=== PATIENT | male | born 1950 | race Caucasian/White ===

== ENCOUNTER → 2016-05-21 | Outpatient (CLI) | payer MEDICARE ==
--- NOTE | 2016-05-21 08:18 | US ---
EXAMINATION TYPE: US liver DATE OF EXAM: 05/21/2016 7:58 AM COMPARISON: CT on PACS CLINICAL HISTORY: elevated liver enzymes. EXAM MEASUREMENTS: Liver Length: 8.5 cm Gallbladder Wall: surgically absent CBD: 0.4 cm Right Kidney: 10.3 x 5.9 x 5.9 cm ANATOMY: Pancreas: visualized portions wnl Liver: wnl Gallbladder: Surgically absent CBD: Within normal limits Right Kidney: No hydronephrosis or masses seen 5.1 x 2.6 x 2.6 cm echogenic lesion between liver and superior pole right kidney, corresponds to fat containing adrenal tumor described on CT's. IMPRESSION: 1. Myolipoma of the right adrenal gland. 2. Changes of prior cholecystectomy.
[2016-05-21 09:16] LABS: ALT 169 U/L (21-72); AST 47 U/L (17-59); Alkaline Phosphatase 251 U/L (38-126); Amylase 94 U/L (30-110); Anion Gap 11 mmol/L; Blood Urea Nitrogen 12 mg/dL (9-20); Calcium 9.4 mg/dL (8.4-10.2); Carbon Dioxide 25 mmol/L (22-30); Chloride 106 mmol/L (98-107); Glucose 102 mg/dL (74-99); Non-African American GFR(MDRD) >60 (>60 ml/min/1.73 sqM); Potassium 3.7 mmol/L (3.5-5.1); Sodium 142 mmol/L (137-145); Total Bilirubin 0.6 mg/dL (0.2-1.3); Total Protein 6.2 g/dL (6.3-8.2)
== END | disposition home or self-care (01) ==
LOC: RADUSWWP 07:38
PROVIDERS: ATTEND Family Medicine
DX: D17.79 Benign lipomatous neoplasm of other sites (principal); Z90.49 Acquired absence of other specified parts of digestive tract
CPT/HCPCS: 76705; 80053; 82150; 83690

== ENCOUNTER 2016-06-07 09:58 | Emergency (ER) | payer MEDICARE ==
[2016-06-07] MEDS ORDERED: MORPHINE SULFATE 4 MG/ML SYRINGE IV STA ×2 (10:20→11:41)
[2016-06-07] MEDS ORDERED: SODIUM CHLORIDE 0.9% 1,000 ML IV STA (10:20)
[2016-06-07] MEDS ORDERED: ONDANSETRON 4 MG/2 ML VIAL IVP STA ×2 (10:20→11:41)
--- NOTE | 2016-06-07 10:23 | ED ---
General Adult HPI - General Chief complaint: Abdominal Pain Stated complaint: LIVER PROBLEMS Time Seen by Provider: 06/07/16 10:15 Source: patient, RN notes reviewed Mode of arrival: wheelchair Limitations: no limitations - History of Present Illness Initial comments: Patient 65-year-old male who presents emergency room today with a chief complaint of symptoms of nausea vomiting over the last 2-3 days. Patient admits to history of cannabinoid hyperemesis syndrome. Patient states that he' s also has a history of chronic pain due to a fall that occurred over 20 years ago. States he is working at home. States been unable to keep this down. Patient denies any abdominal pain currently. He denies any other complaints or associated symptoms. Patient denies any recent fever, chills, shortness of breath, chest pain, back pain, numbness or tingling, dysuria or hematuria, constipation or diarrhea, headaches or visual changes, or any other complaints. - Related Data Home Medications Medication Instructions Recorded Confirmed Morphine Sulfate Ir [Msir] 15 mg PO Q6H 06/07/16 06/07/16 amLODIPine BESYLATE/BENAZEPRIL 1 cap PO DAILY 06/07/16 06/07/16 [Lotrel 10-40 mg Capsule] Previous Rx's Medication Instructions Recorded Ondansetron Odt [Zofran ODT] 4 mg PO Q8HR PRN #15 tab 06/07/16 Allergies Allergy/AdvReac Type Severity Reaction Status Date / Time chloramphenicol Allergy Confusion Verified 06/07/16 11:21 [From Chloromycetin] chloramphenicol sod succ Allergy Confusion Verified 06/07/16 11:21 [From Chloromycetin] Penicillins Allergy Unknown Verified 06/07/16 11:21 Childhood quinine Allergy Unknown Verified 06/07/16 11:21 Childhood Review of Systems ROS Statement: Those systems with pertinent positive or pertinent negative responses have been documented in the HPI. ROS Other: All systems not noted in ROS Statement are negative. Past Medical History Past Medical History: GERD/Reflux, Hypertension, Liver Disease Additional Past Medical History / Comment(s): hip pain, History of Any Multi-Drug Resistant Organisms: None Reported Past Surgical History: Cholecystectomy Additional Past Surgical History / Comment(s): right hip, shoulder, elbows Past Psychological History: No Psychological Hx Reported Smoking Status: Never smoker Past Alcohol Use History: None Reported Past Drug Use History: Marijuana General Exam - General Exam Comments Initial Comments: General: The patient is awake and alert, in no distress, and does not appear acutely ill. Eye: Pupils are equal, round and reactive to light, extra-ocular movements are intact. No nystagmus. There is normal conjunctiva bilaterally. No signs of icterus. Ears, nose, mouth and throat: There are moist mucous membranes and no oral lesions. Neck: The neck is supple, there is no tenderness or JVD. Cardiovascular: There is a regular rate and rhythm. No murmur, rub or gallop is appreciated. Respiratory: Lungs are clear to auscultation, respirations are non-labored, breath sounds are equal. No wheezes, stridor, rales, or rhonchi. Gastrointestinal: Soft, non-distended, non-tender abdomen without masses or organomegaly noted. There is no rebound or guarding present. No CVA tenderness. Bowel sounds are unremarkable. Musculoskeletal: Normal ROM, no tenderness. Strength 5/5. Sensation intact. Pulses equal bilaterally 2+. Neurological: A&O x 3. CN II-XII intact, There are no obvious motor or sensory deficits. Coordination appears grossly intact. Speech is normal. Skin: Skin is warm and dry and no rashes or lesions are noted. Psychiatric: Cooperative, appropriate mood & affect, normal judgment. Limitations: no limitations Course Vital Signs 06/07/16 06/07/16 10:00 12:11 Temperature 97.0 F L 100.5 F H Pulse Rate 122 H 100 Respiratory 18 20 Rate Blood Pressure 172/93 140/80 O2 Sat by Pulse 99 97 Oximetry Medical Decision Making - Medical Decision Making Patient reexamined at this time shows no signs of distress. Patient. Better here in the emergency room. Patient will be discharged home with nausea medication. Advised to continue oral fluids. His mid to some history of constipation. Magnesium citrate. Advised to follow-up family doctor over the next 2 days or return here to emergency room if any symptoms increase or worsen or for any other concerns. - Lab Data Result diagrams: 06/07/16 10:40 06/07/16 10:40 Lab Results 06/07/16 06/07/16 06/07/16 Range/Units 10:40 10:40 11:35 WBC 9.0 (3.8-10.6) k/uL RBC 5.15 (4.30-5.90) m/uL Hgb 16.0 (13.0-17.5) gm/dL Hct 47.1 (39.0-53.0) % MCV 91.5 (80.0-100.0) fL MCH 31.2 (25.0-35.0) pg MCHC 34.0 (31.0-37.0) g/dL RDW 12.9 (11.5-15.5) % Plt Count 271 (150-450) k/uL Neutrophils % 90 % Lymphocytes % 7 % Monocytes % 3 % Eosinophils % 0 % Basophils % 0 % Neutrophils # 8.1 H (1.3-7.7) k/uL Lymphocytes # 0.6 L (1.0-4.8) k/uL Monocytes # 0.2 (0-1.0) k/uL Eosinophils # 0.0 (0-0.7) k/uL Basophils # 0.0 (0-0.2) k/uL Sodium 147 H (137-145) mmol/L Potassium 3.6 (3.5-5.1) mmol/L Chloride 103 (98-107) mmol/L Carbon Dioxide 28 (22-30) mmol/L Anion Gap 16 mmol/L BUN 18 (9-20) mg/dL Creatinine 0.90 (0.66-1.25) mg/dL Est GFR (MDRD) Af Amer >60 (>60 ml/min/1.73 sqM) Est GFR (MDRD) Non-Af >60 (>60 ml/min/1.73 sqM) Glucose 168 H (74-99) mg/dL Calcium 11.3 H (8.4-10.2) mg/dL Total Bilirubin 0.8 (0.2-1.3) mg/dL AST 44 (17-59) U/L ALT 134 H (21-72) U/L Alkaline Phosphatase 249 H (38-126) U/L Total Protein 7.0 (6.3-8.2) g/dL Albumin 4.3 (3.5-5.0) g/dL Amylase 48 (30-110) U/L Lipase 53 (23-300) U/L Urine Color Yellow Urine Appearance Turbid (Clear) Urine pH 8.5 H (5.0-8.0) Ur Specific [place] 1.017 (1.001-1.035) Urine Protein Trace H (Negative) Urine Glucose (UA) Negative (Negative) Urine Ketones Negative (Negative) Urine Blood Negative (Negative) Urine Nitrate Negative (Negative) Urine Bilirubin Negative (Negative) Urine Urobilinogen <2.0 (<2.0) mg/dL Ur Leukocyte Esterase Negative (Negative) Amorphous Sediment Occasional H (None) /hpf Urine Mucus Occasional H (None) /hpf Disposition Clinical Impression: Nausea & vomiting Disposition: HOME SELF-CARE Condition: Good Instructions: Acute Nausea and Vomiting (ED) Additional Instructions: Please use medication as discussed. Please follow-up with family doctor in the next 2 days of symptoms have not improved. Please return to emergency room if the symptoms increase or worsen or for any other concerns. Prescriptions: Ondansetron Odt [Zofran ODT] 4 mg PO Q8HR PRN #15 tab PRN Reason: Nausea Time of Disposition: 12:24
[2016-06-07] MEDS: SODIUM CHLORIDE 0.9% 1,000 ML IV STA ×2 (10:48→12:03)
[2016-06-07 11:04] LABS: Basophils % (A) 0 %; CH 32.5; CHCM 35.6; Eosinophils % (A) 0 %; HCT 47.1 % (39.0-53.0); HDW 2.63; Luc # (Auto) 0.03; Luc % (Auto) 0; Lymphocytes # (A) 0.6 k/uL (1.0-4.8); Lymphocytes % (A) 7 %; MCH 31.2 pg (25.0-35.0); MCV 91.5 fL (80.0-100.0); Mean Platelet Volume 6.4; Monocytes # (A) 0.2 k/uL (0-1.0); Monocytes % (A) 3 %; Neutrophils # (A) 8.1 k/uL (1.3-7.7); Neutrophils % (A) 90 %; RBC 5.15 m/uL (4.30-5.90); RDW 12.9 % (11.5-15.5); WBC (Perox) 9.26
--- NOTE | 2016-06-07 11:08 | XR ---
EXAMINATION TYPE: XR KUB DATE OF EXAM: 06/07/2016 11:03 AM CLINICAL HISTORY: Abdominal pain with vomiting and constipation for 4 days. TECHNIQUE: 2 upright KUB images of the abdomen are obtained. COMPARISON: CT abdomen and pelvis July 15, 2014 FINDINGS: Scattered gas is seen in non-distended small bowel loops. Gas and fecal material is seen in non-distended colon and rectum. Lung bases are clear. Cholecystectomy clips are redemonstrated. Osseous structures are demineralized. Surgical changes from right pelvic fracture and repair are redemonstrated. Advanced arthropathy righ t hip joint with lateral subluxation and advanced joint space loss with subchondral cystic change and ossific bridging is all redemonstrated. Healed fracture left pubic symphysis is again seen. IMPRESSION: Overall nonobstructive bowel gas pattern.
[2016-06-07 11:09] LABS: ALT 134 U/L (21-72); AST 44 U/L (17-59); Alkaline Phosphatase 249 U/L (38-126); Amylase 48 U/L (30-110); Anion Gap 16 mmol/L; Blood Urea Nitrogen 18 mg/dL (9-20); Calcium 11.3 mg/dL (8.4-10.2); Carbon Dioxide 28 mmol/L (22-30); Chloride 103 mmol/L (98-107); Glucose 168 mg/dL (74-99); Non-African American GFR(MDRD) >60 (>60 ml/min/1.73 sqM); Potassium 3.6 mmol/L (3.5-5.1); Sodium 147 mmol/L (137-145); Total Bilirubin 0.8 mg/dL (0.2-1.3)
[2016-06-07] MEDS ORDERED: FAMOTIDINE 20 MG/2 ML VIAL IV STA (11:53)
[2016-06-07 12:12] VITALS: BP 140/80; PULSE 100; RESP 20; TEMP 100.5
[2016-06-07 12:12] LABS: Amorphous Sediment,Urine Occasional /hpf; Appearance,Urine Turbid (Clear); Bilirubin,Urine Negative (Negative); Glucose,Urine (UA) Negative (Negative); Ketones,Urine Negative (Negative); Leukocyte Esterase,Urine Negative (Negative); Mucus,Urine Occasional /hpf; Nitrite,Urine Negative (Negative); PH, Urine 8.5 (5.0-8.0); Particle Count 48063; Protein,Urine Trace (Negative); Specific Gravity,Urine 1.017 (1.001-1.035); UA Billing (MACRO vs. MICRO) MICRO; Urobilinogen,Urine <2.0 mg/dL (<2.0)
[2016-06-07] MEDS ORDERED: MAGNESIUM CITRATE 296 ML BOTTLE PO ONE (12:25)
== END 2016-06-07 12:44 | disposition home or self-care (01) ==
LOC: EC 09:58
DX: R11.2 Nausea with vomiting, unspecified (principal); I10 Essential (primary) hypertension; G89.29 Other chronic pain; Z79.891 Long term (current) use of opiate analgesic; Z79.899 Other long term (current) drug therapy; Z88.0 Allergy status to penicillin; Z88.8 Allergy status to other drugs, medicaments and biological substances
CPT/HCPCS: 96374; 96375 ×2; 96376 ×2; 96361 ×3; 36415; 80053; 82150; 83690; 85025; 81001; 74000; 99284; J2270; J2405

== ENCOUNTER → 2017-05-12 | Outpatient (CLI) | payer MEDICARE ==
--- NOTE | 2017-05-12 16:04 | CT ---
EXAMINATION TYPE: CT abdomen wo/w con DATE OF EXAM: 05/12/2017 COMPARISON: 12/19/2014 CT scan, ultrasound 04/07/2017 HISTORY: Elevated liver enzymes CT DLP: 1746 mGycm Automated exposure control for dose reduction was used. TECHNIQUE: Helical acquisition of images was performed from the lung bases through the top of iliac crest to include entire abdomen. CONTRAST: 100 cc Omnipaque [id number] FINDINGS: LUNG BASES: No significant abnormality is appreciated. LIVER/GB: Liver demonstrates intrahepatic and extrahepatic biliary dilation with postcholecystectomy changes.. PANCREAS: No significant abnormality is seen. SPLEEN: No significant abnormality is seen. ADRENALS: Large fat containing mass measuring 5.8 cm in the right adrenal gland is most typical of a myelo lipoma.. Thickening left left adrenal gland be seen with adrenal hyperplasia. KIDNEYS: There are numerous hypodense lesions within the kidneys some of which are too small to kevon cterize. Larger lesions compatible simple cyst. Is a least one lesion within the mid to lower pole po sterior cortex which does not meet the criteria of a simple cyst measuring 1.2 cm and should be corre lated with MRI. BOWEL: No significant abnormality is seen. LYMPH NODES: No significant abnormality is seen. OSSEOUS STRUCTURES: Degenerative changes spine noted. Extensive previous surgery involving the pelvi c bones.. FREE AIR: No free air is visualized. OTHER: Atherosclerotic change aorta. No evidence of aneurysm. Small hiatal hernia incidentally noted IMPRESSION: 1. There is moderate intrahepatic and extra hepatic biliary dilation. Findings likely are related to postsurgical cholecystectomy changes. The common bile duct does measure greater than 1 cm at 1.6 cm w hich does appear to be dilated for postcholecystectomy patients. This could be correlated with MRCP o r ERCP as clinically warranted. 2. Large right adrenal mass appears stable and most typical myelo lipoma. 3. Numerous renal lesions most likely in the basis of hepatic cysts. There is a single lesion within the mid to lower pole right renal cortex which does not meet the criteria of a simple cyst by Hounsfi eld unit measurement. This could be correlated with MRI.
== END | disposition home or self-care (01) ==
LOC: RADCTMAIN 14:42
DX: K83.8 Other specified diseases of biliary tract (principal); E27.8 Other specified disorders of adrenal gland; N28.89 Other specified disorders of kidney and ureter
CPT/HCPCS: 74170; Q9967

== ENCOUNTER → 2017-07-14 | Outpatient (CLI) | payer MEDICARE ==
--- NOTE | 2017-07-15 00:06 | MR ---
EXAMINATION TYPE: MR abdomen wo/w con DATE OF EXAM: 07/14/2017 COMPARISON: NONE HISTORY: Abnormal findings follow-up abnormal renal CT scan. CONTRAST: Standard multiplanar, multisequence MRI departmental protocol utilizing 10 mL intravenous Gadavist ga dolinium contrast. FINDINGS: There is mild ectasia of the biliary tree. Cholecystectomy is noted. Common bile duct is 1. 5 cm. There is no evidence of pancreatic mass. Spleen appears normal. I see no discrete liver mass. There are bilateral renal cortical cysts and more on the left side. The largest is on the left side a nd measures 2.4 cm. I see no evidence of an intestinal mass. There is no sign of ascites. There is no sign of pleural effusion. There is no evidence of retroperitoneal adenopathy. There is a fat signal mass involving the right adrenal gland. This is probably a lipoma or myelolipoma. There is a small mi xed signal 1 cm somewhat exophytic cortical lesion on the posterior right kidney. This appears nonenh ancing. IMPRESSION: Renal cortical cysts. Atypical nonenhancing small lesion on the posterior right kidney is not changed in size compared to CT scan of 05/12/2017 and is probably a complex cyst. I think this lesion is prese nt on the old CT scan of 07/15/2014 and not changed in size and therefore no further surveillance is n eeded. There is stable fat signal mass on the right adrenal gland consistent with benign disease.
== END | disposition home or self-care (01) ==
LOC: RADMRIMAIN 10:26
DX: N28.1 Cyst of kidney, acquired (principal); N28.89 Other specified disorders of kidney and ureter; E27.8 Other specified disorders of adrenal gland
CPT/HCPCS: 74183; A9581

== ENCOUNTER → 2019-10-18 | Outpatient (CLI) | payer MEDICARE ==
--- NOTE | 2019-10-18 13:06 | US ---
EXAMINATION TYPE: US liver DATE OF EXAM: 10/18/2019 COMPARISON: CT 05/12/2017 CLINICAL HISTORY: 69-year-old male R74.8 Abn liver enzymes. Elevated liver enzymes, history of cholec ystectomy TECHNIQUE: Multiple sonographic images of the right upper quadrant are obtained. FINDINGS: EXAM MEASUREMENTS: Liver Length: 15.0 cm CBD: 1.4 cm Right Kidney: 10.6 x 5.7 x 5.5 cm Pancreas: obscured by overlying midline bowel gas Liver: mildly heterogeneous. No focal lesion is identified. Gallbladder: surgically absent Evidence for sonographic Briones's sign: no CBD: dilated, limited by overlying bowel gas . This measures about 1.7 cm on the prior CT. Right Kidney: 0.7cm echogenic focus mid pole most suggestive of a vascular calcification when correl ating with CT, 1.3cm cystic area lateral superior pole, 1.1cm cystic area lateral mid pole 4.1 x 2.9 x 3.9cm echogenic area superior to right kidney, seen on previous scan. When correlated w ith CT, most compatible with a benign myelolipoma. IMPRESSION: 1. Dilated bile duct at 1.4 cm seems to be unchanged back to 2018. Correlate with alkaline phosphatas e and bilirubin levels. 2. Status post cholecystectomy. 3. Known, benign 4.1 cm right-sided adrenal myelolipoma.
[2019-10-18 13:29] LABS: Albumin 4.7 g/dL (3.5-5.0); Calcium 9.8 mg/dL (8.4-10.2); Potassium 4.5 mmol/L (3.5-5.1); Total Bilirubin 0.6 mg/dL (0.2-1.3); Total Protein 7.7 g/dL (6.3-8.2)
[2019-10-18 17:35] LABS: Protein, Total 7.2 g/dL (6.2-8.2)
[2019-10-18 18:01] LABS: % Iron Saturation 23.01 (15.00-50.00)
[2019-10-18 18:09] LABS: Ferritin 57.4 ng/mL (22.0-322.0)
[2019-10-19 13:29] LABS: Ceruloplasmin 23.3 mg/dL (20.0-60.0)
[2019-10-20 12:31] LABS: Liver/Kidney Microsome Antibod 1.3 UNITS (<=20)
[2019-10-21 10:27] LABS: Albumin 4.51 g/dL (3.80-4.90); Gamma Globulin 0.94 g/dL (0.70-1.50)
== END | disposition home or self-care (01) ==
LOC: RADUSWWP 10:33
PROVIDERS: ATTEND Internal Medicine Gastroenterology
DX: K83.8 Other specified diseases of biliary tract (principal); D17.79 Benign lipomatous neoplasm of other sites; Z90.49 Acquired absence of other specified parts of digestive tract
CPT/HCPCS: 36415; 76705; 80053; 81596; 82103; 82150; 82390; 82728; 83516; 83540; 83550; 83690; 84165; 84481; 86376

== ENCOUNTER 2022-01-20 12:22 | Inpatient (IN) | payer MEDICARE ==
[2022-01-20 12:50] LABS: Glucose,Whole Blood 142 mg/dL (70-110)
[2022-01-20 12:54] LABS: Appearance,Urine Clear (Clear); Bilirubin,Urine Negative (Negative); Blood,Urine Small (Negative); Color,Urine Light Yellow; Glucose,Urine (UA) Negative (Negative); Ketones,Urine 1+ (Negative); Leukocyte Esterase,Urine Negative (Negative); Mucus,Urine Rare /hpf; Nitrite,Urine Negative (Negative); Protein,Urine 1+ (Negative); RBC,Urine <1 /hpf (0-5); Specific Gravity,Urine 1.014 (1.001-1.035); Squamous Epithelial Cell,Urine <1 /hpf (0-4); Urobilinogen,Urine <2.0 mg/dL (<2.0); WBC,Urine <1 /hpf (0-5)
[2022-01-20 13:06] LABS: Amphetamine Screen,Urine Not Detected (NotDetected); Barbiturate Screen,Urine Not Detected (NotDetected); Benzodiazepines Screen,Urine Not Detected (NotDetected); Cocaine Screen,Urine Not Detected (NotDetected); Methadone Screen, Urine Not Detected (NotDetected); Opiate Screen,Urine Not Detected (NotDetected); Oxycodone Screen, Urine Detected (NotDetected); Phencyclidine Screen,Urine Not Detected (NotDetected); Tricyclic Antidepressant,Urine Not Detected (NotDetected); Urn Cannabinoid Scrn Detected (NotDetected)
[2022-01-20 13:21] LABS: Basophils % (A) 0 %; Eosinophils # (A) 0.2 k/uL (0-0.7); Eosinophils % (A) 1 %; HCT 52.1 % (39.0-53.0); HGB 17.1 gm/dL (13.0-17.5); Lymphocytes % (A) 15 %; MCH 31.5 pg (25.0-35.0); MCHC 32.9 g/dL (31.0-37.0); MCV 95.9 fL (80.0-100.0); Mean Platelet Volume 7.8; Monocytes # (A) 0.5 k/uL (0-1.0); Monocytes % (A) 4 %; Neutrophils # (A) 10.2 k/uL (1.3-7.7); Neutrophils % (A) 79 %; Platelet Count 186 k/uL (150-450); RBC 5.43 m/uL (4.30-5.90); RDW 12.3 % (11.5-15.5)
--- NOTE | 2022-01-20 13:28 | CT ---
EXAMINATION TYPE: CT brain renny wo con DATE OF EXAM: 01/20/2022 COMPARISON: None HISTORY: 70-year-old male with pain after unwitnessed fall CT DLP: 1504.2 mGycm Automated exposure control for dose reduction was used. Technique: Examination of the head was done in axial plane without intravenous contrast. Coronal and sagittal reconstructions performed. CT of the cervical spine was obtained in axial plane without intravenous injection of contrast mater ial. Coronal and sagittal reformatted images were obtained from the axial views for evaluation of f ractures, spinal alignment and canal. FINDINGS: Head: There is no evidence of acute intracranial hemorrhage, acute ischemic changes, mass, mass-effect, or extra-axial fluid collection. There is no effacement of cerebral sulci or basal subarachnoid cister ns. There is no hydrocephalus. There is no midline shift. Honeycutt-white matter distinction is preserv ed. Mild patchy white matter hypodensities in the surgical hemispheres. Rightward nasal septal deviation. Mild mucosal thickening ethmoid air cells. Mastoid air cells are we ll pneumatized. Orbits and globes are intact. Cervical spine: No craniocervical junction abnormality, predental space widening, or prevertebral soft tissue swellin g. Degenerative change of the C1 dens articulation. Mild multilevel degenerative disc disease throughout the cervical spine. Advanced hypertrophic facet and uncovertebral joint arthropathy throughout. Some degenerative bony an kylosis of the facet joints says that C3-C4 on the right and C4-C5 on the left. No acute fracture of the cervical spine. Alignment is maintained. Variable mild to moderate bilateral neuroforaminal stenoses. Sagittal and coronal reformatted images confirm above findings. COMBINED IMPRESSION: 1. No acute intracranial abnormality seen. Mild patchy burden of chronic small vessel ischemic diseas e. 2. Moderate multilevel spondylotic change. No acute fracture or malalignment of the cervical spine.
--- NOTE | 2022-01-20 13:30 | XR ---
EXAMINATION TYPE: XR chest 2V, XR pelvis AP view DATE OF EXAM: 01/20/2022 COMPARISON: None HISTORY: 71-year-old male fall, confusion, pain FINDINGS: Chest: Heart mildly enlarged. Mild interstitial prominence of the chronic appearance. No consolidation, pneu mothorax, or pleural effusion. The cardiomediastinal silhouette, aorta, and pulmonary vasculature are within normal limits. Lungs and pleural spaces are clear. Pelvis: Osteopenia. Pelvis is rotated towards the right. Degenerative changes left SI joint. Extensive previo us fracture fixation throughout the right side of the pelvis. There is end-stage [id number] degener ative change at the right hip with bony remodeling. There appears to be a chronic healed fracture def ormity of the right femoral neck. No displaced fracture otherwise seen. IMPRESSION: 1. Chest: Mild cardiomegaly. There are chronic appearing changes. No focal infiltrate or pleural effu cintia. 2. Pelvis: Limited by osteopenia and rotation. Previous internal fixation of fracture deformities inv olving the right hemipelvis. There is posttraumatic end-stage, [id number] right hip OA with bony re modeling. Suspect old healed fracture of the right femoral neck as well. No new displaced fracture cl early identified.
[2022-01-20 13:37] LABS: ALT 29 U/L (4-49); AST 29 U/L (17-59); African American GFR (CKD) >90 (>60 ml/min/1.73 sqM); Albumin 4.5 g/dL (3.5-5.0); Alcohol <10 mg/dL; Alkaline Phosphatase 122 U/L (38-126); Anion Gap 15 mmol/L; Blood Urea Nitrogen 14 mg/dL (9-20); Calcium 8.9 mg/dL (8.4-10.2); Carbon Dioxide 21 mmol/L (22-30); Chloride 103 mmol/L (98-107); Glucose 152 mg/dL (74-99); Non-African American GFR(CKD) 80 (>60 ml/min/1.73 sqM); Potassium 3.7 mmol/L (3.5-5.1); Sodium 139 mmol/L (137-145); Total Bilirubin 0.8 mg/dL (0.2-1.3)
[2022-01-20 13:46] LABS: Partial Thromboplastin Time 21.3 sec (22.0-30.0)
--- NOTE | 2022-01-20 13:46 | ED ---
General Adult HPI - General Chief complaint: Altered Mental Status Stated complaint: AMS Time Seen by Provider: 01/20/22 12:24 Source: patient, family, EMS, RN notes reviewed, old records reviewed Mode of arrival: EMS Limitations: altered mental status - History of Present Illness Initial comments: 71-year-old male who presents with altered level consciousness, agitation. Patient had been found by family members after falling off the couch. He was p reviously sleeping on the couch paramedics were called. According to the daughter the patient had abnormal respirations. He was agitated and required Versed by paramedics. There was no witnessed seizure activity. The patient had no preceding illness or complaint. Upon arrival he is unable to give a history. He appears to be moving all things symmetrically. There is no external signs of head trauma. - Related Data Home Medications Medication Instructions Recorded Confirmed amLODIPine BESYLATE/BENAZEPRIL 1 cap PO DAILY 06/07/16 01/20/22 [Lotrel 10-40 mg Capsule] oxyCODONE-APAP 10-325MG [Percocet 1 tab PO QID 01/20/22 01/20/22 10-325 mg] Allergies Allergy/AdvReac Type Severity Reaction Status Date / Time chloramphenicol Allergy Confusion Verified 01/20/22 14:40 [From Chloromycetin] chloramphenicol sod succ Allergy Confusion Verified 01/20/22 14:40 [From Chloromycetin] Penicillins Allergy Unknown Verified 01/20/22 14:40 Childhood quinine Allergy Unknown Verified 01/20/22 14:40 Childhood Review of Systems ROS Statement: Those systems with pertinent positive or pertinent negative responses have been documented in the HPI. ROS Other: All systems not noted in ROS Statement are negative. Past Medical History Past Medical History: GERD/Reflux, Hypertension, Liver Disease Additional Past Medical History / Comment(s): hip pain, History of Any Multi-Drug Resistant Organisms: None Reported Past Surgical History: Cholecystectomy Additional Past Surgical History / Comment(s): right hip, shoulder, elbows Past Psychological History: No Psychological Hx Reported Past Alcohol Use History: None Reported Past Drug Use History: Marijuana General Exam Limitations: altered mental status General appearance: alert, in distress Head exam: Present: atraumatic, normocephalic Eye exam: Present: normal appearance, PERRL ENT exam: Present: mucous membranes dry Neck exam: Present: normal inspection. Absent: tenderness, meningismus Respiratory exam: Present: normal lung sounds bilaterally. Absent: respiratory distress, wheezes Cardiovascular Exam: Present: regular rate, normal rhythm GI/Abdominal exam: Present: soft. Absent: distended, tenderness, guarding Extremities exam: Present: normal capillary refill Neurological exam: Present: alert. Absent: oriented X3, motor sensory deficit Skin exam: Present: warm, dry, intact. Absent: cyanosis, diaphoretic Course Vital Signs 01/20/22 12:25 Temperature 98.2 F Pulse Rate 87 Respiratory 18 Rate Blood Pressure 132/81 O2 Sat by Pulse 100 Oximetry EKG Findings - EKG Comments: EKG Findings:: EKG: Sinus rhythm, rate of 60, CO interval 132, QRS duration 103, QTC [address] segment changes. Medical Decision Making - Medical Decision Making 71-year-old male with agitation, altered, concern for new onset seizure. Patient is in sinus rhythm. Head CT is negative for itch cream hemorrhage or mass effect, relatively normal laboratory testing. Patient given Keppra in the emergency department. He will be admitted with seizure precautions, monitored on telemetry. Case discussed with Dr. Santiago who will admit. - Lab Data Result diagrams: 01/20/22 12:52 01/20/22 12:52 Lab Results 01/20/22 01/20/22 01/20/22 Range/Units 12:44 12:49 12:52 WBC 13.0 H (3.8-10.6) k/uL RBC 5.43 (4.30-5.90) m/uL Hgb 17.1 (13.0-17.5) gm/dL Hct 52.1 (39.0-53.0) % MCV 95.9 (80.0-100.0) fL MCH 31.5 (25.0-35.0) pg MCHC 32.9 (31.0-37.0) g/dL RDW 12.3 (11.5-15.5) % Plt Count 186 (150-450) k/uL MPV 7.8 Neutrophils % 79 % Lymphocytes % 15 % Monocytes % 4 % Eosinophils % 1 % Basophils % 0 % Neutrophils # 10.2 H (1.3-7.7) k/uL Lymphocytes # 2.0 (1.0-4.8) k/uL Monocytes # 0.5 (0-1.0) k/uL Eosinophils # 0.2 (0-0.7) k/uL Basophils # 0.0 (0-0.2) k/uL PT (9.0-12.0) sec INR (<1.2) APTT (22.0-30.0) sec Sodium (137-145) mmol/L Potassium (3.5-5.1) mmol/L Chloride (98-107) mmol/L Carbon Dioxide (22-30) mmol/L Anion Gap mmol/L BUN (9-20) mg/dL Creatinine (0.66-1.25) mg/dL Est GFR (CKD-EPI)AfAm (>60 ml/min/1.73 sqM) Est GFR (CKD-EPI)NonAf (>60 ml/min/1.73 sqM) Glucose (74-99) mg/dL POC Glucose (mg/dL) 142 H (70-110) mg/dL POC Glu Insole Rasper ID Dayhoit, Rigoberto Calcium (8.4-10.2) mg/dL Total Bilirubin (0.2-1.3) mg/dL AST (17-59) U/L ALT (4-49) U/L Alkaline Phosphatase (38-126) U/L Ammonia (<30) umol/L Troponin I (0.000-0.034) ng/mL Total Protein (6.3-8.2) g/dL Albumin (3.5-5.0) g/dL Urine Color Light Yellow Urine Appearance Clear (Clear) Urine pH 5.0 (5.0-8.0) Ur Specific Moon 1.014 (1.001-1.035) Urine Protein 1+ H (Negative) Urine Glucose (UA) Negative (Negative) Urine Ketones 1+ H (Negative) Urine Blood Small H (Negative) Urine Nitrite Negative (Negative) Urine Bilirubin Negative (Negative) Urine Urobilinogen <2.0 (<2.0) mg/dL Ur Leukocyte Esterase Negative (Negative) Urine RBC <1 (0-5) /hpf Urine WBC <1 (0-5) /hpf Ur Squamous Epith Cells <1 (0-4) /hpf Urine Mucus Rare H (None) /hpf Urine Opiates Screen Not Detected (NotDetected) Ur Oxycodone Screen Detected H (NotDetected) Urine Methadone Screen Not Detected (NotDetected) Ur Propoxyphene Screen Not Detected (NotDetected) Ur Barbiturates Screen Not Detected (NotDetected) U Tricyclic Antidepress Not Detected (NotDetected) Ur Phencyclidine Scrn Not Detected (NotDetected) Ur Amphetamines Screen Not Detected (NotDetected) U Methamphetamines Scrn Not Detected (NotDetected) U Benzodiazepines Scrn Not Detected (NotDetected) Urine Cocaine Screen Not Detected (NotDetected) U Marijuana (THC) Screen Detected H (NotDetected) Serum Alcohol mg/dL 01/20/22 01/20/22 01/20/22 Range/Units 12:52 12:52 12:52 WBC (3.8-10.6) k/uL RBC (4.30-5.90) m/uL Hgb (13.0-17.5) gm/dL Hct (39.0-53.0) % MCV (80.0-100.0) fL MCH (25.0-35.0) pg MCHC (31.0-37.0) g/dL RDW (11.5-15.5) % Plt Count (150-450) k/uL MPV Neutrophils % % Lymphocytes % % Monocytes % % Eosinophils % % Basophils % % Neutrophils # (1.3-7.7) k/uL Lymphocytes # (1.0-4.8) k/uL Monocytes # (0-1.0) k/uL Eosinophils # (0-0.7) k/uL Basophils # (0-0.2) k/uL PT 11.0 (9.0-12.0) sec INR 1.0 (<1.2) APTT 21.3 L (22.0-30.0) sec Sodium 139 (137-145) mmol/L Potassium 3.7 (3.5-5.1) mmol/L Chloride 103 (98-107) mmol/L Carbon Dioxide 21 L (22-30) mmol/L Anion Gap 15 mmol/L BUN 14 (9-20) mg/dL Creatinine 0.97 (0.66-1.25) mg/dL Est GFR (CKD-EPI)AfAm >90 (>60 ml/min/1.73 sqM) Est GFR (CKD-EPI)NonAf 80 (>60 ml/min/1.73 sqM) Glucose 152 H (74-99) mg/dL POC Glucose (mg/dL) (70-110) mg/dL POC Glu Insole Rasper ID Calcium 8.9 (8.4-10.2) mg/dL Total Bilirubin 0.8 (0.2-1.3) mg/dL AST 29 (17-59) U/L ALT 29 (4-49) U/L Alkaline Phosphatase 122 (38-126) U/L Ammonia 22 (<30) umol/L Troponin I (0.000-0.034) ng/mL Total Protein 7.0 (6.3-8.2) g/dL Albumin 4.5 (3.5-5.0) g/dL Urine Color Urine Appearance (Clear) Urine pH (5.0-8.0) Ur Specific Moon (1.001-1.035) Urine Protein (Negative) Urine Glucose (UA) (Negative) Urine Ketones (Negative) Urine Blood (Negative) Urine Nitrite (Negative) Urine Bilirubin (Negative) Urine Urobilinogen (<2.0) mg/dL Ur Leukocyte Esterase (Negative) Urine RBC (0-5) /hpf Urine WBC (0-5) /hpf Ur Squamous Epith Cells (0-4) /hpf Urine Mucus (None) /hpf Urine Opiates Screen (NotDetected) Ur Oxycodone Screen (NotDetected) Urine Methadone Screen (NotDetected) Ur Propoxyphene Screen (NotDetected) Ur Barbiturates Screen (NotDetected) U Tricyclic Antidepress (NotDetected) Ur Phencyclidine Scrn (NotDetected) Ur Amphetamines Screen (NotDetected) U Methamphetamines Scrn (NotDetected) U Benzodiazepines Scrn (NotDetected) Urine Cocaine Screen (NotDetected) U Marijuana (THC) Screen (NotDetected) Serum Alcohol <10 mg/dL 01/20/22 Range/Units 12:52 WBC (3.8-10.6) k/uL RBC (4.30-5.90) m/uL Hgb (13.0-17.5) gm/dL Hct (39.0-53.0) % MCV (80.0-100.0) fL MCH (25.0-35.0) pg MCHC (31.0-37.0) g/dL RDW (11.5-15.5) % Plt Count (150-450) k/uL MPV Neutrophils % % Lymphocytes % % Monocytes % % Eosinophils % % Basophils % % Neutrophils # (1.3-7.7) k/uL Lymphocytes # (1.0-4.8) k/uL Monocytes # (0-1.0) k/uL Eosinophils # (0-0.7) k/uL Basophils # (0-0.2) k/uL PT (9.0-12.0) sec INR (<1.2) APTT (22.0-30.0) sec Sodium (137-145) mmol/L Potassium (3.5-5.1) mmol/L Chloride (98-107) mmol/L Carbon Dioxide (22-30) mmol/L Anion Gap mmol/L BUN (9-20) mg/dL Creatinine (0.66-1.25) mg/dL Est GFR (CKD-EPI)AfAm (>60 ml/min/1.73 sqM) Est GFR (CKD-EPI)NonAf (>60 ml/min/1.73 sqM) Glucose (74-99) mg/dL POC Glucose (mg/dL) (70-110) mg/dL POC Glu Insole Rasper ID Calcium (8.4-10.2) mg/dL Total Bilirubin (0.2-1.3) mg/dL AST (17-59) U/L ALT (4-49) U/L Alkaline Phosphatase (38-126) U/L Ammonia (<30) umol/L Troponin I <0.012 (0.000-0.034) ng/mL Total Protein (6.3-8.2) g/dL Albumin (3.5-5.0) g/dL Urine Color Urine Appearance (Clear) Urine pH (5.0-8.0) Ur Specific Moon (1.001-1.035) Urine Protein (Negative) Urine Glucose (UA) (Negative) Urine Ketones (Negative) Urine Blood (Negative) Urine Nitrite (Negative) Urine Bilirubin (Negative) Urine Urobilinogen (<2.0) mg/dL Ur Leukocyte Esterase (Negative) Urine RBC (0-5) /hpf Urine WBC (0-5) /hpf Ur Squamous Epith Cells (0-4) /hpf Urine Mucus (None) /hpf Urine Opiates Screen (NotDetected) Ur Oxycodone Screen (NotDetected) Urine Methadone Screen (NotDetected) Ur Propoxyphene Screen (NotDetected) Ur Barbiturates Screen (NotDetected) U Tricyclic Antidepress (NotDetected) Ur Phencyclidine Scrn (NotDetected) Ur Amphetamines Screen (NotDetected) U Methamphetamines Scrn (NotDetected) U Benzodiazepines Scrn (NotDetected) Urine Cocaine Screen (NotDetected) U Marijuana (THC) Screen (NotDetected) Serum Alcohol mg/dL Disposition Clinical Impression: Altered mental status, Seizure Disposition: ADMITTED IP TO THIS [facility] Condition: Stable Is patient prescribed a controlled substance at d/c from ED?: No Referrals: Volodymyr Franz MD [Primary Care Provider] - 1-2 days Time of Disposition: 14:56
[2022-01-20] MEDS ORDERED: levETIRAcetam IV 1,000 MG in SALINE 1 100ML.BAG IVPB STA (14:41)
[2022-01-20] MEDS ORDERED: ACETAMINOPHEN TAB 325 MG TAB PO PRN (14:42)
[2022-01-20] MEDS ORDERED: NALOXONE 0.4 MG/ML 1 ML VIAL IV PRN (14:42)
[2022-01-20] MEDS: SODIUM CHLORIDE 0.9% 1,000 ML IV SCH (15:10)
[2022-01-20] MEDS ORDERED: oxyCODONE-APAP 10-325MG 1 EACH TAB PO ONE (15:13)
--- NOTE | 2022-01-20 17:58 | P.HPIM ---
History of Present Illness H&P Date: 01/20/22 Chief Complaint: AMS 71-year-old male who presents with altered level consciousness, agitation. Patient had been found by family members after falling off the couch. He was previously sleeping on the couch paramedics were called. According to the daughter the patient had abnormal respirations. He was agitated and required Versed by paramedics. There was no witnessed seizure activity. The patient had no preceding illness or complaint. Upon arrival he is unable to give a history. He appears to be moving all things symmetrically. There is no external signs of head trauma. blood work completed in ED to be used WBC of 13, hemoglobin of 17.1, sodium 139, potassium 3.7, BUN/creatinine of 14/0.9, blood glucose of [address] is negative for intracranial hemorrhage or mass effect, relatively normal laboratory testing. Patient given Keppra in the emergency department. He will be admitted with seizure precautions, monitored on telemetry. Review of Systems REVIEW OF SYSTEMS: CONSTITUTIONAL: No fever, no malaise, no fatigue. HEENT: No recent visual problems or hearing problems. Denied any sore throat. CARDIOVASCULAR: No chest pain, orthopnea, PND, no palpitations, no syncope. PULMONARY: No shortness of breath, no cough, no hemoptysis. GASTROINTESTINAL: No diarrhea, no nausea, no vomiting, no abdominal pain. NEUROLOGICAL: No headaches, no weakness, no numbness. HEMATOLOGICAL: Denies any bleeding or petechiae. GENITOURINARY: Denies any burning micturition, frequency, or urgency. MUSCULOSKELETAL/RHEUMATOLOGICAL: Denies any joint pain, swelling, or any muscle pain. ENDOCRINE: Denies any polyuria or polydipsia. The rest of the 14-point review of systems is negative. Past Medical History Past Medical History: GERD/Reflux, Hypertension, Liver Disease Additional Past Medical History / Comment(s): hip pain, History of Any Multi-Drug Resistant Organisms: None Reported Past Surgical History: Cholecystectomy Additional Past Surgical History / Comment(s): right hip, shoulder, elbows Past Psychological History: No Psychological Hx Reported Past Alcohol Use History: None Reported Past Drug Use History: Marijuana Medications and Allergies Home Medications Medication Instructions Recorded Confirmed Type amLODIPine BESYLATE/BENAZEPRIL 1 cap PO DAILY 06/07/16 01/20/22 History [Lotrel 10-40 mg Capsule] oxyCODONE-APAP 10-325MG [Percocet 1 tab PO QID 01/20/22 01/20/22 History 10-325 mg] Allergies Allergy/AdvReac Type Severity Reaction Status Date / Time chloramphenicol Allergy Confusion Verified 01/20/22 14:40 [From Chloromycetin] chloramphenicol sod succ Allergy Confusion Verified 01/20/22 14:40 [From Chloromycetin] Penicillins Allergy Unknown Verified 01/20/22 14:40 Childhood quinine Allergy Unknown Verified 01/20/22 14:40 Childhood Physical Exam Vitals: Vital Signs Temp Pulse Resp BP Pulse Ox 01/20/22 12:25 98.2 F 87 18 132/81 100 Intake and Output 01/20/22 01/20/22 01/20/22 06:59 14:59 22:59 Other: Weight 99.79 kg General appearance: alert, in distress Head exam: Present: atraumatic, normocephalic Eye exam: Present: normal appearance, PERRL ENT exam: Present: mucous membranes dry Neck exam: Present: normal inspection. Absent: tenderness, meningismus Respiratory exam: Present: normal lung sounds bilaterally. Absent: respiratory distress, wheezes Cardiovascular Exam: Present: regular rate, normal rhythm GI/Abdominal exam: Present: soft. Absent: distended, tenderness, guarding Extremities exam: Present: normal capillary refill Neurological exam: Present: alert. Absent: oriented X3, motor sensory deficit Skin exam: Present: warm, dry, intact. Absent: cyanosis, diaphoretic Results CBC & Chem 7: 01/20/22 12:52 01/20/22 12:52 Labs: Abnormal Lab Results - Last 24 Hours (Table) 01/20/22 01/20/22 01/20/22 Range/Units 12:44 12:49 12:52 WBC 13.0 H (3.8-10.6) k/uL Neutrophils # 10.2 H (1.3-7.7) k/uL APTT (22.0-30.0) sec Carbon Dioxide (22-30) mmol/L Glucose (74-99) mg/dL POC Glucose (mg/dL) 142 H (70-110) mg/dL Urine Protein 1+ H (Negative) Urine Ketones 1+ H (Negative) Urine Blood Small H (Negative) Urine Mucus Rare H (None) /hpf Ur Oxycodone Screen Detected H (NotDetected) U Marijuana (THC) Screen Detected H (NotDetected) 01/20/22 01/20/22 Range/Units 12:52 12:52 WBC (3.8-10.6) k/uL Neutrophils # (1.3-7.7) k/uL APTT 21.3 L (22.0-30.0) sec Carbon Dioxide 21 L (22-30) mmol/L Glucose 152 H (74-99) mg/dL POC Glucose (mg/dL) (70-110) mg/dL Urine Protein (Negative) Urine Ketones (Negative) Urine Blood (Negative) Urine Mucus (None) /hpf Ur Oxycodone Screen (NotDetected) U Marijuana (THC) Screen (NotDetected) Assessment and Plan Assessment: 1. New onset seizures - Continue with Keppra 500 mg twice a day; patient will be placed on seizure precautions - Monitor electrolytes closely and supplement as needed - Consult neurology for further evaluation 2. Substance abuse; urine drug screen is positive for marijuana; counseling done 3. Leukocytosis; no signs of infection; likely reactive DVT prophylaxis; SCDs CODE STATUS; full code
[2022-01-20] MEDS: oxyCODONE-APAP 10-325MG 1 EACH TAB PO SCH ×2 (18:28→23:10)
[2022-01-21] MEDS ORDERED: MAG HYDROX/AL HYDROX/SIMETH 30 ML CUP PO PRN (03:22)
[2022-01-21 09:00] LABS: Glucose,Whole Blood 114 mg/dL (70-110)
[2022-01-21 09:19] LABS: African American GFR (CKD) 88.6 (60.0-200.0); Anion Gap 11.9 mmol/L (10.00-18.00); BUN/Creat Ratio 11.9 Ratio (12.00-20.00); Blood Urea Nitrogen 11.9 mg/dL (9.0-27.0); Calcium 8.8 mg/dL (8.7-10.3); Carbon Dioxide 23.1 mmol/L (20.0-27.5); Non-African American GFR(CKD) 76.5 (60.0-200.0); Potassium 3.7 mmol/L (3.5-5.5)
[2022-01-21] MEDS: amLODIPine 10 MG TAB PO SCH (09:29)
[2022-01-21] MEDS: lisinopriL 20 MG TAB PO SCH (09:29)
[2022-01-21] MEDS: oxyCODONE-APAP 10-325MG 1 EACH TAB PO SCH ×3 (09:31→17:38)
[2022-01-21 09:35] LABS: Basophils # (A) 0.03 X 10*3/uL (0.00-0.10); Basophils % (A) 0.3 %; Eosinophils # (A) 0.06 X 10*3/uL (0.04-0.35); Eosinophils % (A) 0.7 %; HCT 47.3 % (39.6-50.0); HGB 15.9 g/dL (13.0-17.0); Immature Grans, Automated 0.3 %; Lymphocytes # (A) 2.16 X 10*3/uL (0.90-5.00); Lymphocytes % (A) 23.5 %; MCH 31.4 pg (27.0-32.0); MCHC 33.6 g/dL (32.0-37.0); MCV 93.3 fL (80.0-97.0); Mean Platelet Volume 10.2 fL (9.5-12.2); Monocytes # (A) 1.06 X 10*3/uL (0.20-1.00); Monocytes % (A) 11.5 %; NRBC Per 100 WBC 0 /100 WBCS (0.0-0.0); Neutrophils # (A) 5.86 X 10*3/uL (1.80-7.70); Neutrophils % (A) 63.7 %; Platelet Count 153 X 10*3/uL (140-440); RBC 5.07 X 10*6/uL (4.40-5.60); RDW 12.1 % (11.5-14.5)
[2022-01-21] MEDS ORDERED: FAMOTIDINE 20 MG TAB PO SCH (09:45)
[2022-01-21] MEDS: SODIUM CHLORIDE 0.9% 1,000 ML IV SCH ×2 (10:54→18:54)
[2022-01-21] MEDS ORDERED: ONDANSETRON 4 MG in SODIUM CHLORIDE 0.9% 50 ML IVPB PRN (11:43)
[2022-01-21] MEDS: ONDANSETRON 4 MG/2 ML VIAL IVP PRN ×2 (12:32→17:59)
--- NOTE | 2022-01-21 13:39 | P.CNNES ---
History of Present Illness Consult date: 01/21/22 Requesting physician: Orlando Paulino Reason for Consult: Altered mental status, suspect new onset seizures History of Present Illness: Patient is a 71-year-old male came to the hospital by ambulance yesterday at 12: 22 PM for new onset seizures. EMS flow sheet not available in the chart. Per patient report, he suffered from Covid infection about 3 weeks ago. He has been feeling very exhausted, no energy even to walk around the house since then. Otherwise he had been feeling fine. Patient states that yesterday in the evening he was laying in the couch in usual state of health and the next thing he woke up in the hospital. He does not remember anything what happened in the house, or EMS ride or even his stay in the ER. He woke up in the floor in his bed. Patient apparently bit his tongue with this event, but no loss of control of urine. Per patient's report, patient's daughter found him on the floor in the family room, laying next to the couch and coffee table. He was breathing really abnormal, thrashing, his eyes were open, but staring off in space. He was quite agitated, thrashing, pulling clothes. He was not making sense. Patient's called EMS. When they arrived, he was still very agitated, throwing up blood, not making sense. 4 people had to hold him down. His mentation improved while he was being transported in the ambulance and when he arrived to the hospital. However patient does not remember ride to the hospital. Vitals in the arrival blood pressure 132/81 pulse rate 87, temperature 98.2. Blood test shows WBC 13.0 M 100.1, platelets 186. PT/PTT normal, lateral right side normal, renal functions normal, hepatic panel normal, ammonia negative, troponins negative. UA is negative. Urine drug screen positive for oxycodone and marijuana. Blood alcohol level negative. CT head showed no acute intracranial abnormality seen. Mild patchy burden of chronic small vessel ischemic disease. I personally reviewed CT head, agree with the findings CT of the cervical spine showed moderate multilevel spondylotic change. No acute fracture or malalignment of the cervical spine. Chest x-ray showed mild cardiomegaly. Chronic appearing changes. Pelvic x-ray revealed osteopenia. Previous internal fixation of fracture deformities involving the right hemipelvis. There is post traumatic end-stage [id number] right hip osteoarthritis with bone remodeling. Suspect old healed fracture of the right femoral neck as well. No new displaced fracture clearly identified. EKG shows sinus rhythm. Patient's medications include amlodipine, benazepril, oxycodone 10/325 mg 4 times a day. Patient has smoked 1 pack per day for 15-20 years, quit 30 years ago. He does not drink alcohol. He smoked marijuana a lot when he was younger, but now he smokes pot once in a while. No family history of epilepsy. Patient says that he fell 50 feet suffered from multiple bony injuries on his right wrist and right hip. This happened in 1987. He has 8 bolts in the hip. He denies concussion or loss of consciousness. Denies any history of seizures. Patient states that since this morning he has been feeling very nauseous, sweaty, cold but no fever. He has been vomiting, vomited 2 times in front of me. He denies any headache or any photophobia or phonophobia. He states his neck has been feeling stiff since he suffered from Covid 2-3 weeks ago. Patient denies any numbness tingling focal weakness, visual problems. Patient says that he is fully vaccinated and received 3 doses of moderna. He states his right arm feels stiff due to old injury. Per nurse report, today patient was standing up to urinate in the urinal, when he lost balance, almost fell, but caught himself on the counter. Did not fall. Review of Systems Constitutional: Reports chills, Reports malaise, Reports sweats, Denies fever Eyes: denies blurred vision, denies pain Ears: deny: decreased hearing Ears, nose, mouth and throat: Denies headache, Denies sore throat Cardiovascular: Denies chest pain, Denies shortness of breath Respiratory: Denies cough Gastrointestinal: Reports nausea, Reports vomiting, Denies abdominal pain, Denies diarrhea, Denies hematemesis Musculoskeletal: Reports low back pain, Reports neck stiffness, Denies myalgias Musculoskeletal: right: wrist stiffness Integumentary: Reports rash, Denies pruritus Neurological: Reports as per HPI Psychiatric: Denies anxiety, Denies depression Endocrine: Denies fatigue, Denies weight change Hematologic/Lymphatic: Reports easy bruising Allergic/Immunologic: Denies persistent infections Past Medical History Past Medical History: GERD/Reflux, Hypertension, Liver Disease Additional Past Medical History / Comment(s): hip pain, NECK PAIN , BACK PAIN History of Any Multi-Drug Resistant Organisms: None Reported Past Surgical History: Cholecystectomy Additional Past Surgical History / Comment(s): right hip, shoulder, elbows Past Psychological History: No Psychological Hx Reported Smoking Status: Former smoker Past Alcohol Use History: None Reported Past Drug Use History: Marijuana - Past Family History Mother Family Medical History: COPD Father Family Medical History: Unable to Obtain Medications and Allergies Home Medications Medication Instructions Recorded Confirmed Type amLODIPine BESYLATE/BENAZEPRIL 1 cap PO DAILY 06/07/16 01/20/22 History [Lotrel 10-40 mg Capsule] oxyCODONE-APAP 10-325MG [Percocet 1 tab PO QID 01/20/22 01/20/22 History 10-325 mg] Allergies Allergy/AdvReac Type Severity Reaction Status Date / Time chloramphenicol Allergy Confusion Verified 01/20/22 14:40 [From Chloromycetin] chloramphenicol sod succ Allergy Confusion Verified 01/20/22 14:40 [From Chloromycetin] Penicillins Allergy Unknown Verified 01/20/22 14:40 Childhood quinine Allergy Unknown Verified 01/20/22 14:40 Childhood Physical Examination - Vital Signs Vital Signs: Vital Signs Temp Pulse Pulse Resp BP BP Pulse Ox 01/21/22 04:04 98.4 F 54 L 14 153/74 96 01/20/22 17:57 98 F 60 16 154/71 97 01/20/22 15:26 57 L 18 140/62 99 01/20/22 12:25 98.2 F 87 18 132/81 100 Intake and Output 01/20/22 01/21/22 01/21/22 22:59 06:59 14:59 Intake Total 160 540 Output Total 600 Balance 160 -60 Intake: Oral 160 540 Output: Urine 600 Other: Voiding Method Urinal # Voids 2 Weight 99.79 kg Patient is an elderly male, in no acute distress, although he is frequently feeling nauseous, and vomited twice in front of me. Patient is alert awake oriented to time place and person. Speech and language functions are normal. Patient can name and repeat very well. No aphasia or dysarthria. Attention, concentration and fund of knowledge is adequate. On cranial nerve examination, pupils are equal, round and reacting to light, visual bower are full on confrontation, with no neglect on double simultaneous stimulation. Extraocular muscles are intact with no nystagmus. Face is symmetric, tongue protrudes to the midline. Palatal elevation and sensation normal, hearing and shoulder shrug normal, facial sensation normal. Patient has evidence of tongue bite abdi on both sides. On muscle strength testing, there is no pronator drift and the strength is normal in arms and legs distally and proximally. Deep tendon reflexes are symmetric biceps 1, brachioradialis 1, knees 2, ankles 0 and plantar is up on the right, down left. Sensory to touch is equal with no neglect on double simultaneous stimulation. Cerebellar function showed no ataxia for [id number]-po-nwyv testing. No dysdiadochokinesia. No ataxia for [id number]-hwfg testing on either side. Tone and bulk of muscles normal. Gait deferred.. On general examination, there is no carotid bruit or murmur, S1-S2 audible. Chest is clear on consultation. Abdomen is soft nontender. No organomegaly, bowel sounds present. Peripheral pulses are present. No edema. He has ecchymosis on his forearm and some in the leg. Results - Laboratory Findings CBC and BMP: 01/23/22 04:40 01/22/22 04:43 Abnormal Lab Findings: Abnormal Labs 01/20/22 01/20/22 01/20/22 12:44 12:49 12:52 WBC 13.0 H Neutrophils # 10.2 H APTT Carbon Dioxide BUN/Creatinine Ratio Glucose POC Glucose (mg/dL) 142 H Urine Protein 1+ H Urine Ketones 1+ H Urine Blood Small H Urine Mucus Rare H Ur Oxycodone Screen Detected H U Marijuana (THC) Screen Detected H 01/20/22 01/20/22 01/21/22 12:52 12:52 04:52 WBC Neutrophils # APTT 21.3 L Carbon Dioxide 21 L BUN/Creatinine Ratio 11.90 L Glucose 152 H POC Glucose (mg/dL) Urine Protein Urine Ketones Urine Blood Urine Mucus Ur Oxycodone Screen U Marijuana (THC) Screen 01/21/22 08:58 WBC Neutrophils # APTT Carbon Dioxide BUN/Creatinine Ratio Glucose POC Glucose (mg/dL) 114 H Urine Protein Urine Ketones Urine Blood Urine Mucus Ur Oxycodone Screen U Marijuana (THC) Screen Assessment and Plan Assessment: * New onset seizure, unclear etiology. No obvious provoking factor identified yet. * Nausea vomiting, with coffee-ground emesis, unclear cause. * Recent Covid infection, recovered 3 weeks ago. * Gait imbalance * Marijuana use. * History of fall in 1987 with some musculoskeletal injuries. * X tobacco use Plan: * EEG evaluate for any interictal epileptiform activity * MRI of the brain * Patient loaded with Keppra 1000 mg IV in the ER. We will await EEG. Hold off on maintenance dose for now. * Patient informed of [place] state law of not driving unless seizure free for 6 months, climbing ladders, operating dangerous machinery or unsupervised swimming. * Neurology will follow. Thank you for the consult. Time with Patient: Greater than 30
[2022-01-21 14:39] LABS: Basophils % (A) 0 %; Eosinophils % (A) 0 %; HCT 51.2 % (39.0-53.0); HGB 17.5 gm/dL (13.0-17.5); Lymphocytes # (A) 0.5 k/uL (1.0-4.8); Lymphocytes % (A) 4 %; MCH 32.6 pg (25.0-35.0); MCHC 34.2 g/dL (31.0-37.0); MCV 95.5 fL (80.0-100.0); Mean Platelet Volume 7.5; Monocytes # (A) 0.3 k/uL (0-1.0); Monocytes % (A) 2 %; Neutrophils # (A) 10.7 k/uL (1.3-7.7); Neutrophils % (A) 93 %; Platelet Count 160 k/uL (150-450); RBC 5.37 m/uL (4.30-5.90); RDW 12.7 % (11.5-15.5); WBC 11.5 k/uL (3.8-10.6)
[2022-01-21] MEDS: MORPHINE SULFATE 2 MG/ML SYRINGE IVP PRN (15:00)
--- NOTE | 2022-01-21 15:01 | XR ---
EXAMINATION TYPE: XR KUB portable DATE OF EXAM: 01/21/2022 CLINICAL DATA: 71-year-old male nausea and vomiting, [facility] COMPARISON: 01/20/2022 FINDINGS: Cholecystectomy clips. Supine imaging limited for assessment of free air. A single prominen t air-filled loop of small bowel left mid abdomen measuring 2.7 cm in caliber. There is moderate stoo l in the left side of the colon. No abnormally dilated small bowel is seen. Scattered colonic air is present. No suspicious calcifications seen. Extensive prior internal fixation right hemipelvis and en d-stage posttraumatic right hip OA. IMPRESSION: Nonspecific, nonobstructive bowel gas pattern. Moderate stool burden. End-stage posttraumatic OA righ t hip.
--- NOTE | 2022-01-21 15:35 | P.GSCN ---
History of Present Illness Consult date: 01/21/22 Reason for Consult: Hematemesis History of present illness: Is a 71-year-old male with multiple medical problems. Patient is being worked up for seizure disorder. Patient had hematemesis today. He's had several small vomits which had coffee grounds. His hemoglobin is actually elevated. Past Medical History Past Medical History: GERD/Reflux, Hypertension, Liver Disease Additional Past Medical History / Comment(s): hip pain, NECK PAIN , BACK PAIN History of Any Multi-Drug Resistant Organisms: None Reported Past Surgical History: Cholecystectomy Additional Past Surgical History / Comment(s): right hip, shoulder, elbows Past Psychological History: No Psychological Hx Reported Smoking Status: Former smoker Past Alcohol Use History: None Reported Past Drug Use History: Marijuana - Past Family History Mother Family Medical History: COPD Father Family Medical History: Unable to Obtain Medications and Allergies Home Medications Medication Instructions Recorded Confirmed Type amLODIPine BESYLATE/BENAZEPRIL 1 cap PO DAILY 06/07/16 01/20/22 History [Lotrel 10-40 mg Capsule] oxyCODONE-APAP 10-325MG [Percocet 1 tab PO QID 01/20/22 01/20/22 History 10-325 mg] Allergies Allergy/AdvReac Type Severity Reaction Status Date / Time chloramphenicol Allergy Confusion Verified 01/20/22 14:40 [From Chloromycetin] chloramphenicol sod succ Allergy Confusion Verified 01/20/22 14:40 [From Chloromycetin] Penicillins Allergy Unknown Verified 01/20/22 14:40 Childhood quinine Allergy Unknown Verified 01/20/22 14:40 Childhood Surgical - Exam Vital Signs Temp Pulse Resp BP Pulse Ox 98.2 F 87 18 132/81 100 01/20/22 12:25 01/20/22 12:25 01/20/22 12:25 01/20/22 12:25 01/20/22 12:25 - General well developed, well nourished, no distress - Eyes PERRL - ENT normal pinna - Neck no masses - Respiratory normal expansion - Cardiovascular Rhythm: regular - Abdomen Abdomen: soft, non tender Results - Labs 01/21/22 14:14 01/21/22 04:52 Abnormal Lab Results - Last 24 Hours (Table) 01/21/22 01/21/22 01/21/22 Range/Units 04:52 04:52 08:58 WBC (3.8-10.6) k/uL Neutrophils # (1.3-7.7) k/uL Lymphocytes # (1.0-4.8) k/uL Monocytes # 1.06 H (0.20-1.00) X 10*3/uL BUN/Creatinine Ratio 11.90 L (12.00-20.00) Ratio POC Glucose (mg/dL) 114 H (70-110) mg/dL 01/21/22 Range/Units 14:14 WBC 11.5 H (3.8-10.6) k/uL Neutrophils # 10.7 H (1.3-7.7) k/uL Lymphocytes # 0.5 L (1.0-4.8) k/uL Monocytes # (0.20-1.00) X 10*3/uL BUN/Creatinine Ratio (12.00-20.00) Ratio POC Glucose (mg/dL) (70-110) mg/dL Diabetes panel 01/21/22 Range/Units 04:52 Sodium 140 (135-145) mmol/L Potassium 3.7 (3.5-5.5) mmol/L Chloride 105 (96-109) mmol/L Carbon Dioxide 23.1 (20.0-27.5) mmol/L BUN 11.9 (9.0-27.0) mg/dL Creatinine 1.0 (0.6-1.5) mg/dL Glucose 100 (70-110) mg/dL Calcium 8.8 (8.7-10.3) mg/dL Calcium panel 01/21/22 Range/Units 04:52 Calcium 8.8 (8.7-10.3) mg/dL Pituitary panel 01/21/22 Range/Units 04:52 Sodium 140 (135-145) mmol/L Potassium 3.7 (3.5-5.5) mmol/L Chloride 105 (96-109) mmol/L Carbon Dioxide 23.1 (20.0-27.5) mmol/L BUN 11.9 (9.0-27.0) mg/dL Creatinine 1.0 (0.6-1.5) mg/dL Glucose 100 (70-110) mg/dL Calcium 8.8 (8.7-10.3) mg/dL Adrenal panel 01/21/22 Range/Units 04:52 Sodium 140 (135-145) mmol/L Potassium 3.7 (3.5-5.5) mmol/L Chloride 105 (96-109) mmol/L Carbon Dioxide 23.1 (20.0-27.5) mmol/L BUN 11.9 (9.0-27.0) mg/dL Creatinine 1.0 (0.6-1.5) mg/dL Glucose 100 (70-110) mg/dL Calcium 8.8 (8.7-10.3) mg/dL Assessment and Plan Assessment: Hematemesis with possible coffee-ground emesis. Patient will be scheduled for EGD tomorrow.
[2022-01-21] MEDS ORDERED: ACETAMINOPHEN TAB 325 MG TAB PO PRN (20:26)
--- NOTE | 2022-01-21 20:32 | P.PN ---
Subjective 71-year-old male who presents with altered level consciousness, agitation. Patient had been found by family members after falling off the couch. He was previously sleeping on the couch paramedics were called. According to the daughter the patient had abnormal respirations. He was agitated and required Versed by paramedics. There was no witnessed seizure activity. The patient had no preceding illness or complaint. Upon arrival he is unable to give a history. He appears to be moving all things symmetrically. There is no external signs of head trauma. blood work completed in ED to be used WBC of 13, hemoglobin of 17.1, sodium 139, potassium 3.7, BUN/creatinine of 14/0.9, blood glucose of [address] is negative for intracranial hemorrhage or mass effect, relatively normal laboratory testing. Patient given Keppra in the emergency department. He will be admitted with seizure precautions, monitored on telemetry. Review of Systems 01/21/2022 this is a pleasant 71 years old male with multiple medical problems presents because he was found on the ground and he received Versed by EMS because he was combative. He was admitted with suspected seizure. Today patient is more awake alert and oriented, he knows he is in [facility], the date and the name of the president. It looks like her mentation has improved, neurologist however recommended EEG and MRI of the brain which is pending. Today he was developing hematemesis, hemoglobin stable at 15, repeat hemoglobin 17.5. Vitals are stable. 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 Patient placed on Protonix with plan for EGD tomorrow We will add metoprolol for better blood pressure control Objective - Vital Signs Vital signs: Vital Signs Temp 99.3 F 01/21/22 17:35 Pulse 58 L 01/21/22 11:44 Resp 17 01/21/22 11:44 BP 175/80 01/21/22 11:44 Pulse Ox 97 01/21/22 11:44 FiO2 Intake & Output 01/21/22 01/21/22 01/22/22 06:59 18:59 06:59 Intake Total 540 Output Total 600 4 Balance -60 -4 Intake: Oral 540 Output: Urine 600 Emesis 4 Other: Voiding Method Urinal # Voids 6 # Bowel Movements 2 - Exam GENERAL: The patient is alert and oriented x3, not in any acute distress. Well developed, well nourished. HEENT: Pupils are round and equally reacting to light. EOMI. No scleral icterus. No conjunctival pallor. Normocephalic, atraumatic. No pharyngeal erythema. No thyromegaly. CARDIOVASCULAR: S1 and S2 present. No murmurs, rubs, or gallops. PULMONARY: Chest is clear to auscultation, no wheezing or crackles. ABDOMEN: Soft, nontender, nondistended, normoactive bowel sounds. No palpable organomegaly. MUSCULOSKELETAL: No joint swelling or deformity. EXTREMITIES: No cyanosis, clubbing, or pedal edema. NEUROLOGICAL: Gross neurological examination did not reveal any focal deficits. SKIN: No rashes. no petechiae. - Labs CBC & Chem 7: 01/21/22 14:14 01/21/22 04:52 Labs: Abnormal Lab Results - Last 24 Hours (Table) 01/21/22 01/21/22 01/21/22 Range/Units 04:52 04:52 08:58 WBC (3.8-10.6) k/uL Neutrophils # (1.3-7.7) k/uL Lymphocytes # (1.0-4.8) k/uL Monocytes # 1.06 H (0.20-1.00) X 10*3/uL BUN/Creatinine Ratio 11.90 L (12.00-20.00) Ratio POC Glucose (mg/dL) 114 H (70-110) mg/dL 01/21/22 Range/Units 14:14 WBC 11.5 H (3.8-10.6) k/uL Neutrophils # 10.7 H (1.3-7.7) k/uL Lymphocytes # 0.5 L (1.0-4.8) k/uL Monocytes # (0.20-1.00) X 10*3/uL BUN/Creatinine Ratio (12.00-20.00) Ratio POC Glucose (mg/dL) (70-110) mg/dL Assessment and Plan Assessment: 1. Altered mental status, present on admission. Most likely metabolic/structures encephalopathy. Ruled out intracranial lesion. Currently improved and patient back close to baseline - Neurology consult recommended EEG and MRI. - Hold on Keppra till EEG results - we recommend to limit the amount of narcotics,MAPS was checked he is on Percocet 10-to 320 5M every 6 hours, this is a to 7.5 mg, IV morphine when necessary when nothing by mouth 2. Hematemesis, with recurrent nausea vomiting, surgery team consult with plan for EGD tomorrow 3. Substance abuse; urine drug screen is positive for marijuana; counseling done 3. Leukocytosis; no signs of infection; likely reactive DVT prophylaxis; SCDs, No heparin because of possible hematemesis CODE STATUS; full code
[2022-01-21] MEDS: oxyCODONE-APAP 7.5-325MG 1 EACH TAB PO PRN (21:27)
[2022-01-22] MEDS: ONDANSETRON 4 MG/2 ML VIAL IVP PRN ×2 (01:57→23:34)
[2022-01-22] MEDS: MORPHINE SULFATE 2 MG/ML SYRINGE IVP PRN ×2 (01:58→23:34)
[2022-01-22] MEDS: PANTOPRAZOLE 40 MG/10 ML VIAL IVP SCH (08:19)
[2022-01-22] MEDS: amLODIPine 10 MG TAB PO SCH (08:20)
[2022-01-22] MEDS: lisinopriL 20 MG TAB PO SCH (08:21)
[2022-01-22] MEDS: SODIUM CHLORIDE 0.9% 1,000 ML IV SCH ×2 (08:22→20:15)
[2022-01-22] MEDS: oxyCODONE-APAP 7.5-325MG 1 EACH TAB PO PRN ×2 (08:33→18:44)
[2022-01-22 09:19] LABS: Basophils # (A) 0.02 X 10*3/uL (0.00-0.10); Basophils % (A) 0.2 %; Eosinophils # (A) 0 X 10*3/uL (0.04-0.35); Eosinophils % (A) 0 %; HGB 16.9 g/dL (13.0-17.0); Immature Grans, Automated 0.3 %; Lymphocytes # (A) 1.05 X 10*3/uL (0.90-5.00); Lymphocytes % (A) 8.1 %; MCH 31.5 pg (27.0-32.0); MCHC 33.8 g/dL (32.0-37.0); MCV 93.1 fL (80.0-97.0); Mean Platelet Volume 9.8 fL (9.5-12.2); Monocytes # (A) 0.99 X 10*3/uL (0.20-1.00); Monocytes % (A) 7.6 %; NRBC Per 100 WBC 0 /100 WBCS (0.0-0.0); Neutrophils # (A) 10.92 X 10*3/uL (1.80-7.70); Neutrophils % (A) 83.8 %; Platelet Count 163 X 10*3/uL (140-440); RBC 5.37 X 10*6/uL (4.40-5.60); RDW 12.2 % (11.5-14.5); WBC 13.02 X 10*3/uL (4.50-10.00)
[2022-01-22 09:31] LABS: African American GFR (CKD) 88.6 (60.0-200.0); Anion Gap 12.9 mmol/L (10.00-18.00); BUN/Creat Ratio 16.3 Ratio (12.00-20.00); Blood Urea Nitrogen 16.3 mg/dL (9.0-27.0); Calcium 9.2 mg/dL (8.7-10.3); Carbon Dioxide 26.1 mmol/L (20.0-27.5); Magnesium 2.1 mg/dL (1.5-2.4); Non-African American GFR(CKD) 76.5 (60.0-200.0)
[2022-01-22] MEDS ORDERED: PROPOFOL 10 MG/ML 20 ML VIAL IV ONE (12:40)
[2022-01-22] MEDS ORDERED: LIDOCAINE 2% INJ 20 MG/ML (2 ML VIAL) ONE (12:40)
[2022-01-22] MEDS ORDERED: IV FLUID CONTINUATION 1,000 ML IV ONE (12:49)
--- NOTE | 2022-01-22 12:50 | P.OP ---
Date of Procedure: 01/22/22 Preoperative Diagnosis: Gastritis Postoperative Diagnosis: Antral gastritis Moderate size hiatal hernia Mild esophagitis Procedure(s) Performed: EGD Anesthesia: MAC Surgeon: Layo English Pathology: other (Antrum, esophagus) Condition: stable Disposition: PACU Description of Procedure: The patient's placed on the endoscopy table in the lateral position. He received IV sedation. The gastroscope placed oropharynx passed in the esophagus and stomach. Scope was then placed through the pylorus. The first and second portion of the duodenum appeared normal. Scope was then brought back the antrum this was inflamed. Biopsies performed. Scope was then retroflexed and remainder the stomach appeared normal. There was a moderate size hiatal hernia. The GE junction was at 37 cm. The distal esophagus appeared mildly inflamed. Biopsies performed. The proximal esophagus appeared normal. Scope withdrawn for patient.
--- NOTE | 2022-01-22 13:58 | P.PN ---
Subjective Progress Note Date: 01/22/22 Patient was seen for a follow-up. Patient states that he has no nausea or vomiting. He just woke up. He feels much better. Denies any headache. No double vision. Objective - Vital Signs Vital signs: Vital Signs Temp 98.4 F 01/22/22 04:23 Pulse 65 01/22/22 08:25 Resp 16 01/22/22 08:37 BP 192/85 01/22/22 08:25 Pulse Ox 97 01/22/22 04:23 FiO2 Intake & Output 01/21/22 01/22/22 01/22/22 18:59 06:59 18:59 Output Total 4 100 Balance -4 -100 Output: Urine 100 Emesis 4 Other: Voiding Method Urinal Toilet Urinal # Voids 6 # Bowel Movements 2 - Exam Patient's mental status, speech and language functions are normal. Cranial nerves are normal. Muscle strength is normal. No ataxia. - Labs CBC & Chem 7: 01/22/22 04:43 01/22/22 04:43 Labs: Abnormal Lab Results - Last 24 Hours (Table) 01/21/22 01/22/22 01/22/22 Range/Units 14:14 04:43 04:43 WBC 11.5 H 13.02 H (3.8-10.6) k/uL Neutrophils # 10.7 H 10.92 H (1.3-7.7) k/uL Lymphocytes # 0.5 L (1.0-4.8) k/uL Eosinophils # 0 L (0.04-0.35) X 10*3/uL Glucose 129 H (70-110) mg/dL Assessment and Plan Assessment: * New onset seizure, unclear etiology. No obvious provoking factor identified yet. * Nausea vomiting, with coffee-ground emesis, unclear cause. * Gait imbalance * Marijuana use. * X tobacco use Plan: * Await EEG evaluate for any interictal epileptiform activity * Await MRI of the brain * Patient undergoing EGD today for hematemesis, nausea vomiting. * Patient loaded with Keppra 1000 mg IV in the ER. We will await EEG, before starting maintenance treatment, if indicated. * Patient informed of [place] state law of not driving unless seizure free for 6 months, climbing ladders, operating dangerous machinery or unsupervised swimming. * Neurology will follow.
--- NOTE | 2022-01-22 14:56 | MR ---
EXAMINATION TYPE: MR brain wo/w con DATE OF EXAM: 01/22/2022 COMPARISON: CT brain 01/20/2022 HISTORY: Seizure TECHNIQUE: Multiplanar, multisequence images of the brain and brainstem is performed without and with IV contras t, utilizing 10 mL intravenous Gadavist . FINDINGS: Diffusion weighted images demonstrate no evidence of a recent infarct or other diffusion ab normality. There is no extra-axial fluid collection . Scattered deep white matter changes with high T2 signal foci scattered throughout the deep white matter. The ventricular system and cisternal space s are normal in size and appearance. The brain volume is age appropriate. Midline structures demonstrate normal morphology. The craniocervical junction appears within normal limits. Post contrast images demonstrate no abnormal enhancement. The dural venous sinuses appear pa tent. The visualized sinuses are clear and the globes are intact. There is a small right mastoid air cell effusion. IMPRESSION: 1. No evidence of intracranial mass or acute/subacute infarct no abnormal postcontrast enhancement. 2. Nonspecific white matter changes, likely secondary to small vessel ischemic disease.
--- NOTE | 2022-01-22 19:04 | P.PN ---
Subjective 71-year-old male who presents with altered level consciousness, agitation. Patient had been found by family members after falling off the couch. He was previously sleeping on the couch paramedics were called. According to the daughter the patient had abnormal respirations. He was agitated and required Versed by paramedics. There was no witnessed seizure activity. The patient had no preceding illness or complaint. Upon arrival he is unable to give a history. He appears to be moving all things symmetrically. There is no external signs of head trauma. blood work completed in ED to be used WBC of 13, hemoglobin of 17.1, sodium 139, potassium 3.7, BUN/creatinine of 14/0.9, blood glucose of [address] is negative for intracranial hemorrhage or mass effect, relatively normal laboratory testing. Patient given Keppra in the emergency department. He will be admitted with seizure precautions, monitored on telemetry. Review of Systems 01/21/2022 this is a pleasant 71 years old male with multiple medical problems presents because he was found on the ground and he received Versed by EMS because he was combative. He was admitted with suspected seizure. Today patient is more awake alert and oriented, he knows he is in [facility], the date and the name of the president. It looks like her mentation has improved, neurologist however recommended EEG and MRI of the brain which is pending. Today he was developing hematemesis, hemoglobin stable at 15, repeat hemoglobin 17.5. Vitals are stable. 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 Patient placed on Protonix with plan for EGD tomorrow We will add metoprolol for better blood pressure control 01/22/2022 Patient underwent EGD today: moderate size hiatal hernia. The GE junction was at 37 cm. The distal esophagus appeared mildly inflamed Patient is still nothing by mouth, we will keep monitoring. A biter and hemoglobin. Hemoglobin still normal His altered mental status improved and today he is oriented to time place and person. he follows all commands. EEG and MRI of the brain are pending Objective - Vital Signs Vital signs: Vital Signs Temp 98.4 F 01/22/22 04:23 Pulse 65 01/22/22 08:25 Resp 16 01/22/22 08:37 BP 192/85 01/22/22 08:25 Pulse Ox 97 01/22/22 04:23 FiO2 Intake & Output 01/21/22 01/22/22 01/22/22 18:59 06:59 18:59 Output Total 4 100 Balance -4 -100 Output: Urine 100 Emesis 4 Other: Voiding Method Urinal Toilet Urinal # Voids 6 # Bowel Movements 2 - Exam GENERAL: The patient is alert and oriented x3, not in any acute distress. Well developed, well nourished. HEENT: Pupils are round and equally reacting to light. EOMI. No scleral icterus. No conjunctival pallor. Normocephalic, atraumatic. No pharyngeal erythema. No thyromegaly. CARDIOVASCULAR: S1 and S2 present. No murmurs, rubs, or gallops. PULMONARY: Chest is clear to auscultation, no wheezing or crackles. ABDOMEN: Soft, nontender, nondistended, normoactive bowel sounds. No palpable organomegaly. MUSCULOSKELETAL: No joint swelling or deformity. EXTREMITIES: No cyanosis, clubbing, or pedal edema. NEUROLOGICAL: Gross neurological examination did not reveal any focal deficits. SKIN: No rashes. no petechiae. - Labs CBC & Chem 7: 01/22/22 04:43 01/22/22 04:43 Labs: Abnormal Lab Results - Last 24 Hours (Table) 01/21/22 01/22/22 01/22/22 Range/Units 14:14 04:43 04:43 WBC 11.5 H 13.02 H (3.8-10.6) k/uL Neutrophils # 10.7 H 10.92 H (1.3-7.7) k/uL Lymphocytes # 0.5 L (1.0-4.8) k/uL Eosinophils # 0 L (0.04-0.35) X 10*3/uL Glucose 129 H (70-110) mg/dL Assessment and Plan Assessment: 1. Altered mental status, present on admission. Most likely metabolic/structures encephalopathy. Ruled out intracranial lesion. Currently improved and patient back close to baseline - Neurology consult recommended EEG and MRI. - Hold on Keppra till EEG results - we recommend to limit the amount of narcotics,MAPS was checked he is on Percocet 10-to 320 5M every 6 hours, this is a to 7.5 mg, IV morphine when necessary when nothing by mouth 2. Hematemesis, with recurrent nausea vomiting, surgery team consult with plan for EGD: Moderate hiatal hernia and mild esophagitis in the distal esophagus. Improved 3. Substance abuse; urine drug screen is positive for marijuana; counseling done 3. Leukocytosis; no signs of infection; likely reactive DVT prophylaxis; SCDs, No heparin because of possible hematemesis CODE STATUS; full code
[2022-01-23] MEDS: oxyCODONE-APAP 7.5-325MG 1 EACH TAB PO PRN ×4 (02:04→22:28)
--- NOTE | 2022-01-23 03:32 | EEG ---
ELECTROENCEPHALOGRAM REPORT PREAMBLE: This is a 71-year-old male with new onset seizure. This study is performed to evaluate for any epileptiform activity. EEG FINDINGS: This is a 21-channel digital EEG recorded with video component, utilizing 10/20 international system with referential and bipolar montages. Background consists of well developed, well regulated moderate voltage activity in 10 hertz alpha. Background is posterior dominant and is reactive to eye opening and closing. Photic driving response was not clearly seen. Hyperventilation was not performed. Drowsiness was seen with appearance of bilaterally symmetric theta frequency rhythm. Deeper stages of sleep were not attained. Some left anterior and temporal dysrhythmic activity was seen intermittently with some sharp appearing waves, which did not appear clearly epileptiform. EKG channel showed no obvious arrhythmia. IMPRESSION: This is probably a normal awake and drowsy EEG. No definitive focal or generalized epileptiform activity was seen. I recommend prolonged EEG for further evaluation of any interictal epileptiform activity. MMJULIA / CLAUDETTEN: [id number] / [facility] CENTERJackie
[2022-01-23 05:08] LABS: Appearance,Urine Clear (Clear); Bilirubin,Urine Negative (Negative); Blood,Urine Trace (Negative); Color,Urine Yellow; Glucose,Urine (UA) Negative (Negative); Ketones,Urine 2+ (Negative); Leukocyte Esterase,Urine Negative (Negative); Mucus,Urine Occasional /hpf; Nitrite,Urine Negative (Negative); Protein,Urine Trace (Negative); RBC,Urine 1 /hpf (0-5); WBC,Urine 1 /hpf (0-5)
[2022-01-23] MEDS: PANTOPRAZOLE 40 MG/10 ML VIAL IVP SCH (07:54)
[2022-01-23] MEDS: amLODIPine 10 MG TAB PO SCH (07:55)
[2022-01-23] MEDS: lisinopriL 20 MG TAB PO SCH (07:55)
[2022-01-23 09:07] LABS: Basophils # (A) 0.01 X 10*3/uL (0.00-0.10); Basophils % (A) 0.1 %; Eosinophils # (A) 0 X 10*3/uL (0.04-0.35); Eosinophils % (A) 0 %; HCT 44.6 % (39.6-50.0); HGB 14.8 g/dL (13.0-17.0); Immature Grans, Automated 0.6 %; Lymphocytes # (A) 1.29 X 10*3/uL (0.90-5.00); Lymphocytes % (A) 9.6 %; MCH 31.4 pg (27.0-32.0); MCHC 33.2 g/dL (32.0-37.0); MCV 94.7 fL (80.0-97.0); Mean Platelet Volume 10.1 fL (9.5-12.2); Monocytes # (A) 0.91 X 10*3/uL (0.20-1.00); Monocytes % (A) 6.8 %; NRBC Per 100 WBC 0 /100 WBCS (0.0-0.0); Neutrophils # (A) 11.17 X 10*3/uL (1.80-7.70); Neutrophils % (A) 82.9 %; Platelet Count 147 X 10*3/uL (140-440); RBC 4.71 X 10*6/uL (4.40-5.60); RDW 12.1 % (11.5-14.5); WBC 13.46 X 10*3/uL (4.50-10.00)
--- NOTE | 2022-01-23 10:17 | XR ---
EXAMINATION TYPE: XR chest 1V DATE OF EXAM: 01/23/2022 HISTORY: Shortness of breath. COMPARISON: 01/20/2022 TECHNIQUE: Single view of the chest is submitted. FINDINGS: Demonstrated are scattered senescent parenchymal change. There is no evidence for focal infiltrate. The heart is stable. Hilar and mediastinal structures are within normal limits. Degenerative changes are seen of the dorsal spine. IMPRESSION: 1. Chronic changes without evidence for acute pulmonary disease.
--- NOTE | 2022-01-23 11:50 | P.PN ---
Subjective 71-year-old male who presents with altered level consciousness, agitation. Patient had been found by family members after falling off the couch. He was previously sleeping on the couch paramedics were called. According to the daughter the patient had abnormal respirations. He was agitated and required Versed by paramedics. There was no witnessed seizure activity. The patient had no preceding illness or complaint. Upon arrival he is unable to give a history. He appears to be moving all things symmetrically. There is no external signs of head trauma. blood work completed in ED to be used WBC of 13, hemoglobin of 17.1, sodium 139, potassium 3.7, BUN/creatinine of 14/0.9, blood glucose of [address] is negative for intracranial hemorrhage or mass effect, relatively normal laboratory testing. Patient given Keppra in the emergency department. He will be admitted with seizure precautions, monitored on telemetry. Review of Systems 01/21/2022 this is a pleasant 71 years old male with multiple medical problems presents because he was found on the ground and he received Versed by EMS because he was combative. He was admitted with suspected seizure. Today patient is more awake alert and oriented, he knows he is in [facility], the date and the name of the president. It looks like her mentation has improved, neurologist however recommended EEG and MRI of the brain which is pending. Today he was developing hematemesis, hemoglobin stable at 15, repeat hemoglobin 17.5. Vitals are stable. 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 Patient placed on Protonix with plan for EGD tomorrow We will add metoprolol for better blood pressure control 01/22/2022 Patient underwent EGD today: moderate size hiatal hernia. The GE junction was at 37 cm. The distal esophagus appeared mildly inflamed Patient is still nothing by mouth, we will keep monitoring. A biter and hemoglobin. Hemoglobin still normal His altered mental status improved and today he is oriented to time place and person. he follows all commands. EEG and MRI of the brain are pending 01/23/2022 Patient mentation still improved, looks his stable. Patient awakened oriented 3, he has insight and follow commands. He denies confusion or hallucinations. MRI of the brain showing no acute process. EKG is negative for epileptiform discharge, prolonged EEG is recommended which could be done as an outpatient. Neurologist on the case Recommend to hold on seizure medication for now. Patient had EGD was showing moderate hiatal hernia and mild distal esophagitis. Patient remains on Protonix, no more vomiting or hematemesis. Patient did not start Diet yet, encourage patient to eat patient says that he wasn't eating because he has some left lung ulcer from his suspected seizure on admission. Discussed with bed side nurse to provide local treatment for his lung ulcer. Possible discharge in 24-48 hrs Objective - Vital Signs Vital signs: Vital Signs Temp 98.5 F 01/23/22 05:00 Pulse 50 L 01/23/22 05:00 Resp 18 01/23/22 05:00 BP 146/72 01/23/22 05:00 Pulse Ox 95 01/23/22 05:00 FiO2 Intake & Output 01/22/22 01/23/22 01/23/22 18:59 06:59 18:59 Intake Total 100 1979 Balance 100 1979 Intake: IV 100 Intake, IV Titration 900 Amount Sodium Chloride 0.9% 1, 900 000 ml @ 75 mls/hr IV . [id number] [facility] Rx#:[id number] Oral 1080 Other: Voiding Method Toilet Toilet Urinal Urinal # Voids 2 4 - Exam GENERAL: The patient is alert and oriented x3, not in any acute distress. Well developed, well nourished. HEENT: Pupils are round and equally reacting to light. EOMI. No scleral icterus. No conjunctival pallor. Normocephalic, atraumatic. No pharyngeal erythema. No thyromegaly. CARDIOVASCULAR: S1 and S2 present. No murmurs, rubs, or gallops. PULMONARY: Chest is clear to auscultation, no wheezing or crackles. ABDOMEN: Soft, nontender, nondistended, normoactive bowel sounds. No palpable organomegaly. MUSCULOSKELETAL: No joint swelling or deformity. EXTREMITIES: No cyanosis, clubbing, or pedal edema. NEUROLOGICAL: Gross neurological examination did not reveal any focal deficits. SKIN: No rashes. no petechiae. - Labs CBC & Chem 7: 01/23/22 04:40 01/22/22 04:43 Labs: Abnormal Lab Results - Last 24 Hours (Table) 01/23/22 01/23/22 Range/Units 04:40 04:51 WBC 13.46 H (4.50-10.00) X 10*3/uL Immature Gran # 0.08 H (0.00-0.04) X 10*3/uL Neutrophils # 11.17 H (1.80-7.70) X 10*3/uL Eosinophils # 0 L (0.04-0.35) X 10*3/uL Urine Protein Trace H (Negative) Urine Ketones 2+ H (Negative) Urine Blood Trace H (Negative) Urine Mucus Occasional H (None) /hpf Assessment and Plan Assessment: 1. Altered mental status, present on admission. Most likely metabolic/structures encephalopathy. Ruled out intracranial lesion. Currently improved and patient back close to baseline - Neurology consult recommended EEG and MRI Which were unremarkable - Hold on Keppra till EEG results - we recommend to limit the amount of narcotics,MAPS was checked he is on Percocet 10-to 320 5M every 6 hours, this is a to 7.5 mg, IV morphine when necessary when nothing by mouth 2. Hematemesis, with recurrent nausea vomiting, surgery team consult with plan for EGD: Moderate hiatal hernia and mild esophagitis in the distal esophagus. Improved 3. Substance abuse; urine drug screen is positive for marijuana; counseling done 3. Leukocytosis; no signs of infection; likely reactive DVT prophylaxis; SCDs, No heparin because of possible hematemesis CODE STATUS; full code
[2022-01-23 12:39] VITALS: RESP 16
[2022-01-23] MEDS: SODIUM CHLORIDE 0.9% 1,000 ML IV SCH (12:44)
[2022-01-23] MEDS: CHLORHEXIDINE GLUCONATE 15 ML CUP MUCOUS MEM SCH (14:50)
--- NOTE | 2022-01-23 15:47 | P.PN ---
Subjective Progress Note Date: 01/23/22 CHIEF COMPLAINT: Coffee-ground emesis HISTORY OF PRESENT ILLNESS: Patient status post EGD revealing antral gastritis, moderate size hiatal hernia and mild esophagitis. Patient denies any abdominal pain. Denies any nausea or vomiting. Hemoglobin remaining stable 14.8. PHYSICAL EXAM: VITAL SIGNS: Reviewed. GENERAL: Well-developed in no acute distress. HEENT: No sclera icterus. Extraocular movements grossly intact. Moist buccal mucosa. Head is atraumatic, normocephalic. ABDOMEN: Soft. Nondistended. Nontender. NEUROLOGIC: Alert and oriented. Cranial nerves II through XII grossly intact. ASSESSMENT: 1. Coffee-ground emesis status post EGD revealing antral gastritis, moderate size hiatal hernia and mild esophagitis PLAN: -Continue regular diet -Continue PPI -Seizure workup per neurology Physician Ointment Mill Tender note has been reviewed by physician. Signing provider agrees with the documented findings, assessment, and plan of care. Objective - Vital Signs Vital signs: Vital Signs Temp 97.7 F 01/23/22 12:38 Pulse 61 01/23/22 12:38 Resp 16 01/23/22 12:38 BP 147/78 01/23/22 12:38 Pulse Ox 95 01/23/22 12:38 FiO2 Intake & Output 01/22/22 01/23/22 01/23/22 18:59 06:59 18:59 Intake Total 100 1979 Balance 100 1979 Intake: IV 100 Intake, IV Titration 900 Amount Sodium Chloride 0.9% 1, 900 000 ml @ 75 mls/hr IV . [id number] [facility] Rx#:[id number] Oral 1080 Other: Voiding Method Toilet Toilet Urinal Urinal # Voids 2 4 - Labs CBC & Chem 7: 01/23/22 04:40 01/22/22 04:43 Labs: Abnormal Lab Results - Last 24 Hours (Table) 01/23/22 01/23/22 Range/Units 04:40 04:51 WBC 13.46 H (4.50-10.00) X 10*3/uL Immature Gran # 0.08 H (0.00-0.04) X 10*3/uL Neutrophils # 11.17 H (1.80-7.70) X 10*3/uL Eosinophils # 0 L (0.04-0.35) X 10*3/uL Urine Protein Trace H (Negative) Urine Ketones 2+ H (Negative) Urine Blood Trace H (Negative) Urine Mucus Occasional H (None) /hpf
--- NOTE | 2022-01-23 17:11 | P.PN ---
Subjective Progress Note Date: 01/23/22 Patient was seen for a follow-up. Patient denies any nausea or vomiting. Offers no complaints. Denies any headache. No double vision. Patient says that he smokes marijuana about once a week. He denies any alcohol, no excessive caffeine. He only drinks green tea. He has smoked more than one pack per day for 30 years, quit 30 years ago. Patient denies any illicit drug use. Exact cause of seizure remains uncertain. Objective - Vital Signs Vital signs: Vital Signs Temp 97.7 F 01/23/22 12:38 Pulse 61 01/23/22 12:38 Resp 16 01/23/22 12:38 BP 147/78 01/23/22 12:38 Pulse Ox 95 01/23/22 12:38 FiO2 Intake & Output 01/22/22 01/23/22 01/23/22 18:59 06:59 18:59 Intake Total 100 1979 Balance 100 1979 Intake: IV 100 Intake, IV Titration 900 Amount Sodium Chloride 0.9% 1, 900 000 ml @ 75 mls/hr IV . [id number] [facility] Rx#:[id number] Oral 1080 Other: Voiding Method Toilet Toilet Urinal Urinal # Voids 2 4 - Exam Patient's mental status, speech and language functions are normal. Cranial n erves are normal. Muscle strength is normal. No ataxia. Patient has peripheral edema. - Labs CBC & Chem 7: 01/23/22 04:40 01/22/22 04:43 Labs: Abnormal Lab Results - Last 24 Hours (Table) 01/23/22 01/23/22 Range/Units 04:40 04:51 WBC 13.46 H (4.50-10.00) X 10*3/uL Immature Gran # 0.08 H (0.00-0.04) X 10*3/uL Neutrophils # 11.17 H (1.80-7.70) X 10*3/uL Eosinophils # 0 L (0.04-0.35) X 10*3/uL Urine Protein Trace H (Negative) Urine Ketones 2+ H (Negative) Urine Blood Trace H (Negative) Urine Mucus Occasional H (None) /hpf Assessment and Plan Assessment: * New onset seizure, unclear etiology. No obvious provoking factor identified yet. * Nausea vomiting, with coffee-ground emesis, due to erosive gastritis. * Gait imbalance * Marijuana use. * X tobacco use Plan: * Routine EEG was essentially normal. No definitive epileptiform activity. * MRI of the brain with and without contrast revealed no evidence of intracranial mass, or acute/subacute infarct, no abnormal postcontrast enhancement. Nonspecific white matter changes, likely secondary to small vessel ischemic disease. I personally reviewed MRI, agree with the findings. * Patient underwent EGD, which revealed mild reactive gastritis. Hiatal hernia. 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 * Patient to undergo 2.5 hours EEG. This can be performed outpatient if patient is ready for discharge. If patient stays overnight, then can be performed in the morning. * No indication for antiepileptic medication, as patient's EEG and MRI are negative. * Patient informed of [place] state law of not driving unless seizure free for 6 months, climbing ladders, operating dangerous machinery or unsupervised swimming. * Neurologically clear. Patient recommended to follow-up with a neurologist as an outpatient.
[2022-01-24] MEDS: CHLORHEXIDINE GLUCONATE 15 ML CUP MUCOUS MEM SCH ×2 (00:03→08:16)
[2022-01-24] MEDS: SODIUM CHLORIDE 0.9% 1,000 ML IV SCH ×2 (00:03→08:28)
[2022-01-24] MEDS: ONDANSETRON 4 MG/2 ML VIAL IVP PRN ×2 (00:25→09:47)
[2022-01-24 05:30] VITALS: TEMP 98.7
[2022-01-24] MEDS: PANTOPRAZOLE 40 MG/10 ML VIAL IVP SCH (08:16)
[2022-01-24] MEDS: amLODIPine 10 MG TAB PO SCH (08:16)
[2022-01-24] MEDS: lisinopriL 20 MG TAB PO SCH (08:16)
[2022-01-24 08:22] VITALS: PULSE 99
[2022-01-24] MEDS: oxyCODONE-APAP 7.5-325MG 1 EACH TAB PO PRN ×2 (08:27→13:55)
[2022-01-24 09:07] LABS: HCT 45.6 % (39.6-50.0); HGB 15.8 g/dL (13.0-17.0); MCH 31.5 pg (27.0-32.0); MCHC 34.6 g/dL (32.0-37.0); Mean Platelet Volume 10.2 fL (9.5-12.2); NRBC Per 100 WBC 0 /100 WBCS (0.0-0.0); Platelet Count 169 X 10*3/uL (140-440); RBC 5.01 X 10*6/uL (4.40-5.60); RDW 11.7 % (11.5-14.5); WBC 12.39 X 10*3/uL (4.50-10.00)
--- NOTE | 2022-01-24 14:29 | P.PN ---
Subjective Progress Note Date: 01/24/22 CHIEF COMPLAINT: Coffee-ground emesis HISTORY OF PRESENT ILLNESS: Patient status post EGD revealing antral gastritis, moderate size hiatal hernia and mild esophagitis. Patient denies any abdominal pain. Patient did complain of nausea this morning and required Zofran. No vomiting. He is scheduled for EGD today. Hemoglobin is up at 15.8 PHYSICAL EXAM: VITAL SIGNS: Reviewed. GENERAL: Well-developed in no acute distress. HEENT: No sclera icterus. Extraocular movements grossly intact. Moist buccal mucosa. Head is atraumatic, normocephalic. ABDOMEN: Soft. Nondistended. Nontender. NEUROLOGIC: Alert and oriented. Cranial nerves II through XII grossly intact. ASSESSMENT: 1. Coffee-ground emesis status post EGD revealing antral gastritis, moderate size hiatal hernia and mild esophagitis PLAN: -Continue regular diet -Continue PPI -Continue antiemetics -Seizure workup per neurology Physician Bottom Precipitator Operator note has been reviewed by physician. Signing provider agrees with the documented findings, assessment, and plan of care. Objective - Vital Signs Vital signs: Vital Signs Temp 98.7 F 01/24/22 05:00 Pulse 99 01/24/22 08:21 Resp 16 01/24/22 05:00 BP 179/99 01/24/22 08:21 Pulse Ox 95 01/24/22 05:00 FiO2 Intake & Output 01/23/22 01/24/22 01/24/22 18:59 06:59 18:59 Intake Total 590 Balance 590 Intake: Oral 590 Other: Voiding Method Toilet Urinal # Voids 2 - Labs CBC & Chem 7: 01/24/22 05:10 01/22/22 04:43 Labs: Abnormal Lab Results - Last 24 Hours (Table) 01/24/22 Range/Units 05:10 WBC 12.39 H (4.50-10.00) X 10*3/uL
[2022-01-24 16:07] VITALS: BP 158/74
--- NOTE | 2022-01-24 21:25 | P.DS ---
Providers Date of admission: 01/20/22 14:42 Attending physician: Jordana Santiago MD Consults: 01/20/22 14:42 Consult Physician Routine Consulting Provider: Rob Jeter Consult Reason/Comments: AMS, suspect new onset seizure Do you want consulting provider notified?: Yes 01/21/22 13:50 Consult Physician Urgent Consulting Provider: Layo English Consult Reason/Comments: possilbe coffee ground vomitus Do you want consulting provider notified?: Yes Primary care physician: Volodymyr Oleaqvi Hospital Course: Diagnoses: 1. Altered mental status, present on admission. Most likely metabolic/structures encephalopathy. Related to substance abuse with marijuana . And opioids medication 2. Hematemesis, EGD: Moderate hiatal hernia and mild esophagitis in the distal esophagus. Biopsy showing Ward's esophagus. A patient informed about the importance of treatment and follow-up and he agrees 3. Substance abuse; urine drug screen is positive for marijuana; counseling done 3. Leukocytosis; no signs of infection; likely reactive. Could be Chronic too Hospital course: 71-year-old male who presents with altered level consciousness, agitation. Patient had been found by family members after falling off the couch. He was previously sleeping on the couch paramedics were called. According to the daughter the patient had abnormal respirations. He was agitated and required Versed by paramedics. There was no witnessed seizure activity. Patient was admitted with altered mental status, seizure was suspected but EEG was unremarkable for epileptiform discharge neurologist or following the patient daily. No antiseizure medication required or restarted, no seizure activity recorded, patient mentation back to normal and remained stable over several days prior to discharge. Repeat prolonged EEG done on the day of discharge, neurologist however cleared the patient for discharge and Dr. Mascorro states if he notice any abnormality he will call the patient by himself to address it with him. Patient also developed hematemesis, he had EGD showing gastric antral inflammation however biopsy did not confirm this diagnosis. However the biopsy showing Ward's esophagus with no dysplastic changes, also there was evidence of esophagitis on EGD. Patient informed as well as with the treatment with Protonix. Patient has follow-up appointment with Dr. Rosenberg in one week on 01/30, both patient and know about the appointment and will and for him to follow-up and they know about the precancerous nature of this lesion and they understand the importance of follow-up. Patient was tolerating diet 25-50% is still of some nausea and Zofran as provided for him. Patient was eager for discharge since yesterday, he agreed to stay one more night but today he is more consistent to be discharged. Patient however looks medically stable. He denies chest pain or dyspnea area no vomiting or diarrhea. No urinary complaints. No fever. No headache or other neurological complaints Patient was cleared for discharge by both surgeon and neurology service. Patient was counseled extensively to avoid marijuana. Problems and management plan were discussed with the patient and at bedside over the phone and they verbalized understanding and acceptance Patient was found stable and can be discharged home however he needs follow-up as an outpatient. Patient was instructed to follow up with PCP Dr. Franz within one week and patient agrees with the appointments made for him on 02/06 and stated and told me he would follow up. Also he said he will follow-up with the surgeon as above Physical exam Gen: patient is a AAOx3, no distress CVS: S1-S2, RRR, no murmur Lungs: B/L CTA, no wheezing Abdomen: soft, no distention, no tenderness, positive bowel sounds Extremity: no leg edema or induration Time spent more than 35 minutes Patient Condition at Discharge: Stable Plan - Discharge Summary Discharge Rx Participant: No New Discharge Prescriptions: New Acetaminophen Tab [Tylenol] 325 mg PO Q6HR PRN tab PRN Reason: Mild Pain Or Fever > 100.5 Chlorhexidine Gluconate [Peridex] 15 ml MUCOUS MEM BID 3 Days #480 ml Pantoprazole Sodium [Protonix] 40 mg PO DAILY #30 tab Ondansetron [Zofran] 4 mg PO Q8HR PRN 3 Days #12 tab PRN Reason: Nausea And Vomiting Continue amLODIPine BESYLATE/BENAZEPRIL [Lotrel 10-40 MG] 1 cap PO DAILY Changed oxyCODONE-APAP 10-325MG [Percocet 10-325 mg] 0.5 tab PO QID PRN #0 PRN Reason: Pain Discharge Medication List amLODIPine BESYLATE/BENAZEPRIL [Lotrel 10-40 MG] 1 cap PO DAILY 06/07/16 [History] Acetaminophen Tab [Tylenol] 325 mg PO Q6HR PRN tab 01/24/22 [Rx] Chlorhexidine Gluconate [Peridex] 15 ml MUCOUS MEM BID 3 Days #480 ml 01/24/22 [Rx] Ondansetron [Zofran] 4 mg PO Q8HR PRN 3 Days #12 tab 01/24/22 [Rx] Pantoprazole Sodium [Protonix] 40 mg PO DAILY #30 tab 01/24/22 [Rx] oxyCODONE-APAP 10-325MG [Percocet 10-325 mg] 0.5 tab PO QID PRN #0 01/24/22 [Rx] Follow up Appointment(s)/Referral(s): Volodymyr Farnz MD [Primary Care Provider] - 02/06/22 12:20 pm Keny Garner MD [Medical Doctor] - 10 Days (neurologist Doctors office will call patient to schedule an appointment) Layo English MD [STAFF PHYSICIAN] - 01/31/22 2:30 pm Patient Instructions/Handouts: New-Onset Seizure in Adults (DC) Activity/Diet/Wound Care/Special Instructions: Heart healthy diet activity is restricted till you see your doctor Prolonged EEG is recommended as an outpatient we recommend for you to avoid marijuana ( cannabis) Discharge Disposition: HOME SELF-CARE
--- NOTE | 2022-01-24 23:47 | P.PN ---
Subjective Progress Note Date: 01/24/22 Patient was seen for a follow-up. Patient denies any nausea or vomiting. Offers no complaints. Denies any headache. No double vision. Patient admits to smoking marijuana, but does not believe is producing any symptoms, as he has been smoking marijuana since he was very young. However patient's has different opinion as mentioned yesterday. Patient says that he smokes marijuana about once a week. He denies any alcohol, no excessive caffeine. He only drinks green tea. He has smoked more than one pack per day for 30 years, quit 30 years ago. Patient denies any illicit drug use. Objective - Vital Signs Vital signs: Vital Signs Temp 98.7 F 01/24/22 05:00 Pulse 99 01/24/22 08:21 Resp 16 01/24/22 05:00 BP 179/99 01/24/22 08:21 Pulse Ox 95 01/24/22 05:00 FiO2 Intake & Output 01/23/22 01/24/22 01/24/22 18:59 06:59 18:59 Intake Total 590 Balance 590 Intake: Oral 590 Other: Voiding Method Toilet Urinal # Voids 2 - Exam Patient's mental status, speech and language functions are normal. Cranial nerves are normal. Muscle strength is normal. No ataxia. Patient has peripheral edema. - Labs CBC & Chem 7: 01/24/22 05:10 01/22/22 04:43 Labs: Abnormal Lab Results - Last 24 Hours (Table) 01/24/22 Range/Units 05:10 WBC 12.39 H (4.50-10.00) X 10*3/uL Assessment and Plan Assessment: * New onset seizure, perhaps related to recent Covid infection and marijuana use. * Nausea vomiting, with coffee-ground emesis, related to hiatal hernia and erosive gastritis, resolved. * Recent Covid infection, recovered 3 weeks ago. * Gait imbalance * Marijuana use. * History of fall in 1987 with some musculoskeletal injuries. * X tobacco use Plan: * Routine EEG was essentially normal. No definitive epileptiform activity. * Prolonged, 2.5 hour EEG completed, results pending. * MRI of the brain with and without contrast revealed no evidence of intracranial mass, or acute/subacute infarct, no abnormal postcontrast enhancement. Nonspecific white matter changes, likely secondary to small ve ssel ischemic disease. I personally reviewed MRI, agree with the findings. * EGD, which revealed mild reactive gastritis. Hiatal hernia. Esophageal biopsy revealed benign glandular mucosa with focal intestinal/goblet cell metaplasia. * No indication for antiepileptic medication, as patient's EEG and MRI are negative, and seizure felt to be related to use of marijuana/recent Covid. * Patient informed of [place] state law of not driving unless seizure free for 6 months, climbing ladders, operating dangerous machinery or unsupervised swimming. * Report of prolonged EEG pending. I will call patient home with the results. At the prolonged EEG is abnormal, then he may be a candidate for AED.
== END 2022-01-24 17:30 | disposition home or self-care (01) | DRG 917 ==
LOC: EC 12:22 → 5NMEDONC 14:42
PROVIDERS: ADMIT Internal Medicine; ATTEND Internal Medicine
PROC: 0DB78ZX Excision of Stomach, Pylorus, Via Natural or Artificial Opening Endoscopic, Diagnostic (ICD-10-PCS; 2022-01-22)
PROC: 0DB38ZX Excision of Lower Esophagus, Via Natural or Artificial Opening Endoscopic, Diagnostic (ICD-10-PCS; principal; 2022-01-22 07:50)
DX: T40.2X1A Poisoning by other opioids, accidental (unintentional), initial encounter (principal); G92.8 Other toxic encephalopathy; K21.01 Gastro-esophageal reflux disease with esophagitis, with bleeding; K29.71 Gastritis, unspecified, with bleeding; K92.0 Hematemesis; G40.89 Other seizures; I11.9 Hypertensive heart disease without heart failure; F12.10 Cannabis abuse, uncomplicated; K44.9 Diaphragmatic hernia without obstruction or gangrene; T40.711A Poisoning by cannabis, accidental (unintentional), initial encounter; K22.70 Barrett's esophagus without dysplasia; D72.828 Other elevated white blood cell count; R60.0 Localized edema; R94.01 Abnormal electroencephalogram [EEG]; M16.51 Unilateral post-traumatic osteoarthritis, right hip; U09.9 Post COVID-19 condition, unspecified; M85.80 Other specified disorders of bone density and structure, unspecified site; W08.XXXA Fall from other furniture, initial encounter; Z87.891 Personal history of nicotine dependence; Z88.8 Allergy status to other drugs, medicaments and biological substances; Z88.0 Allergy status to penicillin; Z91.048 Other nonmedicinal substance allergy status; Z87.81 Personal history of (healed) traumatic fracture; Y92.009 Unspecified place in unspecified non-institutional (private) residence as the place of occurrence of the external cause; Z79.891 Long term (current) use of opiate analgesic; Z91.81 History of falling
CPT/HCPCS: 36415; 43239; 70450; 70553; 71045; 71046; 72125; 72170; 74018; 80048; 80053; 80306; 80320; 81001; 82140; 82271; 83735; 84484; 85025; 85027; 85610; 85730; 88305; 93005; 95713; 95816; 96361; 96365; 99285

== ENCOUNTER → 2022-01-31 | Outpatient (CLI) | payer MEDICARE ==
[2022-01-31 23:14] LABS: Basophils # (A) 0.04 X 10*3/uL (0.00-0.10); Basophils % (A) 0.3 %; Eosinophils # (A) 0.11 X 10*3/uL (0.04-0.35); Eosinophils % (A) 0.9 %; HCT 48.4 % (39.6-50.0); HGB 16.8 g/dL (13.0-17.0); Immature Grans, Automated 0.5 %; Lymphocytes # (A) 2.39 X 10*3/uL (0.90-5.00); Lymphocytes % (A) 19.4 %; MCH 32.4 pg (27.0-32.0); MCHC 34.7 g/dL (32.0-37.0); MCV 93.3 fL (80.0-97.0); Mean Platelet Volume 10.6 fL (9.5-12.2); Monocytes # (A) 1.07 X 10*3/uL (0.20-1.00); Monocytes % (A) 8.7 %; NRBC Per 100 WBC 0 /100 WBCS (0.0-0.0); Neutrophils # (A) 8.62 X 10*3/uL (1.80-7.70); Neutrophils % (A) 70.2 %; Platelet Count 186 X 10*3/uL (140-440); RBC 5.19 X 10*6/uL (4.40-5.60); RDW 12.1 % (11.5-14.5); WBC 12.29 X 10*3/uL (4.50-10.00)
== END | disposition home or self-care (01) ==
LOC: LABPAT 15:17
PROVIDERS: ATTEND Surgery
DX: Z01.818 Encounter for other preprocedural examination (principal); I49.5 Sick sinus syndrome; K21.00 Gastro-esophageal reflux disease with esophagitis, without bleeding
CPT/HCPCS: 85025; 93005

== ENCOUNTER 2022-03-08 07:46 | Day surgery (SDC) | payer MEDICARE ==
[2022-03-05 10:27] VITALS: BMI 28.8
[~2022-03-08 07:46] MED LIST: ACETAMINOPHEN TAB 500 MG TAB PO PRN; DEXAMETHASONE SOD PHOSPHATE 4 MG/ML 1 ML VIAL IV ONE; HEPARIN SODIUM,PORCINE/PF 5,000 UNIT/0.5 ML SYRINGE SQ PRN; LIDOCAINE 1% (10MG/ML) FOR IV START INTRADERMA PRN; MORPHINE SULFATE 4 MG/ML SYRINGE IV PRN; ONDANSETRON 4 MG/2 ML VIAL IVP ONE; ONDANSETRON 4 MG/2 ML VIAL IVP PRN
[2022-03-08] MEDS: LACTATED RINGERS 1,000 ML IV SCH (08:46)
--- NOTE | 2022-03-08 08:58 | P.GSHP ---
History of Present Illness H&P Date: 03/08/22 Chief Complaint: GERD This a 71-year-old male presents today for laparoscopic Jazmine fundal plication. Patient has developed a moderate size hiatal hernia. Patient's had issues with GERD. Past Medical History Past Medical History: GERD/Reflux, Hypertension, Osteoarthritis (OA) Additional Past Medical History / Comment(s): 01/20/22 IP ADM FOR SEIZURE- UNKNOWN ETIOLOGY(none since). POSITIVE FOR COVID 12/09/21, .hip pain, NECK PAIN and BACK PAIN from a work injury in 1987 (fell > 40 feet). hiatal hernia, History of Any Multi-Drug Resistant Organisms: None Reported Past Surgical History: Cholecystectomy, Orthopedic Surgery Additional Past Surgical History / Comment(s): BENOIT CATARACT WITH LENS IMPLANT. 1987 right hip, shoulder, elbows repair from fall injury Past Anesthesia/Blood Transfusion Reactions: No Reported Reaction Smoking Status: Former smoker - Past Family History Mother Family Medical History: No Reported History Father Family Medical History: Unable to Obtain Medications and Allergies Home Medications Medication Instructions Recorded Confirmed Type amLODIPine BESYLATE/BENAZEPRIL 1 cap PO QAM 06/07/16 03/05/22 History [Lotrel 10-40 MG] Omeprazole [PriLOSEC] 40 mg PO DAILY 03/05/22 03/05/22 History oxyCODONE-APAP 10-325MG [Percocet 0.5 tab PO QID 03/05/22 03/05/22 History 10-325 mg] Allergies Allergy/AdvReac Type Severity Reaction Status Date / Time shellfish derived [Shrimp] Allergy Rash/Hives Verified 03/08/22 08:14 Surgical - Exam Vital Signs Temp Pulse Resp BP Pulse Ox 96.7 F L 63 17 165/83 97 03/08/22 08:19 03/08/22 08:19 03/08/22 08:19 03/08/22 08:19 03/08/22 08:19 - General well developed, well nourished, no distress - Eyes PERRL - ENT normal pinna - Neck no masses - Respiratory normal expansion - Cardiovascular Rhythm: regular - Abdomen Abdomen: soft, non tender Assessment and Plan Assessment: GERD. We'll perform laparoscopic Jazmine fundoplication..
[2022-03-08] MEDS ORDERED: ROCURONIUM 10 MG/ML (5 ML VIAL) IV ONE (09:20)
[2022-03-08] MEDS ORDERED: LIDOCAINE 2% INJ 20 MG/ML (2 ML VIAL) ONE (09:20)
[2022-03-08] MEDS ORDERED: PROPOFOL 10 MG/ML 20 ML VIAL IV ONE (09:20)
[2022-03-08] MEDS ORDERED: HYDROmorphone (PF) 1 MG/ML ONE (09:20)
[2022-03-08] MEDS ORDERED: MIDAZOLAM 2 MG/2 ML VIAL ONE (09:20)
[2022-03-08] MEDS ORDERED: fentaNYL (PF) 50 MCG/ML 2 ML AMP ONE (09:20)
[2022-03-08] MEDS ORDERED: SUCCINYLCHOLINE CHLORIDE 200 MG/10 ML VIAL IV ONE (09:20)
[2022-03-08] MEDS ORDERED: BUPIVACAINE (PF) 0.25% 30 ML VIAL SQ ONE ×2 (09:43→09:46)
[2022-03-08] MEDS ORDERED: LACTATED RINGERS 1,000 ML IV ONE (10:16)
--- NOTE | 2022-03-08 10:21 | P.OP ---
Date of Procedure: 03/08/22 Preoperative Diagnosis: GERD Postoperative Diagnosis: GERD Procedure(s) Performed: Laparoscopic Jazmine fundoplication Anesthesia: BROOKE Surgeon: Layo English Estimated Blood Loss (ml): 5 Pathology: other Condition: stable Disposition: PACU Description of Procedure: Oseihe patient was placed on the operating table in the supine position. The patient received general anesthesia. And was placed in dorsal lithotomy position. The patient was prepped and draped in the usual sterile fashion. The skin incision sites were anesthetized with 1% local Xylocaine. The skin was incised in the left periumbilical area and then using a blade less 5 mm trocar under direct visualization panel cavity was entered. After adequate insufflation the laparoscope was then placed into the peritoneal cavity. Next a 5 mm trochars placed in the right epigastric position. Another 5 millimeter trocar the right lateral position. Another 5 millimeter trocar in the left lateral position a 5 mm trocar is placed in the left epigastric position. And then the initial 5 mm trocar was exchanged for a 10 mm trocar. The left lateral lobe liver was retracted. The hernia was seen. The crural defect was then dissected using the Harmonic scissors device. A 360 crural dissection was performed the esophagus stomach was reduced back into the peritoneal Cavity. The crural defect was then closed using 2-0 Ethibond suture. Next the fundus of the stomach was mobilized using the [place] scissors device. and then a 58- Mongolian bougie dilator was placed oropharynx passed into the esophagus and stomach the fundal plication wrap was then performed by grasping the fundus posteriorly and bringing it around the esophagus and stomach fundoplication was then performed using 2-0 Ethibond suture. Care was taken that the fundal location rested over top of the intra-abdominal esophagus. There was no injury seen to the stomach or esophagus. The dilator was then withdrawn. The abdomen was irrigated there is no bleeding seen. The trochars were then withdrawn and then skin incision sites were closed using 3-0 Monocryl suture Steri-Strips are applied. Patient thought procedure well and sent to recovery room in stable condition.
[2022-03-08] MEDS ORDERED: HYDROmorphone 0.5 MG/0.5 ML SYRINGE IVP ONE ×4 (10:44→11:53)
[2022-03-08] MEDS ORDERED: ONDANSETRON 4 MG/2 ML VIAL IVP ONE (11:09)
[2022-03-08] MEDS: HYDROmorphone 1 MG/ML 1 ML SYRINGE IVP PRN ×3 (13:24→20:27)
[2022-03-08] MEDS ORDERED: NON FORMULARY DRUG (Amlodipine Besylate/Benazepril [Lotrel 10-40 Mg] 1 EACH Capsule) PO SCH (15:00)
[2022-03-08] MEDS: amLODIPine 10 MG TAB PO SCH (16:43)
[2022-03-08] MEDS: lisinopriL 20 MG TAB PO SCH (16:43)
[2022-03-08] MEDS ORDERED: TAMSULOSIN 0.4 MG CAP.ER.24H PO SCH (18:30)
[2022-03-08 20:41] VITALS: BP 155/82; PULSE 76; RESP 17; TEMP 97.7
--- NOTE | 2022-03-08 23:29 | P.CONS ---
History of Present Illness - Reason for Consult Consult date: 03/08/22 Medical management - Chief Complaint Status post laparoscopic Jazmine fundoplication - History of Present Illness Patient is a 71-year-old male with a known history of severe GERD, hypertension, osteoarthritis and history of COVID-19 infection and history of back pain from work injury and prior history of smoking was admitted to the hospital for elective laparoscopic Jazmine fundoplication. Patient was found to have moderate sized hiatal hernia and chronic symptoms of GERD. Patient also had cardiac work-up done with recent stress test. Patient tolerated the procedure well. Currently sitting on the side of the bed. Awake alert and oriented x3. No nausea vomiting or abdominal pain. No complaints of chest pain or shortness of breath. No cough or sputum production. Laboratory data is not available at this time. Review of Systems Constitutional: Patient denies any fever or chills . No generalized weakness or weight loss. Abdomen: Patient denied nausea vomiting and diarrhea and abdominal pain. Cardiovascular: Patient denies any chest pain or short of breath no palpitations. Respiratory: patient denied any cough is from production. No shortness of breath Neurologic: Patient denied any numbness or tingling headache. Musculoskeletal: Patient denies any complaints of joint swelling or deformity. Skin: Negative Psychiatric: Negative Endocrine: No heat or cold intolerance. No recent weight gain. Genitourinary: No dysuria or hematuria. All other 14 point ROS negative except the above Past Medical History Past Medical History: GERD/Reflux, Hypertension, Osteoarthritis (OA) Additional Past Medical History / Comment(s): 01/20/22 IP ADM FOR SEIZURE- UNKN OWN ETIOLOGY(none since). POSITIVE FOR COVID 12/09/21, .hip pain, NECK PAIN and BACK PAIN from a work injury in 1987 (fell > 40 feet). hiatal hernia, History of Any Multi-Drug Resistant Organisms: None Reported Past Surgical History: Cholecystectomy, Orthopedic Surgery Additional Past Surgical History / Comment(s): BENOIT CATARACT WITH LENS IMPLANT. 1987 right hip, shoulder, elbows repair from fall injury Past Anesthesia/Blood Transfusion Reactions: No Reported Reaction Past Psychological History: No Psychological Hx Reported Smoking Status: Former smoker Past Alcohol Use History: None Reported Additional Past Alcohol Use History / Comment(s): QUIT SMOKING ABOUT 25 YRS. 1PPD. Past Drug Use History: None Reported - Past Family History Mother Family Medical History: No Reported History Father Family Medical History: Unable to Obtain Medications and Allergies Home Medications Medication Instructions Recorded Confirmed Type amLODIPine BESYLATE/BENAZEPRIL 1 cap PO QAM 06/07/16 03/05/22 History [Lotrel 10-40 MG] Omeprazole [PriLOSEC] 40 mg PO DAILY 03/05/22 03/05/22 History oxyCODONE-APAP 10-325MG [Percocet 0.5 tab PO QID 03/05/22 03/05/22 History 10-325 mg] Allergies Allergy/AdvReac Type Severity Reaction Status Date / Time shellfish derived [Shrimp] Allergy Rash/Hives Verified 03/08/22 08:14 Physical Exam Vitals: Vital Signs Temp Pulse Resp BP Pulse Ox 03/08/22 14:23 98.2 F 73 18 150/77 95 03/08/22 13:33 66 16 120/60 97 03/08/22 13:25 55 L 16 160/70 98 03/08/22 12:49 65 16 136/63 97 03/08/22 12:21 64 16 127/60 97 03/08/22 11:46 64 16 143/65 99 03/08/22 11:19 65 16 144/60 99 03/08/22 11:04 61 16 148/62 100 03/08/22 10:49 66 16 181/85 100 03/08/22 10:30 96.8 F L 74 16 183/91 100 03/08/22 08:19 96.7 F L 63 17 165/83 97 Intake and Output 03/07/22 03/08/22 03/08/22 22:59 06:59 14:59 Intake Total 1550 Output Total 205 Balance 1345 Intake: IV 1550 Output: Urine 200 Estimated Blood Loss 5 Other: Weight 90.4 kg PHYSICAL EXAMINATION: Patient is lying in the bed comfortably, no acute distress, awake alert and oriented.. HEENT: Normocephalic. Neck is supple. Pupils reactive. Nostrils clear. Oral cavity is moist. Neck reveals no JVD, carotid bruits, or thyromegaly. CHEST EXAMINATION: Trachea is central. Symmetrical expansion. Lung bower clear to auscultation and percussion. CARDIAC: Normal S1, S2 with no gallops. No murmurs ABDOMEN: Soft. Bowel sounds normal. No organomegaly. No abdominal bruits. Extremities: reveal no edema. No clubbing or cyanosis Neurologically awake, alert, oriented x3 with well-coordinated movements. No f ocal deficits noted Skin: No rash or skin lesions. Psychiatric: Coperative. Nonsuicidal Musculoskeletal: No joint swelling or deformity. Normal range of motion. Assessment and Plan Assessment: Status post laparoscopic Jazmine fundoplication. Postoperative day 0 Hypertension uncontrolled. Chronic GERD symptoms Moderate hiatal hernia Osteoarthritis History of neck pain and back pain from work injury DVT prophylaxis Plan: Patient currently on pain management, bowel regimen and encourage incentive spirometry. Currently on IV hydration and started on clear liquid diet. Patient restarted back on home blood pressure medications and follow-up closely. Follow-up CBC and BMP tomorrow. Further recommendations based on the clinical course. Thank you for your consult. Time with Patient: Greater than 30
[2022-03-08] MEDS: D5-0.45% NACL WITH KCL 20MEQ/L 1,000 ML IV SCH ×2 (23:53)
[2022-03-09] MEDS: HYDROmorphone 1 MG/ML 1 ML SYRINGE IVP PRN ×2 (01:46→12:26)
[2022-03-09] MEDS ORDERED: ENOXAPARIN 40 MG/0.4 ML SYRINGE SQ SCH (09:00)
[2022-03-09] MEDS: D5-0.45% NACL WITH KCL 20MEQ/L 1,000 ML IV SCH (10:49)
[2022-03-09] MEDS: lisinopriL 20 MG TAB PO SCH (12:06)
[2022-03-09] MEDS: amLODIPine 10 MG TAB PO SCH (12:06)
[2022-03-09] MEDS: LACTATED RINGERS 1,000 ML IV SCH (12:07)
--- NOTE | 2022-03-09 12:36 | P.DS ---
Providers Expected date of discharge: 03/09/22 Attending physician: Layo English Consults: 03/08/22 10:21 Consult Physician Routine Consulting Provider: Tomás Phillips Consult Reason/Comments: Medical management Do you want consulting provider notified?: Yes Primary care physician: [facility] Course: Patient underwent elective Jazmine fundoplication yesterday. Doing well today. Tolerating liquid diet. He would like to go home today. His vital signs of and stable. Abdomen soft nondistended with minimal incisional tenderness. We'll discharge. Continue full liquid Jazmine diet post discharge. Follow-up with Dr. English 1 week. Plan - Discharge Summary Discharge Rx Participant: No New Discharge Prescriptions: No Action amLODIPine BESYLATE/BENAZEPRIL [Lotrel 10-40 MG] 1 cap PO QAM Omeprazole [PriLOSEC] 40 mg PO DAILY oxyCODONE-APAP 10-325MG [Percocet 10-325 mg] 0.5 tab PO QID Discharge Medication List amLODIPine BESYLATE/BENAZEPRIL [Lotrel 10-40 MG] 1 cap PO QAM 06/07/16 [History] Omeprazole [PriLOSEC] 40 mg PO DAILY 03/05/22 [History] oxyCODONE-APAP 10-325MG [Percocet 10-325 mg] 0.5 tab PO QID 03/05/22 [History] Follow up Appointment(s)/Referral(s): Layo English MD [STAFF PHYSICIAN] - 1 Week Patient Instructions/Handouts: *Surgery [facility] - ([facility]) Lap Jazmine Fundiplication Post-Op Instructions, Clear Liquid Diet (DC) Activity/Diet/Wound Care/Special Instructions: Jazmine clears No straws , no carbonation
--- NOTE | 2022-03-09 20:58 | P.PN ---
Subjective Progress Note Date: 03/09/22 Patient is a 71-year-old male with a known history of severe GERD, hypertension, osteoarthritis and history of COVID-19 infection and history of back pain from work injury and prior history of smoking was admitted to the hospital for elective laparoscopic Jazmine fundoplication. Patient was found to have moderate sized hiatal hernia and chronic symptoms of GERD. Patient also had cardiac work-up done with recent stress test. Patient tolerated the procedure well. Currently sitting on the side of the bed. Awake alert and oriented x3. No nausea vomiting or abdominal pain. No complaints of chest pain or shortness of breath. No cough or sputum production. Laboratory data is not available at this time. 03/09/2022 Patient is currently sitting on the chair. Comfortably. Awake alert [place] x3. No complaints of abdominal pain. Symptomatically improved. No nausea vomiting or diarrhea. No cough or sputum production. No other acute overnight issues. Patient is tolerating oral diet. Patient is being discharged home today. Discharge medication reconciliation was done. Current medications reviewed. Objective - Vital Signs Vital signs: Vital Signs Temp 97.7 F 03/08/22 19:04 Pulse 76 03/08/22 19:04 Resp 17 03/08/22 19:04 BP 155/82 03/08/22 19:04 Pulse Ox 95 03/08/22 19:04 FiO2 Intake & Output 03/09/22 03/09/22 03/10/22 06:59 18:59 05:59 Output Total 775 1280 Balance -775 -1280 Output: Urine 775 1280 Other: Voiding Method Toilet Urinal Urinal - Exam PHYSICAL EXAMINATION: Patient is lying in the bed comfortably, no acute distress, awake alert and oriented.. HEENT: Normocephalic. Neck is supple. Pupils reactive. Nostrils clear. Oral cavity is moist. Neck reveals no JVD, carotid bruits, or thyromegaly. CHEST EXAMINATION: Trachea is central. Symmetrical expansion. Lung bower clear to auscultation and percussion. CARDIAC: Normal S1, S2 with no gallops. No murmurs ABDOMEN: Soft. Bowel sounds present. Nontender. No organomegaly. No abdominal bruits. Extremities: reveal no edema. No clubbing or cyanosis Neurologically awake, alert, oriented x3 with well-coordinated movements. No focal deficits noted Skin: No rash or skin lesions. Psychiatric: Coperative. Nonsuicidal, Musculoskeletal: No joint swelling or deformity. Normal range of motion. Assessment and Plan Assessment: Status post laparoscopic Jazmine fundoplication. Postoperative day 1 Hypertension uncontrolled. Chronic GERD symptoms Moderate hiatal hernia Osteoarthritis History of neck pain and back pain from work injury DVT prophylaxis Plan: Patient will be continued incentive spirometry and increase oral intake. Improved. Tolerating oral diet. Patient is being discharged home today. Follow-up with general surgery and primary care physician.
== END 2022-03-09 14:21 | disposition home or self-care (01) ==
LOC: OR 07:46 → 4SSUR 13:40 → OR 03-09 14:21
PROVIDERS: ATTEND Surgery
DX: K21.9 Gastro-esophageal reflux disease without esophagitis (principal); K44.9 Diaphragmatic hernia without obstruction or gangrene; I10 Essential (primary) hypertension; M19.90 Unspecified osteoarthritis, unspecified site; Z90.49 Acquired absence of other specified parts of digestive tract; Z87.891 Personal history of nicotine dependence
CPT/HCPCS: 43280; J1100; J0690; J2405; J1170 ×3; J1644

== ENCOUNTER 2022-08-12 12:40 | Inpatient (IN) | payer MEDICARE ==
[2022-08-12] MEDS ORDERED: SODIUM CHLORIDE 0.9% 1,000 ML IV STA (13:15)
[2022-08-12] MEDS ORDERED: levETIRAcetam IV 1,500 MG in SALINE 1 100ML.BAG IVPB STA (13:16)
--- NOTE | 2022-08-12 13:24 | ED ---
Seizure HPI - General Chief Complaint: Seizure Stated Complaint: Seizure Time Seen by Provider: 08/12/22 12:58 Source: patient, EMS, RN notes reviewed Mode of arrival: EMS Limitations: no limitations - History of Present Illness Initial Comments: 71-year-old male history of being diagnosed with a seizure disorder prostate 5 months ago he states he had EEGs CT workup is currently not on any medication who apparently had a seizure prior to arrival he did bite the front side of his tongue he states that earlier before the episode she did have some chest pain. Currently he feels back to normal he denies any head neck or back pain just tongue pain. He states he may have bitten it with a appliance he has and the upper part of his mouth. No reported fevers chills sweats palpitations no focal deficits no complaints of headache blurry vision or other symptoms. MD Complaint: possible seizure - Related Data Home Medications Medication Instructions Recorded Confirmed amLODIPine BESYLATE/BENAZEPRIL 1 cap PO DAILY 06/07/16 08/12/22 [Lotrel 10-40 MG] oxyCODONE-APAP 10-325MG [Percocet 1 tab PO QID PRN 03/05/22 08/12/22 10-325 mg] Allergies Allergy/AdvReac Type Severity Reaction Status Date / Time shellfish derived [Shrimp] Allergy Rash/Hives Verified 08/12/22 14:37 Review of Systems ROS Statement: Those systems with pertinent positive or pertinent negative responses have been documented in the HPI. ROS Other: All systems not noted in ROS Statement are negative. Past Medical History Past Medical History: GERD/Reflux, Hypertension, Osteoarthritis (OA) Additional Past Medical History / Comment(s): 01/20/22 IP ADM FOR SEIZURE- UNKNOWN ETIOLOGY(none since). POSITIVE FOR COVID 12/09/21, .hip pain, NECK PAIN and BACK PAIN from a work injury in 1987 (fell > 40 feet). hiatal hernia, History of Any Multi-Drug Resistant Organisms: None Reported Past Surgical History: Cholecystectomy, Orthopedic Surgery Additional Past Surgical History / Comment(s): BENOIT CATARACT WITH LENS IMPLANT. 1987 right hip, shoulder, elbows repair from fall injury Past Anesthesia/Blood Transfusion Reactions: No Reported Reaction Past Psychological History: No Psychological Hx Reported Smoking Status: Former smoker Past Alcohol Use History: None Reported Past Drug Use History: None Reported - Past Family History Mother Family Medical History: No Reported History Father Family Medical History: Unable to Obtain General Exam - General Exam Comments Initial Comments: This is a well-developed well-nourished awake alert oriented 4 male Limitations: no limitations General appearance: alert, in no apparent distress Head exam: Present: atraumatic, normocephalic, normal inspection Eye exam: Present: normal appearance, PERRL, EOMI. Absent: scleral icterus, conjunctival injection, periorbital swelling ENT exam: Present: other (Admission oral cavity demonstrates an abrasion to the right anterior tip of the tongue evidence of a bite no active bleeding at this time. No other injury noted.) Neck exam: Present: normal inspection, full ROM, other. Absent: tenderness, meningismus, lymphadenopathy Respiratory exam: Present: normal lung sounds bilaterally. Absent: respiratory distress, wheezes, rales, rhonchi, stridor Cardiovascular Exam: Present: regular rate, normal rhythm, normal heart sounds. Absent: systolic murmur, diastolic murmur, rubs, gallop, clicks GI/Abdominal exam: Present: soft, normal bowel sounds. Absent: distended, tenderness, guarding, rebound, rigid Extremities exam: Present: normal inspection, full ROM, normal capillary refill. Absent: tenderness, pedal edema, joint swelling, calf tenderness Back exam: Present: normal inspection Neurological exam: Present: alert, oriented X3, CN II-XII intact Psychiatric exam: Present: normal affect, normal mood Skin exam: Present: warm, dry, intact, normal color. Absent: rash Course Vital Signs 08/12/22 08/12/22 08/12/22 12:43 13:25 17:10 Temperature 97.0 F L Pulse Rate 61 57 L 67 Respiratory 18 18 18 Rate Blood Pressure 176/101 161/98 161/102 O2 Sat by Pulse 97 98 98 Oximetry - Reevaluation(s) Reevaluation #1: 08/12/22 17:56 Evaluation patient finds no further activity. I did discuss the findings with the patient's who didn't witness the activity today the seizure activity last approximate 20 minutes. No injury reported. Medical Decision Making - Medical Decision Making Patient has had no further seizure activity at did discuss findings the patient family also with Dr. Esteves. Patient will be admitted with evaluation by neurology. He was initially given Keppra. This will be continued until evaluation by neurology.Was pt. sent in by a medical professional or institution ([facility], MARINE REPORTER, urgent care, hospital, or usp...) When possible be specific @ -[No] Did you speak to anyone other than the patient for history (EMS, parent, family, police, friend...)? What history was obtained from this source @ -[Paramedics, family] Did you review nursing and triage notes (agree or disagree)? Why? @ -[I reviewed and agree with nursing and triage notes] Were old charts reviewed (outside hosp., previous admission, EMS record, old EKG, old radiological studies, urgent care reports/EKG's, usp records)? Report findings @ -[Previous admission old charts were reviewed] Differential Diagnosis (chest pain, altered mental status, abdominal pain women, abdominal pain men, vaginal bleeding, weakness, fever, dyspnea, syncope, headache, dizziness, GI bleed, back pain, seizure, CVA, palpatations, mental health, musculoskeletal)? @ -[Seizure] EKG interpreted by me (3pts min.). @ -[As above] X-rays interpreted by me (1pt min.). @ -[None done] CT interpreted by me (1pt min.). @ -[As above] U/S interpreted by me (1pt. min.). @ -[None done] What testing was considered but not performed or refused? (CT, X-rays, U/S, labs)? Why? @ -[None] What meds were considered but not given or refused? Why? @ -[None] Did you discuss the management of the patient with other professionals (professionals i.e. [facility], MARINE REPORTER, lab, RT, psych nurse, social insurance specialist, quill skinner, teacher, biological technical officer, special education case manager)? Give summary @ -[After nerves II] Was smoking cessation discussed for >3mins.? @ -[No] Was critical care preformed (if so, how long)? @ -[No] Were there social determinants of health that impacted care today? How? (Homelessness, low income, unemployed, alcoholism, drug addiction, transportation, low edu. Level, literacy, decrease access to med. care, residential, rehab)? @ -[No] Was there de-escalation of care discussed even if they declined (Discuss DNR or withdrawal of care, Hospice)? DNR status @ -[No] What co-morbidities impacted this encounter? (DM, HTN, Smoking, COPD, CAD, Cancer, CVA, ARF, Chemo, Hep., AIDS, mental health diagnosis, sleep apnea, morbid obesity)? @ -[Seizure disorder] Was patient admitted / discharged? Hospital course, mention meds given and route, prescriptions, significant lab abnormalities, going to OR and other pertinent info. @ -[Patient was ] admitted for inpatient evaluation and treatment by neurology for this recurrent seizure disorder. Patient was initially placed on IV Keppra and will have seizure precautions. Tongue laceration noted no repair indicated. Undiagnosed new problem with uncertain prognosis? @ -[No] Drug Therapy requiring intensive monitoring for toxicity (Heparin, Nitro, Insulin, Cardizem)? @ -[No] Were any procedures done? @ -[No] Diagnosis/symptom? @ -[Acute seizure, recurrent seizure disorder, tongue laceration] Acute, or Chronic, or Acute on Chronic? @ -[Acute] Uncomplicated (without systemic symptoms) or Complicated (systemic symptoms)? @ -[default] Side effects of treatment? @ -[No] Exacerbation, Progression, or Severe Exacerbation? @ -[No] Poses a threat to life or bodily function? How? (Chest pain, [place], VA, pneumonia, PE, COPD, DKA, ARF, appy, cholecystitis, CVA, Diverticulitis, Homicidal, Suicidal, threat to staff... and all critical care pts) @ -[Seizure disorder if not fully evaluated] - Lab Data Result diagrams: 08/12/22 13:31 08/12/22 13:31 Lab Results 08/12/22 08/12/22 08/12/22 Range/Units 13:31 13:31 13:31 WBC 10.8 H (3.8-10.6) k/uL RBC 5.73 (4.30-5.90) m/uL Hgb 18.0 H (13.0-17.5) gm/dL Hct 51.9 (39.0-53.0) % MCV 90.5 (80.0-100.0) fL MCH 31.4 (25.0-35.0) pg MCHC 34.6 (31.0-37.0) g/dL RDW 12.1 (11.5-15.5) % Plt Count 166 (150-450) k/uL MPV 7.4 Neutrophils % 88 % Lymphocytes % 7 % Monocytes % 5 % Eosinophils % 0 % Basophils % 0 % Neutrophils # 9.5 H (1.3-7.7) k/uL Lymphocytes # 0.7 L (1.0-4.8) k/uL Monocytes # 0.5 (0-1.0) k/uL Eosinophils # 0.0 (0-0.7) k/uL Basophils # 0.0 (0-0.2) k/uL D-Dimer 1.28 H (<0.60) mg/L FEU Sodium 136 L (137-145) mmol/L Potassium 4.5 (3.5-5.1) mmol/L Chloride 102 (98-107) mmol/L Carbon Dioxide 24 (22-30) mmol/L Anion Gap 10 mmol/L BUN 17 (9-20) mg/dL Creatinine 0.87 (0.66-1.25) mg/dL Est GFR (CKD-EPI)AfAm >90 (>60 ml/min/1.73 sqM) Est GFR (CKD-EPI)NonAf 88 (>60 ml/min/1.73 sqM) Glucose 132 H (74-99) mg/dL Plasma Lactic Acid Uziel (0.7-2.0) mmol/L Calcium 9.1 (8.4-10.2) mg/dL Magnesium 2.1 (1.6-2.3) mg/dL Total Bilirubin 1.3 (0.2-1.3) mg/dL AST 120 H (17-59) U/L ALT 165 H (4-49) U/L Alkaline Phosphatase 170 H (38-126) U/L Creatine Kinase 90 (55-170) U/L Troponin I (0.000-0.034) ng/mL Total Protein 7.8 (6.3-8.2) g/dL Albumin 4.7 (3.5-5.0) g/dL Lipase 558 H (23-300) U/L Serum Alcohol <10 mg/dL 08/12/22 08/12/22 Range/Units 13:31 13:31 WBC (3.8-10.6) k/uL RBC (4.30-5.90) m/uL Hgb (13.0-17.5) gm/dL Hct (39.0-53.0) % MCV (80.0-100.0) fL MCH (25.0-35.0) pg MCHC (31.0-37.0) g/dL RDW (11.5-15.5) % Plt Count (150-450) k/uL MPV Neutrophils % % Lymphocytes % % Monocytes % % Eosinophils % % Basophils % % Neutrophils # (1.3-7.7) k/uL Lymphocytes # (1.0-4.8) k/uL Monocytes # (0-1.0) k/uL Eosinophils # (0-0.7) k/uL Basophils # (0-0.2) k/uL D-Dimer (<0.60) mg/L FEU Sodium (137-145) mmol/L Potassium (3.5-5.1) mmol/L Chloride (98-107) mmol/L Carbon Dioxide (22-30) mmol/L Anion Gap mmol/L BUN (9-20) mg/dL Creatinine (0.66-1.25) mg/dL Est GFR (CKD-EPI)AfAm (>60 ml/min/1.73 sqM) Est GFR (CKD-EPI)NonAf (>60 ml/min/1.73 sqM) Glucose (74-99) mg/dL Plasma Lactic Acid Uziel 1.1 (0.7-2.0) mmol/L Calcium (8.4-10.2) mg/dL Magnesium (1.6-2.3) mg/dL Total Bilirubin (0.2-1.3) mg/dL AST (17-59) U/L ALT (4-49) U/L Alkaline Phosphatase (38-126) U/L Creatine Kinase (55-170) U/L Troponin I <0.012 (0.000-0.034) ng/mL Total Protein (6.3-8.2) g/dL Albumin (3.5-5.0) g/dL Lipase (23-300) U/L Serum Alcohol mg/dL - EKG Data -: EKG Interpreted by Me EKG Comments: Sinus rhythm of 61 appear interval 112 QRS duration 102 QT/QTC 419/[address] configuration short OH interval noted - Radiology Data Interpreted by me: I did evaluate the imaging interpreted by me. No evidence of pulmonary embolus seen. Disposition Clinical Impression: Seizure, Tongue laceration, Elevated d-dimer Disposition: ADMITTED IP TO THIS HOSP Condition: Stable Referrals: Volodymyr Franz MD [STAFF PHYSICIAN] - 1-2 days Decision Date: 08/12/22 Decision Time: 17:00
[2022-08-12 13:46] LABS: Basophils % (A) 0 %; Eosinophils % (A) 0 %; HCT 51.9 % (39.0-53.0); Lymphocytes # (A) 0.7 k/uL (1.0-4.8); Lymphocytes % (A) 7 %; MCH 31.4 pg (25.0-35.0); MCHC 34.6 g/dL (31.0-37.0); MCV 90.5 fL (80.0-100.0); Mean Platelet Volume 7.4; Monocytes # (A) 0.5 k/uL (0-1.0); Monocytes % (A) 5 %; Neutrophils # (A) 9.5 k/uL (1.3-7.7); Neutrophils % (A) 88 %; Platelet Count 166 k/uL (150-450); RBC 5.73 m/uL (4.30-5.90); RDW 12.1 % (11.5-15.5); WBC 10.8 k/uL (3.8-10.6)
[2022-08-12 13:54] LABS: ALT 165 U/L (4-49); African American GFR (CKD) >90 (>60 ml/min/1.73 sqM); Albumin 4.7 g/dL (3.5-5.0); Alcohol <10 mg/dL; Anion Gap 10 mmol/L; Blood Urea Nitrogen 17 mg/dL (9-20); Calcium 9.1 mg/dL (8.4-10.2); Carbon Dioxide 24 mmol/L (22-30); Chloride 102 mmol/L (98-107); Creatine Kinase 90 U/L (55-170); Glucose 132 mg/dL (74-99); Lipase 558 U/L (23-300); Non-African American GFR(CKD) 88 (>60 ml/min/1.73 sqM); Sodium 136 mmol/L (137-145); Total Bilirubin 1.3 mg/dL (0.2-1.3); Total Protein 7.8 g/dL (6.3-8.2)
[2022-08-12 13:56] LABS: AST 120 U/L (17-59); Alkaline Phosphatase 170 U/L (38-126); Magnesium 2.1 mg/dL (1.6-2.3); Potassium 4.5 mmol/L (3.5-5.1)
--- NOTE | 2022-08-12 17:39 | CT ---
CT CHEST FOR PULMONARY EMBOLISM. EXAMINATION TYPE: CT angio chest DATE OF EXAM: 08/12/2022 INDICATION: Seizure, elevated d-dimer CT DLP: 590.80 mGycm, Automated exposure control for dose reduction was used. CONTRAST: Patient injected with 100 mL of Isovue 370. COMPARISON: None TECHNIQUE: CT of the chest is performed on a spiral scan at 2 mm thick sections. Study is performed with intravenous contrast timed for evaluation for pulmonary embolism. This will limit additional po rtions of the evaluation. 3-D MIP images reconstructed by the technologist are reviewed on the compu ter in the coronal and sagittal planes. FINDINGS: No persistent filling defects are evident to suggest an acute pulmonary embolism. No mediastinal or hilar adenopathy enlarged by CT criteria is evident. The ascending aorta diameter at the level of the main pulmonary artery is 3.3 cm. The main pulmonary artery diameter at the bifur cation is 2.5 cm. Lung windows are clear. Limited CT section through the upper abdomen. Left renal cysts are present.. IMPRESSIONS: 1. No acute pulmonary embolism.
[2022-08-12] MEDS ORDERED: NALOXONE 0.4 MG/ML 1 ML VIAL IV PRN (18:07)
[2022-08-12] MEDS: oxyCODONE-APAP 10-325MG 1 EACH TAB PO PRN (18:36)
[2022-08-12] MEDS: SODIUM CHLORIDE 0.9% 1,000 ML IV SCH (18:36)
[2022-08-12] MEDS: FAMOTIDINE 20 MG/2 ML VIAL IV SCH (20:14)
[2022-08-12] MEDS ORDERED: LORazepam 2 MG/ML INJ IV PRN (21:36)
[2022-08-13] MEDS: oxyCODONE-APAP 10-325MG 1 EACH TAB PO PRN ×4 (01:43→21:41)
--- NOTE | 2022-08-13 08:05 | US ---
EXAMINATION TYPE: US abdomen limited DATE OF EXAM: 08/13/2022 COMPARISON: US 2019, CT, MR CLINICAL HISTORY: Elevated liver enzymes. Elevated liver enzymes. Hx cholecystectomy. TECHNIQUE: Multiple sonographic images of the right upper quadrant are obtained. FINDINGS: EXAM MEASUREMENTS: Liver Length: 14.7 cm Gallbladder Wall: Surgically absent CBD: 1.47 cm Right Kidney: 11.1 x 5.7 x 5.8 cm IRRIGATION EQUIPMENT MECHANIC NOTES: Limited due to gas. Pancreas: Not well seen. Duct measures 0.4 cm at body. Liver: Appears coarse in echotexture. Ducts appear dilated. Gallbladder: Surgically absent. Evidence for sonographic Briones's sign: No CBD: Appears dilated. Right Kidney: Very limited visibility. Hyperechoic area seen superior to the right kidney within the RUQ adjacent to the liver. Area measu res: 3.8 x 4.1 x 4.6 and is within the right adrenal gland This area was seen on prior exam. IMPRESSION: 1. Coarsened echotexture to liver suggestive of hepatocellular disease. 2. 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 This is unchanged from at [facility] 2015.
[2022-08-13] MEDS: SODIUM CHLORIDE 0.9% 1,000 ML IV SCH (08:42)
--- NOTE | 2022-08-13 10:38 | P.CNNES ---
History of Present Illness Consult date: 08/13/22 Requesting physician: Orlando Harmon Reason for Consult: seizure disorder History of Present Illness: This is a 71-year-old gentleman who presented emergency department because of the seizure associate with tongue bite. Some of the history is obtained from medical record. Patient states that it's he does not recall the entire episode which was prior to yesterday. But he was told he had a seizure. He denies any loss of consciousness to his knowledge and remembers the EMS coming to his house in talking to him. He does have a tongue bite over the right anterior side. He denies any urinary or bowel incontinence. Again he does not recall the episode what transpired. He's feeling back to baseline. She denies of any headache. Denies any recent sickness. It seems the patient had a seizure in January 2022 and was in our facility and had extensive workup which was negative for seizure and was not laced on any antiseizure medication since it was a one-time seizure episode. Patient denies any further seizure after that that was witnessed by family members or anybody else. Does acknowledge that he's been having memory issues to his progressive for the last 1 year. He denies any alcohol use any illicit drug use. Patient denies any family history of seizures. Of note in January 2022 patient presented to our facility for seizure and had extensive workup. This seems during that time patient had a recent covert infection and recovered 3 weeks ago. He had a 2-1/2 hour EEG and was reported as no clinical or electrographic seizures. No epileptiform activity was present. Occasional left frontal temporal focal theta range slowing was seen which is not epileptiform in nature. These findings is indicated mild focal cerebral dysfunction involving the corresponding region. Patient had MRI of the brain with and without any reported as nonspecific white matter changes likely secondary due to small vessel ischemic disease. At that time the patient was seen by Dr. Beard. It was felt that his seizure was due to COVID that was recent as well as marijuana use. Some other workup during this hospital visit consisted of: Initial white blood cells 10.8 slightly neutrophilic Sodium is 136, glucose 132, AST is 120 ALT 165, CK is 90 lipase is 558. Urine drug screen is less than 10. Review of Systems Review of system: The 12 point system was reviewed and apparent positive and negative per HPI. Past Medical History Past Medical History: GERD/Reflux, Hypertension, Osteoarthritis (OA) Additional Past Medical History / Comment(s): 01/20/22 IP ADM FOR SEIZURE- UNKNOWN ETIOLOGY(none since). POSITIVE FOR COVID 12/09/21, . chronic hip pain, NECK PAIN and BACK PAIN from a work injury in 1987 (fell > 40 feet). hiatal hernia, History of Any Multi-Drug Resistant Organisms: None Reported Past Surgical History: Cholecystectomy, Orthopedic Surgery Additional Past Surgical History / Comment(s): BENOIT CATARACT WITH LENS IMPLANT. 1987 right hip, shoulder, elbows repair from fall injury Past Anesthesia/Blood Transfusion Reactions: No Reported Reaction Past Psychological History: No Psychological Hx Reported Smoking Status: Former smoker Past Alcohol Use History: None Reported Additional Past Alcohol Use History / Comment(s): QUIT SMOKING ABOUT 25 YRS. 1PPD. Past Drug Use History: None Reported - Past Family History Mother Family Medical History: No Reported History Father Family Medical History: Unable to Obtain Medications and Allergies Home Medications Medication Instructions Recorded Confirmed Type amLODIPine BESYLATE/BENAZEPRIL 1 cap PO DAILY 06/07/16 08/12/22 History [Lotrel 10-40 MG] oxyCODONE-APAP 10-325MG [Percocet 1 tab PO QID PRN 03/05/22 08/12/22 History 10-325 mg] Allergies Allergy/AdvReac Type Severity Reaction Status Date / Time shellfish derived [Shrimp] Allergy Rash/Hives Verified 08/12/22 14:37 Physical Examination - Vital Signs Vital Signs: Vital Signs Temp Pulse Pulse Resp BP BP Pulse Ox 08/13/22 08:59 93 L 08/13/22 08:00 97.3 F L 90 17 156/60 98 08/13/22 01:43 97.6 F 97 16 165/73 97 08/12/22 22:09 98.5 F 62 18 158/98 95 08/12/22 20:49 139/68 08/12/22 20:00 73 18 146/110 94 L 08/12/22 18:00 65 18 157/107 96 08/12/22 17:10 67 18 161/102 98 08/12/22 13:25 57 L 18 161/98 98 08/12/22 12:43 97.0 F L 61 18 176/101 97 FiO2 08/13/22 08:59 21 08/13/22 08:00 08/13/22 01:43 08/12/22 22:09 08/12/22 20:49 08/12/22 20:00 08/12/22 18:00 08/12/22 17:10 08/12/22 13:25 08/12/22 12:43 Intake and Output 08/12/22 08/13/22 08/13/22 22:59 06:59 14:59 Intake Total 0 Output Total 600 Balance -600 Intake: Oral 0 Output: Urine 600 Other: Voiding Method Urinal Toilet Urinal # Voids 1 Weight 90.718 kg GENERAL: The patient is lying in bed and is not in acute distress. CHEST: The heart rate is regular rate rhythm. No murmurs to auscultation. LUNG: Clear to auscultation bilaterally no wheezing noted throughout. Not l abored breathing. ABDOMEN/GI: Bowel sounds present in all 4 quadrants. No tenderness to palpation throughout. NEUROLOGICAL: Higher mental function: The patient is awake, alert, oriented to self, place and time. Patient is following commands. No aphasia and no neglect. Cranial nerves: The pupils are round, equal and reactive to light and accommodation. Visual bower are full to confrontation throughout. Extraocular movement is intact no nystagmus is noted. Facial sensation is normal to touch throughout. The facial strength is normal throughout. Hearing is normal bilaterally to hand rub. Tongue is midline and moved [id number] without any difficulty. Has tongue bite over the right anterior side. No dysarthria is noted. Shoulder shrug is normal bilaterally. Motor: Gait is limited because of right proximal extremity weakness (mostly thigh) but was able to stand up and took minimal steps. The strength is right lower extremity is limited because of old injury in thigh, but had good ankle and knee flexion. Has limited hip flexion. Otherwise 5/5 thought. Normal tone and bulk. Cerebellum: Normal finger to nose bilaterally. Sensation: Sensation is normal to touch throughout. Results - Laboratory Findings CBC and BMP: 08/13/22 06:57 08/13/22 06:57 Abnormal Lab Findings: Abnormal Labs 08/12/22 08/12/22 08/12/22 13:31 13:31 13:31 WBC 10.8 H Hgb 18.0 H Neutrophils # 9.5 H Lymphocytes # 0.7 L D-Dimer 1.28 H Sodium 136 L Glucose 132 H AST 120 H ALT 165 H Alkaline Phosphatase 170 H Lipase 558 H Assessment and Plan Assessment: New onset seizure diagnosis (has seizure in 01/2022 and had one yesterday). First seizure in 01/2022 (initially thought due to post COVID and marijuana) Memory loss for past one year Right proximal extremity weakness due to fall in 1987 Marijuana use Plan: In the ED the patient was given a loading dose of Keppra 1500 mg once. I started the patient on Keppra 500 mg every 12 hours since this is the second seizure he has. I ordered a routine EEG and a CT of the head. Seizure precautions seizure pads Patient had extensive testing and had 2-1/2 hour EEG and MRI of the brain and that the EEG did not show any seizures or any discharges. MRI was negative. I highly recommend an epilepsy monitoring unit as patient and hopefully during that time he'll be off the medication for monitoring seizure and localization. Ordered TSH, vitamin B12, folate level. Recommend the patient follow up with a neurologist as an outpatient and recommend neuropsych evaluation for detailed memory testing. Recommend further investigation of memory issues as outpatient. Patient was notified because of that the seizures per the [place] DMV, to avoid driving for 6 month until seizure-free, avoid heights, avoids swimming unassisted or using heavy machinery. The plan is discussed with patient. Thank you for the consultation. Time with Patient: Greater than 30
[2022-08-13 11:20] LABS: Basophils # (A) 0.05 X 10*3/uL (0.00-0.10); Basophils % (A) 0.6 %; Eosinophils # (A) 0.06 X 10*3/uL (0.04-0.35); Eosinophils % (A) 0.7 %; HCT 47.4 % (39.6-50.0); HGB 15.9 g/dL (13.0-17.0); Immature Grans, Automated 0.1 %; Lymphocytes # (A) 2.05 X 10*3/uL (0.90-5.00); Lymphocytes % (A) 24.7 %; MCHC 33.5 g/dL (32.0-37.0); MCV 92.4 fL (80.0-97.0); Mean Platelet Volume 9.7 fL (9.5-12.2); Monocytes # (A) 0.76 X 10*3/uL (0.20-1.00); Monocytes % (A) 9.2 %; NRBC Per 100 WBC 0 /100 WBCS (0.0-0.0); Neutrophils # (A) 5.37 X 10*3/uL (1.80-7.70); Neutrophils % (A) 64.7 %; Platelet Count 141 X 10*3/uL (140-440); RBC 5.13 X 10*6/uL (4.40-5.60); RDW 11.9 % (11.5-14.5)
[2022-08-13] MEDS: levETIRAcetam 500 MG TAB PO SCH ×2 (11:21→21:34)
[2022-08-13] MEDS: lisinopriL 20 MG TAB PO SCH (11:21)
[2022-08-13] MEDS: amLODIPine 10 MG TAB PO SCH (11:21)
[2022-08-13] MEDS: FAMOTIDINE 20 MG/2 ML VIAL IV SCH ×2 (11:23→21:34)
[2022-08-13 11:30] LABS: African American GFR (CKD) 88.6 (60.0-200.0); Albumin/Globulin Ratio 1.82 (1.60-3.17); BUN/Creat Ratio 12.8 Ratio (12.00-20.00); Blood Urea Nitrogen 12.8 mg/dL (9.0-27.0); Globulin 2.2 g/dL (1.6-3.3); Non-African American GFR(CKD) 76.5 (60.0-200.0); Potassium 4.1 mmol/L (3.5-5.5); Total Protein 6.2 g/dL (6.2-8.2)
--- NOTE | 2022-08-13 15:25 | CT ---
EXAMINATION TYPE: CT brain wo con DATE OF EXAM: 08/13/2022 COMPARISON: 01/20/2022 HISTORY: seizure CT DLP: 1186 mGycm Automated exposure control for dose reduction was used. FINDINGS: There is no evidence of acute intracranial hemorrhage, acute ischemic changes, mass, mass-effect, or extra-axial fluid collection. There is no effacement of cerebral sulci or basal subarachnoid cisterns . There is no hydrocephalus. There is no midline shift. Mild patchy white matter hypodensities in the surgical hemispheres. Rightward nasal septal deviation. Mild mucosal thickening ethmoid air cells. 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 Orbits are symmetric.. 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
--- NOTE | 2022-08-13 21:12 | EEG ---
ELECTROENCEPHALOGRAM REPORT CLINICAL HISTORY: This is a 71-year-old gentleman, who presented because of seizure episodes at home. The video EEG is obtained to evaluate for seizure epileptiform activity. RELEVANT MEDICATION: Keppra. EEG TYPE: A routine 21-channel EEG is performed with video using the 10/20 electrode placement system. DESCRIPTION: Wakefulness is only obtained. During awake state, the posterior-dominant rhythm consists of [id number] voltage of 6-7 hertz activity that is well modulated, well sustained. There is no physiological stage 2 sleep architecture. There is no focal slowing. Interictal and ictal is none. ACTIVATION PROCEDURE: Photic stimulation did not evoke a posterior driving response. There is no abnormality during the photic stimulation. Hyperventilation is not performed. CLINICAL INTERPRETATION: This is an abnormal routine EEG. The background slowing is suggestive of mild encephalopathy. Otherwise, there is no focal slowing, epileptiform discharge or seizure on the EEG. Clinical correlation is recommended. GIANLUCA / AMALIA: [id number] /
--- NOTE | 2022-08-13 23:58 | P.HPIM ---
History of Present Illness H&P Date: 08/13/22 Chief Complaint: Seizures Patient is a 71-year-old male with a known history of hypertension, GERD, osteoarthritis and prior history of seizures while in the hospital currently not on any antilipid drugs, chronic neck pain and back pain and history of pelvic surgery due to work injury in 1987 and prior history of smoking presents to ER due to seizure episode. Patient also had tongue bite. Patient states that he does not know what happened. By the time he woke up EMS was at home to pick him up. No bladder or bowel incontinence. Patient is conscious by the time EMS arrived. No complaints of headache. No fever no chills. No recent illnesses. No neck stiffness. EKG showed sinus rhythm with short NE interval CTA chest showed no acute pulmonary embolism. Ultrasound of the abdomen showed coarsened echotexture to the liver suggestive of hepatocellular disease. 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 There is unchanged from the most recent study in 2015 Laboratory data showed WBC 10.8 hemoglobin 18.0 and platelets 166 D-dimer 1.28 Sodium 136 potassium 4.5 chloride 102 bicarb is 24, BUN 17 and creatinine 0.87 and blood sugar is 132 AST 120 ALT was 165 and alk phos 170. Patient denies any prior history of alcohol use. Lipase level is 548 Serum alcohol level less than 10. Review of Systems Constitutional: Patient denies any fever or chills . no Generalized weakness. Abdomen: Patient denied any nausea or vomiting or abd. pain Cardiovascular: Patient denies any chest pain or short of breath no palpitations. Respiratory: patient denied any cough . no sputum production. No shortness of breath Neurologic: Patient denied any numbness or tingling headache. Musculoskeletal: Patient denies any complaints of joint swelling or deformity. Skin: Negative Psychiatric: Negative Endocrine: No heat or cold intolerance. No recent weight gain. Genitourinary: No dysuria or hematuria. All other 14 point ROS negative except the above Past Medical History Past Medical History: GERD/Reflux, Hypertension, Osteoarthritis (OA) Additional Past Medical History / Comment(s): 01/20/22 IP ADM FOR SEIZURE- UNKNOWN ETIOLOGY(none since). POSITIVE FOR COVID 12/09/21, . chronic hip pain, NECK PAIN and BACK PAIN from a work injury in 1987 (fell > 40 feet). hiatal hernia, History of Any Multi-Drug Resistant Organisms: None Reported Past Surgical History: Cholecystectomy, Orthopedic Surgery Additional Past Surgical History / Comment(s): BENOIT CATARACT WITH LENS IMPLANT. 1988 right hip, shoulder, elbows repair from fall injury Past Anesthesia/Blood Transfusion Reactions: No Reported Reaction Past Psychological History: No Psychological Hx Reported Smoking Status: Former smoker Past Alcohol Use History: None Reported Additional Past Alcohol Use History / Comment(s): QUIT SMOKING ABOUT 27 YRS. 1PPD. Past Drug Use History: None Reported - Past Family History Mother Family Medical History: No Reported History Father Family Medical History: Unable to Obtain Medications and Allergies Home Medications Medication Instructions Recorded Confirmed Type amLODIPine BESYLATE/BENAZEPRIL 1 cap PO DAILY 06/07/16 08/12/22 History [Lotrel 10-40 MG] oxyCODONE-APAP 10-325MG [Percocet 1 tab PO QID PRN 03/05/22 08/12/22 History 10-325 mg] Allergies Allergy/AdvReac Type Severity Reaction Status Date / Time shellfish derived [Shrimp] Allergy Rash/Hives Verified 08/12/22 14:37 Physical Exam Vitals: Vital Signs Temp Pulse Pulse Resp BP BP Pulse Ox 08/13/22 08:59 93 L 08/13/22 08:00 97.3 F L 90 17 156/60 98 08/13/22 01:43 97.6 F 97 16 165/73 97 08/12/22 22:09 98.5 F 62 18 158/98 95 08/12/22 20:49 139/68 08/12/22 20:00 73 18 146/110 94 L 08/12/22 18:00 65 18 157/107 96 08/12/22 17:10 67 18 161/102 98 08/12/22 13:25 57 L 18 161/98 98 08/12/22 12:43 97.0 F L 61 18 176/101 97 FiO2 08/13/22 08:59 21 08/13/22 08:00 08/13/22 01:43 08/12/22 22:09 08/12/22 20:49 08/12/22 20:00 08/12/22 18:00 08/12/22 17:10 08/12/22 13:25 08/12/22 12:43 Intake and Output 08/12/22 08/13/22 08/13/22 22:59 06:59 14:59 Intake Total 0 Output Total 600 Balance -600 Intake: Oral 0 Output: Urine 600 Other: Voiding Method Urinal Toilet Urinal # Voids 1 1 # Bowel Movements 0 Weight 90.718 kg PHYSICAL EXAMINATION: Patient is lying in the bed comfortably, no acute distress, awake alert and oriented.. HEENT: Normocephalic. Neck is supple. Pupils reactive. Nostrils clear. Oral cavity is moist. Neck reveals no JVD, carotid bruits, or thyromegaly. CHEST EXAMINATION: Trachea is central. Symmetrical expansion. Lung bower clear to auscultation and percussion. CARDIAC: Normal S1, S2 with no gallops. No murmurs ABDOMEN: Soft. Bowel sounds present. Nontender. No organomegaly. No abdominal bruits. Extremities: reveal no edema. No clubbing or cyanosis Neurologically awake, alert, oriented x3 with well-coordinated movements. No focal deficits noted Skin: No rash or skin lesions. Psychiatric: Coperative. Nonsuicidal, Musculoskeletal: No joint swelling or deformity. Normal range of motion. Results CBC & Chem 7: 08/13/22 06:57 08/13/22 06:57 Labs: Abnormal Lab Results - Last 24 Hours (Table) 08/12/22 08/12/22 08/12/22 Range/Units 13:31 13:31 13:31 WBC 10.8 H (3.8-10.6) k/uL Hgb 18.0 H (13.0-17.5) gm/dL Neutrophils # 9.5 H (1.3-7.7) k/uL Lymphocytes # 0.7 L (1.0-4.8) k/uL D-Dimer 1.28 H (<0.60) mg/L FEU Sodium 136 L (137-145) mmol/L Glucose 132 H (74-99) mg/dL AST 120 H (17-59) U/L ALT 165 H (4-49) U/L Alkaline Phosphatase 170 H (38-126) U/L Lipase 558 H (23-300) U/L 08/13/22 Range/Units 06:57 WBC (3.8-10.6) k/uL Hgb (13.0-17.5) gm/dL Neutrophils # (1.3-7.7) k/uL Lymphocytes # (1.0-4.8) k/uL D-Dimer (<0.60) mg/L FEU Sodium (137-145) mmol/L Glucose (74-99) mg/dL AST 81 H (17-59) U/L ALT 138 H (4-49) U/L Alkaline Phosphatase 147 H (38-126) U/L Lipase (23-300) U/L Thrombosis Risk Factor Assmnt - DVT/VTE Prophylaxis DVT/VTE Prophylaxis: Pharmacologic Prophylaxis ordered - Choose All That Apply Any of the Below Risk Factors Present?: Yes Each Factor Represents 1 point: Obesity (BMI >25) Other Risk Factors: Yes Each Risk Factor Represents 2 Points: Age 61-74 years Other congenital or acquired thrombophilia - If yes, enter type in comment: No Thrombosis Risk Factor Assessment Total Risk Factor Score: 3 Thrombosis Risk Factor Assessment Level: Moderate Risk Assessment and Plan Assessment: Acute seizure episode. Currently not on any antiepileptic medications at home. Previous history of seizures and January 2022 History of fall from the ladder in 1987 with pelvic fracture and surgery and chronic weakness. History of marijuana use Hypertension Osteoarthritis GERD Elevated lipase level 558 DVT prophylaxis heparin subcu Plan: Patient will be continued on IV hydration with normal saline. Patient was started on Keppra in the ER. Neurology was consulted for evaluation. CT head and EEG was ordered. Continue seizure precautions and fall precautions. Ultrasound of the abdomen was ordered due to elevated liver enzymes and follow- up hepatitis panel. Continue with home blood pressure medications and follow-up closely. Time with Patient: Greater than 30
[2022-08-14] MEDS: SODIUM CHLORIDE 0.9% 1,000 ML IV SCH ×2 (00:39→12:59)
[2022-08-14 07:51] LABS: ALT 96 U/L (4-49); AST 47 U/L (17-59); African American GFR (CKD) >90 (>60 ml/min/1.73 sqM); Albumin 3.9 g/dL (3.5-5.0); Albumin/Globulin Ratio 1.5; Alkaline Phosphatase 126 U/L (38-126); Anion Gap 9 mmol/L; Blood Urea Nitrogen 12 mg/dL (9-20); Calcium 8.7 mg/dL (8.4-10.2); Carbon Dioxide 22 mmol/L (22-30); Chloride 106 mmol/L (98-107); Globulin 2.6 g/dL; Glucose 93 mg/dL (74-99); Non-African American GFR(CKD) >90 (>60 ml/min/1.73 sqM); Potassium 3.8 mmol/L (3.5-5.1); Sodium 137 mmol/L (137-145); Total Bilirubin 1.3 mg/dL (0.2-1.3); Total Protein 6.5 g/dL (6.3-8.2)
[2022-08-14 08:24] VITALS: BP 141/76; PULSE 57; RESP 17; TEMP 98.5
[2022-08-14] MEDS: amLODIPine 10 MG TAB PO SCH (11:00)
[2022-08-14] MEDS: levETIRAcetam 500 MG TAB PO SCH (11:00)
[2022-08-14] MEDS: lisinopriL 20 MG TAB PO SCH (11:01)
[2022-08-14] MEDS: FAMOTIDINE 20 MG/2 ML VIAL IV SCH (11:02)
[2022-08-14] MEDS: oxyCODONE-APAP 10-325MG 1 EACH TAB PO PRN (13:07)
--- NOTE | 2022-08-14 13:57 | P.PN ---
Subjective Progress Note Date: 08/14/22 The patient is seen at bedside and feels he is doing well. Denies of any further neurological issues. NO further passing out or any seizure-like activity. Objective - Vital Signs Vital signs: Vital Signs Temp 98.5 F 08/14/22 08:00 Pulse 57 L 08/14/22 08:00 Resp 17 08/14/22 08:00 BP 141/76 08/14/22 08:00 Pulse Ox 94 L 08/14/22 08:09 FiO2 21 08/13/22 08:59 Intake & Output 08/13/22 08/14/22 08/14/22 18:59 06:59 18:59 Intake Total 450 Output Total 1300 400 Balance -850 -400 Intake: Oral 450 Output: Urine 1300 400 Other: Voiding Method Toilet Toilet Urinal # Voids 2 2 1 # Bowel Movements 0 1 - Exam GENERAL: The patient is lying in bed and is not in acute distress. NEUROLOGICAL: Higher mental function: The patient is awake, alert, oriented to self, place and time. Patient is following commands. No aphasia and no neglect. Cranial nerves: The pupils are round, equal and reactive to light and accommoda tion. Visual bower are full to confrontation throughout. Extraocular movement is intact no nystagmus is noted. Facial sensation is normal to touch throughout. The facial strength is normal throughout. Hearing is normal bilaterally to hand rub. Tongue is midline and moved [id number] without any difficulty. Has tongue bite over the right anterior side. No dysarthria is noted. Shoulder shrug is normal bilaterally. Motor: Gait is limited because of right proximal extremity weakness (mostly thigh) but was able to stand up and took minimal steps. The strength is right lower extremity is limited because of old injury in thigh, but had good ankle and knee flexion. Has limited hip flexion. Otherwise 5/5 thought. Normal tone and bulk. Cerebellum: Normal finger to nose bilaterally. Sensation: Sensation is normal to touch throughout. Some other workup during this hospital visit consisted of: Initial white blood cells 10.8 slightly neutrophilic Sodium is 136, glucose 132, AST is 120 ALT 165, CK is 90 lipase is 558. Urine drug screen is less than 10. Vitamin B12 is 293 Serum folate is 12.9 TSH is 1.0. Routine EEG is abnormal. The background slowing suggestive of mild encephalopathy. Otherwise there is no focal slowing, epileptiform discharges or seizure on the EEG. CT of the brain is reported as degenerative and nonspecific white matter changes most typical of a remote white matter ischemia. Personally reviewed the CT and I agree with the report. - Labs CBC & Chem 7: 08/13/22 06:57 08/14/22 06:42 Labs: Abnormal Lab Results - Last 24 Hours (Table) 08/14/22 Range/Units 06:42 ALT 96 H (4-49) U/L Assessment and Plan Assessment: New onset seizure diagnosis (has seizure in 01/2022 and had one yesterday). First seizure in 01/2022 (initially thought due to post COVID and marijuana) Memory loss for past one year Low normal B12. Right proximal extremity weakness due to fall in 1987 Marijuana use Plan: Continue Keppra 500 mg every 12 hours since this is the second seizure he has. Seizure precautions seizure pads Patient had extensive testing and had 2-1/2 hour EEG and MRI of the brain and that the EEG did not show any seizures or any discharges. MRI was negative. I highly recommend an epilepsy monitoring unit as patient and hopefully during that time he'll be off the medication for monitoring seizure and localization. Patient's vitamin B12 is 293 and I would recommend repeating it within 4 weeks and if it continues to be in the low normal of recommend the supplement with vitamin B12 1000 mg daily. Recommend the patient follow up with a neurologist as an outpatient and recommend neuropsych evaluation for detailed memory testing. Recommend further investigation of memory issues as outpatient. Patient was notified because of that the seizures per the [place] DMV, to avoid driving for 6 month until seizure-free, avoid heights, avoids swimming unassisted or using heavy machinery. The plan is discussed with patient and his nurse. There is no further neurological workup from neurology perspective. Time with Patient: Less than 30
[2022-08-14 16:05] LABS: Hepatitis A Antibody IgM Nonreactive (Nonreactive); Hepatitis B Core IgM Nonreactive (Nonreactive); Hepatitis B Surface Antigen Nonreactive (Nonreactive)
[2022-08-14 16:06] LABS: Hepatitis C IgG Antibody Nonreactive (Nonreactive)
== END 2022-08-14 13:37 | disposition home or self-care (01) | DRG 101 ==
LOC: EC 12:40 → 5NMEDONC 18:07
PROVIDERS: ADMIT Internal Medicine; ATTEND Internal Medicine
DX: G40.909 Epilepsy, unspecified, not intractable, without status epilepticus (principal); S01.512A Laceration without foreign body of oral cavity, initial encounter; K21.9 Gastro-esophageal reflux disease without esophagitis; I10 Essential (primary) hypertension; M19.90 Unspecified osteoarthritis, unspecified site; M25.559 Pain in unspecified hip; M54.2 Cervicalgia; M54.9 Dorsalgia, unspecified; K76.9 Liver disease, unspecified; R79.1 Abnormal coagulation profile; E66.9 Obesity, unspecified; Z68.29 Body mass index [BMI] 29.0-29.9, adult; R41.3 Other amnesia; R74.8 Abnormal levels of other serum enzymes; K44.9 Diaphragmatic hernia without obstruction or gangrene; R53.1 Weakness; G89.29 Other chronic pain; W17.89XD Other fall from one level to another, subsequent encounter; Z86.16 Personal history of COVID-19; Z87.891 Personal history of nicotine dependence; G93.89 Other specified disorders of brain
CPT/HCPCS: 36415; 70450; 71275; 76705; 80053; 80074; 80320; 82140; 82550; 82607; 82746; 83605; 83690; 83735; 84443; 84484; 85025; 85379; 93005; 94760; 95816; 96361; 96365; 96375; 99285

== ENCOUNTER → 2022-09-20 | Outpatient (CLI) | payer MEDICARE ==
--- NOTE | 2022-09-20 23:38 | EEG ---
ELECTROENCEPHALOGRAM REPORT PREAMBLE: This is a 72-year-old male recently admitted and discharged for possible seizure in August in which he severely bit his tongue. He did lose consciousness during the seizure. CURRENT MEDICATIONS: Percocet, Keppra, amlodipine. EEG FINDINGS: This is a 21-channel digital EEG recorded with video component, utilizing 10/20 international system with referential and bipolar montages. Background consists of well-developed, moderately well regulated, predominantly 6 to 7 hertz theta activity seen in bihemispheric region. Background is posterior dominant and does not seem to be clearly reactive to eye opening or closing. Photic driving response was not seen. Different stages of sleep were not seen. No focal or generalized epileptiform activity was seen. EKG channel showed no obvious arrhythmia. IMPRESSION: This is an abnormal EEG due to diffuse background slowing, suggestive of mild encephalopathy. No focal, lateralized or epileptiform activity was seen. MMODL / IJN: [id number] /
== END ==
LOC: NEUROMAIN 08:30
PROVIDERS: ATTEND Student in an Organized Health Care Education/Training Program
DX: R56.9 Unspecified convulsions (principal); Z91.013 Allergy to seafood
CPT/HCPCS: 95816

== ENCOUNTER → 2024-05-28 | Outpatient (CLI) | payer MEDICARE ==
[2024-05-28 21:13] LABS: ALT 96 U/L (10-49); AST 52 U/L (14-35); Albumin 4.6 g/dL (3.8-4.9); Albumin/Globulin Ratio 1.92 Ratio (1.60-3.17); Alkaline Phosphatase 186 U/L (41-126); Blood Urea Nitrogen 16.2 mg/dL (9.0-27.0); Calcium 9.5 mg/dL (8.7-10.3); Carbon Dioxide 22.5 mmol/L (21.6-31.8); Chloride 103 mmol/L (96-109); Globulin 2.4 g/dL (1.6-3.3); Glucose 114 mg/dL (70-110); Potassium 4.2 mmol/L (3.5-5.5); Sodium 138 mmol/L (135-145); Total Bilirubin 0.8 mg/dL (0.3-1.2)
[2024-05-28 21:30] LABS: Basophils # (A) 0.03 X 10*3/uL (0.00-0.10); Basophils % (A) 0.3 %; Eosinophils # (A) 0.02 X 10*3/uL (0.04-0.35); Eosinophils % (A) 0.2 %; HCT 50.4 % (39.6-50.0); HGB 17.1 g/dL (13.0-17.0); Lymphocytes # (A) 2.02 X 10*3/uL (0.90-5.00); Lymphocytes % (A) 22.9 %; MCH 31.3 pg (27.0-32.0); MCHC 33.9 g/dL (32.0-37.0); MCV 92.3 FL (80.0-97.0); Mean Platelet Volume 9.6 FL (9.5-12.2); Monocytes # (A) 0.73 X 10*3/uL (0.20-1.00); Monocytes % (A) 8.3 %; NRBC Per 100 WBC 0 X 10*3/uL (0.00-0.01); Neutrophils # (A) 5.99 X 10*3/uL (1.80-7.70); Platelet Count 200 X 10*3/uL (140-440); RBC 5.46 X 10*6/uL (4.40-5.60); WBC 8.82 X 10*3/uL (4.50-10.00)
== END | disposition home or self-care (01) ==
LOC: LABWHC1 12:43
PROVIDERS: ATTEND Family Medicine
DX: Z00.01 Encounter for general adult medical examination with abnormal findings (principal); E55.9 Vitamin D deficiency, unspecified
CPT/HCPCS: 36415; 80053; 82306; 85025

== ENCOUNTER 2024-09-06 19:07 | Emergency (ER) | payer MEDICARE ==
--- NOTE | 2024-09-06 19:35 | ED ---
General Adult HPI - General Chief complaint: Nausea/Vomiting/Diarrhea Stated complaint: nausea,chest tightness Time Seen by Provider: 09/06/24 19:19 Source: patient, RN notes reviewed Mode of arrival: wheelchair Limitations: no limitations - History of Present Illness Initial comments: This is a 74-year-old male with history including seizures, hypertension and GERD presenting with "sick" symptoms x 3 days. Patient endorses constant chest discomfort/pressure, difficulty breathing, weakness and nausea/vomiting. Patient states chest discomfort radiates to bilateral shoulders and neck. Patient states has similar symptoms for about the same amount of time. Denies history of AMI, orthopnea, dizziness, diaphoresis, presyncope. Denies fever, chills, hematemesis, diarrhea, urinary symptoms. Onset/Timin -: days(s) - Related Data Home Medications Medication Instructions Recorded Confirmed amLODIPine BESYLATE/BENAZEPRIL 1 cap PO DAILY 06/07/16 08/12/22 [Lotrel 10-40 MG] oxyCODONE-APAP 10-325MG [Percocet 1 tab PO QID PRN 03/05/22 08/12/22 10-325 mg] Previous Rx's Medication Instructions Recorded levETIRAcetam [Keppra] 500 mg PO Q12HR #60 tab 08/14/22 Allergies Allergy/AdvReac Type Severity Reaction Status Date / Time shellfish derived [Shrimp] Allergy Rash/Hives Verified 09/06/24 19:11 Review of Systems ROS Statement: Those systems with pertinent positive or pertinent negative responses have been documented in the HPI. ROS Other: All systems not noted in ROS Statement are negative. Past Medical History Past Medical History: GERD/Reflux, Hypertension, Osteoarthritis (OA) Additional Past Medical History / Comment(s): 01/20/22 IP ADM FOR SEIZURE- UNKNOWN ETIOLOGY(none since). POSITIVE FOR COVID 12/09/21, . chronic hip pain, NECK PAIN and BACK PAIN from a work injury in 1987 (fell > 40 feet). hiatal hernia, History of Any Multi-Drug Resistant Organisms: None Reported Past Surgical History: Cholecystectomy, Orthopedic Surgery Additional Past Surgical History / Comment(s): BENOIT CATARACT WITH LENS IMPLANT. 1987 right hip, shoulder, elbows repair from fall injury Past Anesthesia/Blood Transfusion Reactions: No Reported Reaction Past Psychological History: No Psychological Hx Reported Smoking Status: Former smoker Past Alcohol Use History: None Reported Past Drug Use History: None Reported - Past Family History Mother Family Medical History: No Reported History Father Family Medical History: Unable to Obtain General Exam Limitations: no limitations General appearance: alert, in no apparent distress Head exam: Present: atraumatic, normocephalic, normal inspection Eye exam: Present: normal appearance, PERRL, EOMI. Absent: scleral icterus, conjunctival injection, periorbital swelling ENT exam: Present: normal exam, mucous membranes moist Neck exam: Present: normal inspection. Absent: tenderness, meningismus, lymphadenopathy Respiratory exam: Present: normal lung sounds bilaterally. Absent: respiratory distress, wheezes, rales, rhonchi, stridor, accessory muscle use, decreased breath sounds, prolonged expiratory Cardiovascular Exam: Present: regular rate, normal rhythm, normal heart sounds. Absent: systolic murmur, diastolic murmur, rubs, gallop, clicks GI/Abdominal exam: Present: soft, tenderness (Positive epigastric TTP without guarding), normal bowel sounds. Absent: distended, guarding, rebound, rigid Extremities exam: Present: normal inspection, full ROM, normal capillary refill. Absent: tenderness, pedal edema, joint swelling, calf tenderness Back exam: Present: normal inspection Neurological exam: Present: alert, oriented X3, CN II-XII intact Psychiatric exam: Present: normal affect, normal mood Skin exam: Present: warm, dry, intact, normal color. Absent: rash Course Vital Signs 09/06/24 09/06/24 09/06/24 19:09 20:06 20:40 Temperature 97.8 F 98.3 F Pulse Rate 90 77 77 Respiratory 17 20 13 Rate Blood Pressure 183/112 179/88 156/97 O2 Sat by Pulse 98 99 96 Oximetry 09/06/24 09/07/24 22:00 00:38 Temperature Pulse Rate 65 70 Respiratory 16 18 Rate Blood Pressure 162/81 176/91 O2 Sat by Pulse 97 98 Oximetry Medical Decision Making - Medical Decision Making Was pt. sent in by a medical professional or institution (, PA, HEAD BELLHOP CAPTAIN, urgent care, hospital, or [facility]...) When possible be specific @ -[No] Did you speak to anyone other than the patient for history (EMS, parent, family, police, friend...)? What history was obtained from this source @ -[No] Did you review nursing and triage notes (agree or disagree)? Why? @ -[I reviewed and agree with nursing and triage notes] Were old charts reviewed (outside hosp., previous admission, EMS record, old EKG, old radiological studies, urgent care reports/EKG's, [facility] records)? Report findings @ -[No old charts were reviewed] Differential Diagnosis (chest pain, altered mental status, abdominal pain women, abdominal pain men, vaginal bleeding, weakness, fever, dyspnea, syncope, headache, dizziness, GI bleed, back pain, seizure, CVA, palpatations, mental health, musculoskeletal)? @ -Differential Weakness: Hypoglycemia, shock, sepsis, hyponatremia, anemia, infection, AR, ETOH, adverse medicine reaction, overdose, stroke, this is not meant to be an all-inclusive list. EKG interpreted by me (3pts min.). @ -A-fib without ST deviation or T wave inversion. Ventricular rate 67 bpm, QRS 98 ms, QTc 374 ms. X-rays interpreted by me (1pt min.). @ -[None done] CT interpreted by me (1pt min.). @ -[None done] U/S interpreted by me (1pt. min.). @ -[None done] What testing was considered but not performed or refused? (CT, X-rays, U/S, labs)? Why? @ -[None] What meds were considered but not given or refused? Why? @ -[None] Did you discuss the management of the patient with other professionals (chana teran i.e. , PA, HEAD BELLHOP CAPTAIN, lab, RT, psych nurse, social work professor, solution mixer, teacher, aerospace engineer officer armament, manager of case)? Give summary @ -[No] Was smoking cessation discussed for >3mins.? @ -[No] Was critical care preformed (if so, how long)? @ -[No] Were there social determinants of health that impacted care today? How? (Homelessness, low income, unemployed, alcoholism, drug addiction, transportation, low edu. Level, literacy, decrease access to med. care, detention, rehab)? @ -[No] Was there de-escalation of care discussed even if they declined (Discuss DNR or withdrawal of care, Hospice)? DNR status @ -[No] What co-morbidities impacted this encounter? (DM, HTN, Smoking, COPD, CAD, Cancer, CVA, ARF, Chemo, Hep., AIDS, mental health diagnosis, sleep apnea, morbid obesity)? @ -[None] Was patient admitted / discharged? Hospital course, mention meds given and route, prescriptions, significant lab abnormalities, going to OR and other pertinent info. @ -[hospital course] Undiagnosed new problem with uncertain prognosis? @ -[No] Drug Therapy requiring intensive monitoring for toxicity (Heparin, Nitro, Ins ulin, Cardizem)? @ -[No] Were any procedures done? @ -[No] Diagnosis/symptom? @ -[default] Acute, or Chronic, or Acute on Chronic? @ -Acute Uncomplicated (without systemic symptoms) or Complicated (systemic symptoms)? @ -Complicated Side effects of treatment? @ -[No] Exacerbation, Progression, or Severe Exacerbation? @ -[No] Poses a threat to life or bodily function? How? (Chest pain, USA, AR, pneumonia, PE, COPD, DKA, ARF, appy, cholecystitis, CVA, Diverticulitis, Homicidal, Suicidal, threat to staff... and all critical care pts) @ -[No] - Lab Data Result diagrams: 09/06/24 20:42 09/06/24 20:42 Lab Results 09/06/24 09/06/24 09/06/24 Range/Units 20:08 20:42 20:42 WBC 13.20 H (4.50-10.00) 10*3/uL RBC 5.24 (4.40-5.60) 10*6/uL Hgb 17.2 H (13.0-17.0) g/dL Hct 45.8 (39.6-50.0) % MCV 87.4 (80.0-97.0) fL MCH 32.8 H (27.0-32.0) pg MCHC 37.6 H (32.0-37.0) g/dL Plt Count 192 (140-440) 10*3/uL MPV 9.5 (9.5-12.2) fL Immature Gran % (Auto) 0.8 % Neutrophils % 81.0 % Lymphocytes % 8.5 % Monocytes % 9.5 % Eosinophils % 0.0 % Basophils % 0.2 % Immature Gran # 0.11 H (0.00-0.04) 10*3/uL Neutrophils # 10.70 H (1.80-7.70) 10*3/uL Lymphocytes # 1.12 (0.90-5.00) 10*3/uL Monocytes # 1.25 H (0.20-1.00) 10*3/uL Eosinophils # 0.00 L (0.04-0.35) 10*3/uL Basophils # 0.02 (0.00-0.10) 10*3/uL Manual Slide Review Performed Large Platelets Present PT 13.0 H (10.0-12.5) sec INR 1.2 H (<1.2) APTT 20.6 L (22.0-30.0) sec Sodium (137-145) mmol/L Potassium (3.5-5.1) mmol/L Chloride (98-107) mmol/L Carbon Dioxide (22-30) mmol/L Anion Gap mmol/L BUN (9-20) mg/dL Creatinine (0.66-1.25) mg/dL Est GFR (CKD-EPI)AfAm (>60 ml/min/1.73 sqM) Est GFR (CKD-EPI)NonAf (>60 ml/min/1.73 sqM) Glucose (74-99) mg/dL Plasma Lactic Acid Uziel (0.7-2.0) mmol/L Calcium (8.4-10.2) mg/dL Magnesium (1.6-2.3) mg/dL Total Bilirubin (0.2-1.3) mg/dL AST (17-59) U/L ALT (4-49) U/L Alkaline Phosphatase (38-126) U/L Troponin I (0.000-0.034) ng/mL Total Protein (6.3-8.2) g/dL Albumin (3.5-5.0) g/dL Lipase (23-300) U/L Influenza Type A (PCR) Not Detected (Not Detectd) Influenza Type B (PCR) Not Detected (Not Detectd) RSV (PCR) Not Detected (Not Detectd) SARS-CoV-2 (PCR) Not Detected (Not Detectd) 09/06/24 09/06/24 09/06/24 Range/Units 20:42 20:42 20:42 WBC (4.50-10.00) 10*3/uL RBC (4.40-5.60) 10*6/uL Hgb (13.0-17.0) g/dL Hct (39.6-50.0) % MCV (80.0-97.0) fL MCH (27.0-32.0) pg MCHC (32.0-37.0) g/dL Plt Count (140-440) 10*3/uL MPV (9.5-12.2) fL Immature Gran % (Auto) % Neutrophils % % Lymphocytes % % Monocytes % % Eosinophils % % Basophils % % Immature Gran # (0.00-0.04) 10*3/uL Neutrophils # (1.80-7.70) 10*3/uL Lymphocytes # (0.90-5.00) 10*3/uL Monocytes # (0.20-1.00) 10*3/uL Eosinophils # (0.04-0.35) 10*3/uL Basophils # (0.00-0.10) 10*3/uL Manual Slide Review Large Platelets PT (10.0-12.5) sec INR (<1.2) APTT (22.0-30.0) sec Sodium 134 L (137-145) mmol/L Potassium 2.9 L (3.5-5.1) mmol/L Chloride 99 (98-107) mmol/L Carbon Dioxide 22 (22-30) mmol/L Anion Gap 13 mmol/L BUN 23 H (9-20) mg/dL Creatinine 0.83 (0.66-1.25) mg/dL Est GFR (CKD-EPI)AfAm >90 (>60 ml/min/1.73 sqM) Est GFR (CKD-EPI)NonAf 88 (>60 ml/min/1.73 sqM) Glucose 121 H (74-99) mg/dL Plasma Lactic Acid Uziel 1.3 (0.7-2.0) mmol/L Calcium 9.3 (8.4-10.2) mg/dL Magnesium (1.6-2.3) mg/dL Total Bilirubin 2.9 H (0.2-1.3) mg/dL AST 178 H (17-59) U/L ALT 257 H (4-49) U/L Alkaline Phosphatase 132 H (38-126) U/L Troponin I <0.012 (0.000-0.034) ng/mL Total Protein 6.9 (6.3-8.2) g/dL Albumin 4.4 (3.5-5.0) g/dL Lipase 391 H (23-300) U/L Influenza Type A (PCR) (Not Detectd) Influenza Type B (PCR) (Not Detectd) RSV (PCR) (Not Detectd) SARS-CoV-2 (PCR) (Not Detectd) 09/06/24 Range/Units 20:42 WBC (4.50-10.00) 10*3/uL RBC (4.40-5.60) 10*6/uL Hgb (13.0-17.0) g/dL Hct (39.6-50.0) % MCV (80.0-97.0) fL MCH (27.0-32.0) pg MCHC (32.0-37.0) g/dL Plt Count (140-440) 10*3/uL MPV (9.5-12.2) fL Immature Gran % (Auto) % Neutrophils % % Lymphocytes % % Monocytes % % Eosinophils % % Basophils % % Immature Gran # (0.00-0.04) 10*3/uL Neutrophils # (1.80-7.70) 10*3/uL Lymphocytes # (0.90-5.00) 10*3/uL Monocytes # (0.20-1.00) 10*3/uL Eosinophils # (0.04-0.35) 10*3/uL Basophils # (0.00-0.10) 10*3/uL Manual Slide Review Large Platelets PT (10.0-12.5) sec INR (<1.2) APTT (22.0-30.0) sec Sodium (137-145) mmol/L Potassium (3.5-5.1) mmol/L Chloride (98-107) mmol/L Carbon Dioxide (22-30) mmol/L Anion Gap mmol/L BUN (9-20) mg/dL Creatinine (0.66-1.25) mg/dL Est GFR (CKD-EPI)AfAm (>60 ml/min/1.73 sqM) Est GFR (CKD-EPI)NonAf (>60 ml/min/1.73 sqM) Glucose (74-99) mg/dL Plasma Lactic Acid Uziel (0.7-2.0) mmol/L Calcium (8.4-10.2) mg/dL Magnesium 2.1 (1.6-2.3) mg/dL Total Bilirubin (0.2-1.3) mg/dL AST (17-59) U/L ALT (4-49) U/L Alkaline Phosphatase (38-126) U/L Troponin I (0.000-0.034) ng/mL Total Protein (6.3-8.2) g/dL Albumin (3.5-5.0) g/dL Lipase (23-300) U/L Influenza Type A (PCR) (Not Detectd) Influenza Type B (PCR) (Not Detectd) RSV (PCR) (Not Detectd) SARS-CoV-2 (PCR) (Not Detectd) Disposition Clinical Impression: Elevated liver transaminase level, Hypokalemia Disposition: HOME SELF-CARE Condition: Fair Instructions (If sedation given, give patient instructions): Hypokalemia (ED) Additional Instructions: Increase intake of bananas, beans, potatoes and leafy greens for potassium. Increase oral rehydration. Follow-up with primary care in the next 24-48 hours. Is patient prescribed a controlled substance at d/c from ED?: No Referrals: Volodymyr Franz MD [Primary Care Provider] - 1-2 days Time of Disposition: 01:10
[2024-09-06 20:48] VITALS: TEMP 98.3
[2024-09-06] MEDS: SODIUM CHLORIDE 0.9% 1,000 ML IV STA (20:53)
[2024-09-06] MEDS: PANTOPRAZOLE 40 MG/10 ML VIAL IVP STA (20:54)
[2024-09-06] MEDS: FAMOTIDINE 20 MG TAB PO STA (20:54)
[2024-09-06] MEDS: LIDOCAINE VISCOUS 2% 15 ML CUP PO ONE (20:54)
[2024-09-06 21:00] LABS: Influenza A Not Detected (Not Detectd); Influenza B Not Detected (Not Detectd); RSV Not Detected (Not Detectd)
[2024-09-06 21:09] LABS: INR 1.2 (<1.2); Partial Thromboplastin Time 20.6 sec (22.0-30.0)
[2024-09-06 21:16] LABS: Basophils # (A) 0.02 10*3/uL (0.00-0.10); Basophils % (A) 0.2 %; HCT 45.8 % (39.6-50.0); HGB 17.2 g/dL (13.0-17.0); Lymphocytes # (A) 1.12 10*3/uL (0.90-5.00); Lymphocytes % (A) 8.5 %; MCH 32.8 pg (27.0-32.0); MCHC 37.6 g/dL (32.0-37.0); MCV 87.4 fL (80.0-97.0); Mean Platelet Volume 9.5 fL (9.5-12.2); Monocytes # (A) 1.25 10*3/uL (0.20-1.00); Monocytes % (A) 9.5 %; Platelet Count 192 10*3/uL (140-440); RBC 5.24 10*6/uL (4.40-5.60); RDW 11.6 % (11.5-14.5)
[2024-09-06 21:21] LABS: ALT 257 U/L (4-49); AST 178 U/L (17-59); African American GFR (CKD) >90 (>60 ml/min/1.73 sqM); Albumin 4.4 g/dL (3.5-5.0); Alkaline Phosphatase 132 U/L (38-126); Anion Gap 13 mmol/L; Blood Urea Nitrogen 23 mg/dL (9-20); Calcium 9.3 mg/dL (8.4-10.2); Carbon Dioxide 22 mmol/L (22-30); Chloride 99 mmol/L (98-107); Glucose 121 mg/dL (74-99); Lipase 391 U/L (23-300); Non-African American GFR(CKD) 88 (>60 ml/min/1.73 sqM); Potassium 2.9 mmol/L (3.5-5.1); Sodium 134 mmol/L (137-145); Total Bilirubin 2.9 mg/dL (0.2-1.3); Total Protein 6.9 g/dL (6.3-8.2)
[2024-09-06 21:53] LABS: Large Platelets Present
[2024-09-06] MEDS: POTASSIUM CHLORIDE ER 20 MEQ TAB.ER PO STA (22:16)
--- NOTE | 2024-09-06 22:39 | XR ---
EXAMINATION TYPE: XR chest 2V DATE OF EXAM: 09/06/2024 9:07 PM COMPARISON: 01/23/2022 CLINICAL INDICATION: Male, 74 years old with history of Chest pressure, TECHNIQUE: XR chest 2V view(s) obtained. FINDINGS: The heart size is normal. The pulmonary vasculature is normal. The lungs are clear. Nipple shadow may be at the left base. IMPRESSION: 1. No acute pulmonary process. 2. Suspected nipple shadow left base. Follow-up can be performed [facility], Workstation: [facility], 09/06/2024 10:37 PM
[2024-09-06] MEDS: FAMOTIDINE 20 MG/2 ML VIAL IV STA (23:01)
[2024-09-06] MEDS: diphenhydrAMINE 50 MG/ML 1 ML VIAL IVP STA (23:01)
[2024-09-06] MEDS: methylPREDNISolone SOD SUCCI 125 MG/2 ML VIAL IV STA (23:01)
[2024-09-07] MEDS: POTASSIUM BICARBONATE/CIT AC 20 MEQ TABLET.EFF PO ONE (00:36)
--- NOTE | 2024-09-07 00:48 | CT ---
EXAMINATION TYPE: CT abdomen pelvis w con DATE OF EXAM: 09/06/2024 11:26 PM COMPARISON: CTA chest 1423 CLINICAL INDICATION: Male, 74 years old with history of Weakness, elevated LFT, pt states "sick" n/v weakness TECHNIQUE: Axial images were obtained from above the diaphragm to the pubic rami in the axial plane a t 5 mm thick sections. Reconstructed images are reviewed on the computer in the coronal plane. CONTRAST: 100MlL mL of Isovue 300. Study performed without Oral Contrast DLP: 953.6 mGycm, Automated exposure control for dose reduction was used. FINDINGS: Limited CT sections are obtained the lung bases. The lung bases are clear. CT ABDOMEN: Liver: Biliary dilatation is present. This was present previously Spleen: Normal Pancreas: Normal Adrenal glands: There may be a large fat mass on the right adrenal gland measuring up tor 4.1 cm. Rig ht adrenal gland is minimal thickening. Gallbladder: Surgically absent common bile duct appears prominent Kidneys: No masses are evident. No hydronephrosis is present. There is a 3.5 cm cyst on the anterio r lateral upper pole left kidney. A medial 4.9 cm cyst is present. A posterior mid left renal cyst me asuring 2.6 cm is present. Small cortical renal cysts on the posterior right kidney measuring 1.5 cm. There are couple of additional smaller cortical renal cysts present. Delayed images were obtained t hrough the kidneys, which remain unremarkable. Aorta: Vascular calcification is within the aorta. Inferior vena cava: Normal. CT PELVIS: Loops of bowel within the abdomen and pelvis are normal. Scattered diverticuli are present. This s tudy is lateral contrast limiting bowel evaluation. Appendix: Normal as visualized. Urinary bladder: Normal. Genitourinary structures: Osseous structures: No suspicious lytic or sclerotic lesions. Prior pelvic fracture and repair is eduardo dent on the right. Deformity of the right femoral neck. Facet hypertrophy is in the lumbar spine IMPRESSION: 1. Biliary dilatation was present previously in 2022. This is slightly more prominent over the inter tatiana. Common bile duct dilatation is present. 2. Diverticulosis without acute diverticulitis. 3. Multiple bilateral renal cysts [facility], Workstation: [facility], 09/07/2024 12:46 AM
[2024-09-07 00:54] LABS: Appearance,Urine Clear (Clear); Bilirubin,Urine Negative (Negative); Blood,Urine Negative (Negative); Color,Urine Light Yellow; Glucose,Urine (UA) Negative (Negative); Ketones,Urine 1+ (Negative); Leukocyte Esterase,Urine Negative (Negative); Nitrite,Urine Negative (Negative); Protein,Urine Negative (Negative)
[2024-09-07 01:23] VITALS: BP 154/93; PULSE 67; RESP 16
[2024-09-07 04:18] LABS: Specific Gravity,Urine >1.050 (1.001-1.035)
== END 2024-09-07 01:23 | disposition home or self-care (01) ==
LOC: EC 19:07
DX: E87.6 Hypokalemia (principal); R74.01 Elevation of levels of liver transaminase levels; Z87.891 Personal history of nicotine dependence; Z91.013 Allergy to seafood
CPT/HCPCS: 36415; 93005; 80053; 83605; 83690; 84484; 85025; 85610; 85730; 87636; 71046; 74177; 99284; 96374; 96375; 96361; J1200; Q9967; J2919; J2470; J1308; 81003; 83735